=== PATIENT | female | born 1990 | race Caucasian/White ===

== ENCOUNTER 2018-09-28 14:56 | Observation (INO) | payer OTHER ==
--- NOTE | 2018-09-28 16:07 | XR ---
EXAMINATION TYPE: XR chest 2V DATE OF EXAM: 09/28/2018 COMPARISON: NONE HISTORY: Chest pain TECHNIQUE: Frontal and lateral views of the chest are obtained. FINDINGS: There is no focal air space opacity, pleural effusion, or pneumothorax seen. The cardiac silhouette size is within normal limits. The osseous structures are intact. There are cardiac leads . IMPRESSION: No acute cardiopulmonary process.
[2018-09-28 16:33] LABS: ALT 30 U/L (9-52); AST 20 U/L (14-36); Albumin 4.1 g/dL (3.5-5.0); Alkaline Phosphatase 59 U/L (38-126); Anion Gap 10 mmol/L; Blood Urea Nitrogen 10 mg/dL (7-17); Calcium 9.8 mg/dL (8.4-10.2); Carbon Dioxide 20 mmol/L (22-30); Chloride 109 mmol/L (98-107); Glucose 113 mg/dL (74-99); Lipase 66 U/L (23-300); Magnesium 1.7 mg/dL (1.6-2.3); Potassium 5.3 mmol/L (3.5-5.1); Sodium 139 mmol/L (137-145); Total Bilirubin 0.7 mg/dL (0.2-1.3); Total Protein 7.4 g/dL (6.3-8.2)
[2018-09-28 16:41] LABS: Basophils # (A) 0.1 k/uL (0-0.2); Basophils % (A) 1 %; Eosinophils # (A) 0.4 k/uL (0-0.7); Eosinophils % (A) 3 %; HGB 14.1 gm/dL (11.4-16.0); Lymphocytes # (A) 2.7 k/uL (1.0-4.8); Lymphocytes % (A) 16 %; MCH 27.3 pg (25.0-35.0); MCHC 34.4 g/dL (31.0-37.0); MCV 79.4 fL (80.0-100.0); Mean Platelet Volume 7.3; Monocytes # (A) 0.8 k/uL (0-1.0); Monocytes % (A) 5 %; Neutrophils # (A) 12.8 k/uL (1.3-7.7); Neutrophils % (A) 75 %; Platelet Count 445 k/uL (150-450); RBC 5.17 m/uL (3.80-5.40); RDW 13.4 % (11.5-15.5); WBC 16.9 k/uL (3.8-10.6)
--- NOTE | 2018-09-28 16:52 | ED ---
General Adult HPI - General Chief complaint: Chest Pain Stated complaint: Chest Discomfort Time Seen by Provider: 09/28/18 15:25 Source: patient, RN notes reviewed, old records reviewed Mode of arrival: ambulatory Limitations: no limitations - History of Present Illness Initial comments: 28-year-old female history of hypertension, diabetes presenting with 3 days of intermittent chest pain. Describes the pain as a squeezing sensation in the center of her chest. She also reports some epigastric pain and right upper quadrant pain. Patient was sent over by her primary care physician for evaluation, given her risk factors. She denies pain at the time my evaluation. Denies dyspnea. Denies significant vomiting. Denies abdominal pain. Denies diaphoresis. No known history of coronary artery disease. No history of DVT or PE. - Related Data Home Medications Medication Instructions Recorded Confirmed Aspirin EC [Ecotrin Low Dose] 81 mg PO DAILY 09/28/18 09/28/18 Cholecalciferol [Vitamin D3] 5,000 unit PO DAILY 09/28/18 09/28/18 Ferrous Sulfate [Feosol] 325 mg PO DAILY 09/28/18 09/28/18 [place] Control 1 tab PO DAILY 09/28/18 09/28/18 Lisinopril [Zestril] 10 mg PO DAILY 09/28/18 09/28/18 [place]-3 Fatty Acids/Fish Oil [Fish 1 cap PO DAILY 09/28/18 09/28/18 Oil 1,000 mg Softgel] metFORMIN HCL 1,000 mg PO BID 09/28/18 09/28/18 Allergies Allergy/AdvReac Type Severity Reaction Status Date / Time No Known Allergies Allergy Verified 09/28/18 15:54 Review of Systems ROS Statement: Those systems with pertinent positive or pertinent negative responses have been documented in the HPI. ROS Other: All systems not noted in ROS Statement are negative. Past Medical History Past Medical History: Diabetes Mellitus, Hypertension History of Any Multi-Drug Resistant Organisms: None Reported Past Surgical History: No Surgical Hx Reported Past Psychological History: No Psychological Hx Reported Smoking Status: Never smoker Past Alcohol Use History: Occasional Past Drug Use History: None Reported General Exam Limitations: no limitations General appearance: alert, in no apparent distress Head exam: Present: atraumatic, normocephalic Eye exam: Present: normal appearance, PERRL ENT exam: Present: normal exam Neck exam: Present: normal inspection. Absent: tenderness, meningismus Respiratory exam: Present: normal lung sounds bilaterally. Absent: respiratory distress, wheezes Cardiovascular Exam: Present: regular rate, normal rhythm GI/Abdominal exam: Present: soft, tenderness (Mild epigastric and right upper quadrant tenderness). Absent: distended, guarding Extremities exam: Present: normal inspection, normal capillary refill. Absent: pedal edema Neurological exam: Present: alert, oriented X3, CN II-XII intact. Absent: motor sensory deficit Psychiatric exam: Present: normal affect, normal mood Skin exam: Present: warm, dry, intact. Absent: cyanosis, diaphoretic Course Vital Signs 09/28/18 09/28/18 15:21 17:18 Temperature 98.3 F Pulse Rate 82 90 Respiratory 20 16 Rate Blood Pressure 146/99 151/80 O2 Sat by Pulse 99 100 Oximetry EKG Findings - EKG Comments: EKG Findings:: EKG: Normal sinus rhythm, rate 91, MN interval 152, QRS duration 92, QTC 4:30, no ST segment elevation or depression. T waves are upright. Medical Decision Making - Medical Decision Making 28-year-old female with past central chest pressure, and intermittent right upper quadrant pain. In the emergency department she receives workup for both right upper quadrant pain and chest pain. EKG is nonischemic, initial troponin negative. Chest x-ray negative for acute cardiopulmonary disease. Ultrasound does show concern for increased gallbladder wall thickness as well as numerous gallstones and cholelithiasis. Case is discussed with general surgery, Dr. Verdugo, we will admit for IV antibiotics, possible cholecystectomy. Patient placed on a low-fat diet. Culture,serial troponins will be obtained to complete chest pain workup. - Lab Data Result diagrams: 09/28/18 16:15 09/28/18 16:15 Lab Results 09/28/18 09/28/18 09/28/18 Range/Units 16:15 16:15 16:15 WBC 16.9 H (3.8-10.6) k/uL RBC 5.17 (3.80-5.40) m/uL Hgb 14.1 (11.4-16.0) gm/dL Hct 41.0 (34.0-46.0) % MCV 79.4 L (80.0-100.0) fL MCH 27.3 (25.0-35.0) pg MCHC 34.4 (31.0-37.0) g/dL RDW 13.4 (11.5-15.5) % Plt Count 445 (150-450) k/uL Neutrophils % 75 % Lymphocytes % 16 % Monocytes % 5 % Eosinophils % 3 % Basophils % 1 % Neutrophils # 12.8 H (1.3-7.7) k/uL Lymphocytes # 2.7 (1.0-4.8) k/uL Monocytes # 0.8 (0-1.0) k/uL Eosinophils # 0.4 (0-0.7) k/uL Basophils # 0.1 (0-0.2) k/uL PT (9.0-12.0) sec INR (<1.2) APTT (22.0-30.0) sec Sodium 139 (137-145) mmol/L Potassium 5.3 H (3.5-5.1) mmol/L Chloride 109 H (98-107) mmol/L Carbon Dioxide 20 L (22-30) mmol/L Anion Gap 10 mmol/L BUN 10 (7-17) mg/dL Creatinine 0.53 (0.52-1.04) mg/dL Est GFR (CKD-EPI)AfAm >90 (>60 ml/min/1.73 sqM) Est GFR (CKD-EPI)NonAf >90 (>60 ml/min/1.73 sqM) Glucose 113 H (74-99) mg/dL Calcium 9.8 (8.4-10.2) mg/dL Magnesium 1.7 (1.6-2.3) mg/dL Total Bilirubin 0.7 (0.2-1.3) mg/dL AST 20 (14-36) U/L ALT 30 (9-52) U/L Alkaline Phosphatase 59 (38-126) U/L Troponin I (0.000-0.034) ng/mL NT-Pro-B Natriuret Pep 235 pg/mL Total Protein 7.4 (6.3-8.2) g/dL Albumin 4.1 (3.5-5.0) g/dL Lipase 66 (23-300) U/L 09/28/18 09/28/18 Range/Units 16:15 16:34 WBC (3.8-10.6) k/uL RBC (3.80-5.40) m/uL Hgb (11.4-16.0) gm/dL Hct (34.0-46.0) % MCV (80.0-100.0) fL MCH (25.0-35.0) pg MCHC (31.0-37.0) g/dL RDW (11.5-15.5) % Plt Count (150-450) k/uL Neutrophils % % Lymphocytes % % Monocytes % % Eosinophils % % Basophils % % Neutrophils # (1.3-7.7) k/uL Lymphocytes # (1.0-4.8) k/uL Monocytes # (0-1.0) k/uL Eosinophils # (0-0.7) k/uL Basophils # (0-0.2) k/uL PT 10.3 (9.0-12.0) sec INR 1.0 (<1.2) APTT 24.7 (22.0-30.0) sec Sodium (137-145) mmol/L Potassium (3.5-5.1) mmol/L Chloride (98-107) mmol/L Carbon Dioxide (22-30) mmol/L Anion Gap mmol/L BUN (7-17) mg/dL Creatinine (0.52-1.04) mg/dL Est GFR (CKD-EPI)AfAm (>60 ml/min/1.73 sqM) Est GFR (CKD-EPI)NonAf (>60 ml/min/1.73 sqM) Glucose (74-99) mg/dL Calcium (8.4-10.2) mg/dL Magnesium (1.6-2.3) mg/dL Total Bilirubin (0.2-1.3) mg/dL AST (14-36) U/L ALT (9-52) U/L Alkaline Phosphatase (38-126) U/L Troponin I <0.012 (0.000-0.034) ng/mL NT-Pro-B Natriuret Pep pg/mL Total Protein (6.3-8.2) g/dL Albumin (3.5-5.0) g/dL Lipase (23-300) U/L Disposition Clinical Impression: Chest pain, Cholecystitis, acute Disposition: ADMITTED IP TO THIS HOSP Condition: Stable Is patient prescribed a controlled substance at d/c from ED?: No Referrals: Jaswinder Rivera MD [Primary Care Provider] - 1-2 days Decision to Admit Reason: Admit from EC Decision Date: 09/28/18 Decision Time: 18:29
[2018-09-28 16:59] LABS: Prothrombin Time 10.3 sec (9.0-12.0)
[2018-09-28 17:00] LABS: Partial Thromboplastin Time 24.7 sec (22.0-30.0)
--- NOTE | 2018-09-28 17:50 | US ---
EXAMINATION TYPE: US gallbladder DATE OF EXAM: 09/28/2018 COMPARISON: NONE CLINICAL HISTORY: Pain. EXAM MEASUREMENTS: Liver Length: 15.4 cm Gallbladder Wall: 0.5 cm CBD: not visualized cm Right Kidney: 17.0 x 5.2 x 5.2 cm Patient 5'7", 372lbs, technically very difficult study - with very limited visualization. Pancreas: Obscured by bowel gas Liver: Increased attenuation, unable to visualize vessels, unable to penetrate, limited visualizatio n Gallbladder: VINCENT sign, stones, questionable thickened GB wall. No sonographic Bacon sign. CBD: obscured by bowel gas/obesity Right Kidney: multiple cysts, largest measuring 3.3 x x 2.1 x 3.7cm, enlarged IMPRESSION: 1) Limited examination due to body habitus and overlying bowel gas, prominently limiting visualizati on. 2) Cholelithiasis fills the gallbladder lumen.
[2018-09-28] MEDS ORDERED: PIPERACILLIN-TAZOBACTAM 3.375 GM in SODIUM CHLORIDE 0.9% 100 ML IVPB STA (17:55)
[2018-09-28] MEDS ORDERED: NALOXONE 0.4 MG/ML 1 ML VIAL IV PRN (18:16)
[2018-09-28] MEDS ORDERED: HYDROmorphone 0.5 MG/0.5 ML SYRINGE IVP PRN (18:16)
[2018-09-28] MEDS ORDERED: ONDANSETRON 4 MG/2 ML VIAL IVP PRN (18:16)
[2018-09-28] MEDS ORDERED: ACETAMINOPHEN TAB 325 MG TAB PO PRN (18:16)
[2018-09-28] MEDS ORDERED: SODIUM CHLORIDE 0.9% 1,000 ML IV SCH (18:30)
[2018-09-28 21:25] LABS: Glucose,Whole Blood 101 mg/dL (75-99)
[2018-09-28] MEDS: INSULIN ASPART (NovoLOG) 100 UNIT/ML VIAL SQ SCH (21:44)
[2018-09-29] MEDS: PIPERACILLIN-TAZOBACTAM 3.375 GM in SODIUM CHLORIDE 0.9% 100 ML IVPB SCH ×2 (00:17→09:02)
[2018-09-29 06:17] VITALS: BMI 58.2
[2018-09-29 06:54] LABS: Glucose,Whole Blood 108 mg/dL (75-99)
[2018-09-29] MEDS: INSULIN ASPART (NovoLOG) 100 UNIT/ML VIAL SQ SCH ×2 (08:33→12:41)
[2018-09-29] MEDS ORDERED: FAMOTIDINE 20 MG TAB PO SCH (09:00)
[2018-09-29] MEDS ORDERED: LISINOPRIL 10 MG TAB PO SCH (09:00)
[2018-09-29 09:02] VITALS: BP 137/79; PULSE 76; RESP 16; TEMP 98.9
--- NOTE | 2018-09-29 10:10 | P.GSHP ---
History of Present Illness H&P Date: 09/29/18 Chief Complaint: Right upper quadrant pain This a 28-year-old female with complex right quadrant pain. Patient was worked up emergency room she is found have evidence of cholelithiasis. Patient was admitted overnight for observation. Patient states her pain is better this morning. Past Medical History Past Medical History: Diabetes Mellitus, Hypertension History of Any Multi-Drug Resistant Organisms: None Reported Past Surgical History: No Surgical Hx Reported Past Anesthesia/Blood Transfusion Reactions: No Reported Reaction Past Psychological History: No Psychological Hx Reported Smoking Status: Never smoker Past Alcohol Use History: Occasional Past Drug Use History: None Reported - Past Family History Mother Family Medical History: No Reported History Father Family Medical History: No Reported History Medications and Allergies Home Medications Medication Instructions Recorded Confirmed Type Aspirin EC [Ecotrin Low Dose] 81 mg PO DAILY 09/28/18 09/28/18 History Cholecalciferol [Vitamin D3] 5,000 unit PO DAILY 09/28/18 09/28/18 History Ferrous Sulfate [Feosol] 325 mg PO DAILY 09/28/18 09/28/18 History [place] Control 1 tab PO DAILY 09/28/18 09/28/18 History Lisinopril [Zestril] 10 mg PO DAILY 09/28/18 09/28/18 History [place]-3 Fatty Acids/Fish Oil [Fish 1 cap PO DAILY 09/28/18 09/28/18 History Oil 1,000 mg Softgel] metFORMIN HCL 1,000 mg PO BID 09/28/18 09/28/18 History Allergies Allergy/AdvReac Type Severity Reaction Status Date / Time No Known Allergies Allergy Verified 09/28/18 15:54 Surgical - Exam Vital Signs Temp Pulse Resp BP Pulse Ox 98.3 F 82 20 146/99 99 09/28/18 15:21 09/28/18 15:21 09/28/18 15:21 09/28/18 15:21 09/28/18 15:21 - General well developed, well nourished, no distress - Eyes PERRL - ENT normal pinna - Neck no masses - Respiratory normal expansion - Cardiovascular Rhythm: regular - Abdomen Mild epigastric pain Abdomen: soft Results - Labs 09/28/18 16:15 09/28/18 16:15 Abnormal Lab Results - Last 24 Hours (Table) 09/28/18 09/28/1819 Range/Units 16:15 16:15 21:24 WBC 16.9 H (3.8-10.6) k/uL MCV 79.4 L (80.0-100.0) fL Neutrophils # 12.8 H (1.3-7.7) k/uL Potassium 5.3 H (3.5-5.1) mmol/L Chloride 109 H (98-107) mmol/L Carbon Dioxide 20 L (22-30) mmol/L Glucose 113 H (74-99) mg/dL POC Glucose (mg/dL) 101 H (75-99) mg/dL 09/29/18 Range/Units 06:53 WBC (3.8-10.6) k/uL MCV (80.0-100.0) fL Neutrophils # (1.3-7.7) k/uL Potassium (3.5-5.1) mmol/L Chloride (98-107) mmol/L Carbon Dioxide (22-30) mmol/L Glucose (74-99) mg/dL POC Glucose (mg/dL) 108 H (75-99) mg/dL Diabetes panel 09/28/18 Range/Units 16:15 Sodium 139 (137-145) mmol/L Potassium 5.3 H (3.5-5.1) mmol/L Chloride 109 H (98-107) mmol/L Carbon Dioxide 20 L (22-30) mmol/L BUN 10 (7-17) mg/dL Creatinine 0.53 (0.52-1.04) mg/dL Glucose 113 H (74-99) mg/dL Calcium 9.8 (8.4-10.2) mg/dL AST 20 (14-36) U/L ALT 30 (9-52) U/L Alkaline Phosphatase 59 (38-126) U/L Total Protein 7.4 (6.3-8.2) g/dL Albumin 4.1 (3.5-5.0) g/dL Calcium panel 09/28/18 Range/Units 16:15 Calcium 9.8 (8.4-10.2) mg/dL Albumin 4.1 (3.5-5.0) g/dL Pituitary panel 09/28/18 Range/Units 16:15 Sodium 139 (137-145) mmol/L Potassium 5.3 H (3.5-5.1) mmol/L Chloride 109 H (98-107) mmol/L Carbon Dioxide 20 L (22-30) mmol/L BUN 10 (7-17) mg/dL Creatinine 0.53 (0.52-1.04) mg/dL Glucose 113 H (74-99) mg/dL Calcium 9.8 (8.4-10.2) mg/dL Adrenal panel 09/28/18 Range/Units 16:15 Sodium 139 (137-145) mmol/L Potassium 5.3 H (3.5-5.1) mmol/L Chloride 109 H (98-107) mmol/L Carbon Dioxide 20 L (22-30) mmol/L BUN 10 (7-17) mg/dL Creatinine 0.53 (0.52-1.04) mg/dL Glucose 113 H (74-99) mg/dL Calcium 9.8 (8.4-10.2) mg/dL Total Bilirubin 0.7 (0.2-1.3) mg/dL AST 20 (14-36) U/L ALT 30 (9-52) U/L Alkaline Phosphatase 59 (38-126) U/L Total Protein 7.4 (6.3-8.2) g/dL Albumin 4.1 (3.5-5.0) g/dL Assessment and Plan Assessment: Right upper quadrant pain Cholelithiasis Patient was scheduled for laparoscopic ostectomy on Monday. Her labs will be rechecked today. If her blood work has improved she may be discharged home for follow-up as an outpatient cholecystectomy.
[2018-09-29 10:51] LABS: Eosinophils % (A) 3 %
[2018-09-29 10:53] LABS: Basophils # (A) 0.1 k/uL (0-0.2); Basophils % (A) 1 %; Eosinophils # (A) 0.4 k/uL (0-0.7); HCT 38.2 % (34.0-46.0); HGB 12.9 gm/dL (11.4-16.0); Lymphocytes # (A) 3.3 k/uL (1.0-4.8); Lymphocytes % (A) 24 %; MCH 26.9 pg (25.0-35.0); MCHC 33.9 g/dL (31.0-37.0); MCV 79.3 fL (80.0-100.0); Mean Platelet Volume 9.6; Monocytes # (A) 0.7 k/uL (0-1.0); Monocytes % (A) 5 %; Neutrophils # (A) 9.1 k/uL (1.3-7.7); Neutrophils % (A) 67 %; Platelet Count 378 k/uL (150-450); RBC 4.81 m/uL (3.80-5.40); RDW 15.1 % (11.5-15.5); WBC 13.6 k/uL (3.8-10.6)
[2018-09-29 11:01] LABS: ALT 40 U/L (9-52); AST 20 U/L (14-36); Albumin 3.7 g/dL (3.5-5.0); Alkaline Phosphatase 45 U/L (38-126); Anion Gap 12 mmol/L; Blood Urea Nitrogen 12 mg/dL (7-17); Calcium 9.4 mg/dL (8.4-10.2); Carbon Dioxide 22 mmol/L (22-30); Chloride 107 mmol/L (98-107); Glucose 108 mg/dL (74-99); Potassium 4.4 mmol/L (3.5-5.1); Sodium 141 mmol/L (137-145); Total Bilirubin 0.7 mg/dL (0.2-1.3); Total Protein 6.7 g/dL (6.3-8.2)
[2018-09-29 12:11] LABS: Glucose,Whole Blood 104 mg/dL (75-99)
[2018-09-29 22:22] LABS: Hemoglobin A1C 6.8 % (4.0-6.0)
== END 2018-09-29 14:17 | disposition home or self-care (01) ==
LOC: EC 14:56 → 4SSUR 18:16
PROVIDERS: ADMIT Surgery; ATTEND Surgery
DX: K80.00 Calculus of gallbladder with acute cholecystitis without obstruction (principal); R07.89 Other chest pain; I10 Essential (primary) hypertension; E11.9 Type 2 diabetes mellitus without complications; Z79.82 Long term (current) use of aspirin; Z79.3 Long term (current) use of hormonal contraceptives; Z79.84 Long term (current) use of oral hypoglycemic drugs; Z79.899 Other long term (current) drug therapy
CPT/HCPCS: 96366 ×3; 96365; 99285; 36415; 93005; 83880; 80053 ×2; 83690; 83735; 84484 ×2; 85025 ×2; 85610; 85730; 83036; 71046; 76705; G0378 ×2; J2543 ×2

== ENCOUNTER → 2018-10-01 | Day surgery (SDC) | payer OTHER ==
[~2018-10-01] MED LIST: BUPIVACAINE-EPI 0.5%-1:200,000 10 ML VIAL SQ ONE; DEXAMETHASONE SOD PHOSPHATE 10 MG/ML 1 ML VIAL IV ONE; ESMOLOL 100 MG/10 ML VIAL ONE; GLYCOPYRROLATE 0.2 MG/ML 2 ML VIAL ONE; HEPARIN SODIUM,PORCINE 5,000 UNIT/ML 1 ML VIAL SQ ONE; HYDROcodone/APAP 7.5-325MG 1 EACH TAB PO ONE; KETOROLAC 30 MG/ML 1 ML VIAL ONE; LACTATED RINGERS 1,000 ML IV ONE; LIDOCAINE 1% INJ 10MG/ML (20 ML MDV) ONE; MIDAZOLAM 2 MG/2 ML VIAL ONE; NEOSTIGMINE 1 MG/ML 10 ML VIAL ONE; ONDANSETRON 4 MG/2 ML VIAL IVP ONE; PROPOFOL 10 MG/ML 20 ML VIAL IV ONE; ROCURONIUM BROMIDE 10 MG/ML 10 ML VIAL IV ONE; SUCCINYLCHOLINE CHLORIDE VIAL 200 MG/10 ML VIAL IV ONE; ceFAZolin 3 GM in SODIUM CHLORIDE 0.9% 100 ML IVPB ONE; ePHEDrine SULFATE/0.9% NACL/PF 50 MG/5 ML SYRINGE IV ONE; fentaNYL (PF) 50 MCG/ML 2 ML AMP ONE
[2018-10-01 10:51] LABS: Glucose,Whole Blood 116 mg/dL (75-99)
--- NOTE | 2018-10-01 12:44 | P.OP ---
Date of Procedure: 10/01/18 Preoperative Diagnosis: Cholecystitis Cholelithiasis Morbid obesity, BMI 57 Postoperative Diagnosis: Same Procedure(s) Performed: Laparoscopic cholecystectomy Anesthesia: LUIS Surgeon: Moshe Verdugo Estimated Blood Loss (ml): 5 Pathology: other (Gallbladder) Condition: stable Disposition: PACU Description of Procedure: The patient was placed on the operating table. The patient received a general endotracheal tube anesthesia. The patients abdomen was prepped and draped in the usual sterile fashion. Next, a marifer in the skin was made left upper quadrant. The Veress needles placed into the. Cavity. The abdomen was insufflated. A supraumbilical skin incision was made and then a 5 mm trocar was placed into the peritoneal cavity under direct visualization. 150 mm trocar was used for all trocar sites due to the patient's thick abdominal wall.. Following this the laparoscope was placed in the peritoneal cavity. The patient was placed in the head-up, right side up position and then a 5 mm trocar was placed in the right lateral and right subcostal position under direct visualization. A 10 mm trocar was placed in the epigastric position. The abdominal wall was quite thick in this limited the movement of the instruments. The gallbladder was grasped in the fundus and infundibulum. Traction on the gallbladder was placed in the lateral and the cephalad positions. The triangle of Calot was visualized.. The cystic duct was bluntly dissected until the union of the cystic duct and common bile duct was seen. Cystic duct was then ligated using 2-0 Ethibond suture in the timeout device. The cystic duct was then divided and sealed with the Harmonic scissors. The cystic artery divided and sealed with the Harmonic scissors. The gallbladder was then removed from the liver bed using Harmonic scissors. The gallbladder was placed into an Endo Catch bag. The gallbladder was then extracted through the epigastric port site. Operative field was checked for any bleeding spots and Harmonic scissors was used to coagulate the liver bed. The abdomen was irrigated. The trocars were removed. The skin was closed using interrupted 3-0 Vicryl suture. Dermabond dressing were applied. The patient tolerated the procedure well.
[2018-10-01 13:04] VITALS: TEMP 97
[2018-10-01 13:36] LABS: Glucose,Whole Blood 156 mg/dL (75-99)
[2018-10-01 14:22] VITALS: RESP 18
[2018-10-01 14:41] VITALS: BP 155/89; PULSE 88
== END | disposition home or self-care (01) ==
LOC: OR 10:12
PROVIDERS: ATTEND Surgery
DX: K80.10 Calculus of gallbladder with chronic cholecystitis without obstruction (principal); E66.01 Morbid (severe) obesity due to excess calories; Z68.43 Body mass index [BMI] 50.0-59.9, adult; E11.9 Type 2 diabetes mellitus without complications; I10 Essential (primary) hypertension; Z79.82 Long term (current) use of aspirin; Z79.899 Other long term (current) drug therapy; Z79.84 Long term (current) use of oral hypoglycemic drugs
CPT/HCPCS: 81025; 88304; 47562; J2250; J0330; J1644; J1100; J2710; J0690; J2405; J2001; J3010; J1885; J2704

== ENCOUNTER → 2019-07-15 | Outpatient (CLI) | payer OTHER ==
[2019-07-15 16:06] LABS: African American GFR (CKD) 141.8 (60.0-200.0); Non-African American GFR(CKD) 122.3 (60.0-200.0)
== END | disposition home or self-care (01) ==
LOC: LABWHC1 10:15
PROVIDERS: ATTEND Midwife
DX: R10.11 Right upper quadrant pain (principal)
CPT/HCPCS: 36415; 82150; 82565; 83690; 84520

== ENCOUNTER → 2019-07-20 | Outpatient (CLI) | payer OTHER ==
--- NOTE | 2019-07-21 13:14 | CT ---
EXAMINATION TYPE: CT abdomen w con DATE OF EXAM: 07/20/2019 COMPARISON: HISTORY: Right upper quadrant pain with belching and nausea x [address] DLP: 2662 mGycm Automated exposure control for dose reduction was used. TECHNIQUE: Helical acquisition of images was performed from the lung bases through the top of iliac crest to include entire abdomen. CONTRAST: Performed with Oral Contrast and with IV Contrast, patient injected with 100 mL of Isovue M300. FINDINGS: Small umbilical hernia contains fat LUNG BASES: No significant abnormality is appreciated. LIVER/GB: The liver shows low attenuation likely due to hepatic steatosis, liver is enlarged. Gallbla dder is not seen. PANCREAS: No significant abnormality is seen. SPLEEN: No significant abnormality is seen. ADRENALS: No significant abnormality is seen. KIDNEYS: There are extensive calcifications present within the right kidney, right-sided hydronephros is is present. Largest calcification in the renal pelvis is partial staghorn and measures approximate ly 3 cm x 3.2 cm x 2.4 cm. At the posterior calyx, there is some smaller calcification measuring 2 cm in greatest dimension. Inferiorly and anteriorly multiple small calcifications are suspected, there may be 5-10 calcifications within the largest measuring 14 mm. Right kidney remains enlarged. BOWEL: No significant abnormality is seen. LYMPH NODES: No significant abnormality is appreciated. OSSEOUS STRUCTURES: Extensive spondylosis present visualized spine. Facet arthropathy in the lower l umbar spine. FREE AIR: No Free Air visible ASCITES: None visible. RETROPERITONEAL ADENOPATHY: No Retroperitoneal Adenopathy visible. OTHER: IMPRESSION: HEPATOMEGALY AND HEPATIC STEATOSIS. POSTOP CHANGE. EXTENSIVE RIGHT-SIDED NEPHROLITHIASIS WITH HYDRONE PHROSIS
== END | disposition home or self-care (01) ==
LOC: RADCTMAIN 11:24
PROVIDERS: ATTEND Family Medicine
DX: N13.2 Hydronephrosis with renal and ureteral calculous obstruction (principal); K76.0 Fatty (change of) liver, not elsewhere classified; Z98.890 Other specified postprocedural states
CPT/HCPCS: 74160; Q9967 ×2

== ENCOUNTER → 2019-09-03 | Outpatient (CLI) | payer OTHER ==
[2019-09-03 09:57] LABS: Basophils # (A) 0.1 k/uL (0-0.2); Basophils % (A) 0 %; Eosinophils # (A) 0.4 k/uL (0-0.7); Eosinophils % (A) 3 %; HCT 41.6 % (34.0-46.0); HGB 13.6 gm/dL (11.4-16.0); Lymphocytes # (A) 3.8 k/uL (1.0-4.8); Lymphocytes % (A) 23 %; MCH 27.7 pg (25.0-35.0); MCHC 32.8 g/dL (31.0-37.0); MCV 84.4 fL (80.0-100.0); Mean Platelet Volume 7.4; Monocytes # (A) 0.6 k/uL (0-1.0); Monocytes % (A) 4 %; Neutrophils # (A) 11.5 k/uL (1.3-7.7); Neutrophils % (A) 69 %; Platelet Count 354 k/uL (150-450); RBC 4.93 m/uL (3.80-5.40); RDW 12.9 % (11.5-15.5); WBC 16.7 k/uL (3.8-10.6)
[2019-09-03 17:02] LABS: African American GFR (CKD) 141.8 (60.0-200.0); Albumin 4.1 g/dL (3.80-4.90); Albumin/Globulin Ratio 1.64 (1.60-3.17); Calcium 9.6 mg/dL (8.7-10.3); Globulin 2.5 g/dL (1.6-3.3); Non-African American GFR(CKD) 122.3 (60.0-200.0); Potassium 4.5 mmol/L (3.5-5.5); Total Bilirubin 0.5 mg/dL (0.2-1.2); Total Protein 6.6 g/dL (6.2-8.2)
[2019-09-03 17:31] LABS: Hemoglobin A1C 6.6 % (4.0-6.0)
== END | disposition home or self-care (01) ==
LOC: LABWHC1 09:11
PROVIDERS: ATTEND Family Medicine
DX: E11.9 Type 2 diabetes mellitus without complications (principal)
CPT/HCPCS: 36415; 80053; 83036; 85025

== ENCOUNTER → 2019-12-10 | Outpatient (CLI) | payer OTHER ==
--- NOTE | 2019-12-10 10:54 | XR ---
EXAMINATION TYPE: XR abdomen 1V DATE OF EXAM: 12/10/2019 HISTORY: Pain Comparison: None.Single KUB is submitted for interpretation. Findings: Right renal calculi: 1.6 cm calculus overlying the mid pole of the right kidney. Right ureteral calculi: None Visualized. Left renal calculi: 1.3 cm calculus in the mid to lower pole left kidney. Left ureteral calculi: None Visualized. Pelvic calcifications: None Visualized. Bowel gas pattern is unremarkable. No free air. No mass effects. IMPRESSION: 1. Bilateral renal calculi.
== END | disposition home or self-care (01) ==
LOC: RADXRMAIN 10:31
PROVIDERS: ATTEND Surgery
DX: N20.0 Calculus of kidney (principal)
CPT/HCPCS: 74018

== ENCOUNTER → 2020-03-04 | Outpatient (CLI) | payer OTHER ==
--- NOTE | 2020-03-04 16:23 | XR ---
EXAMINATION TYPE: XR KUB DATE OF EXAM: 03/04/2020 Comparison: None Clinical History: 30-year-old female right kidney stone, N20.0 Findings: No definite suspicious calcification is identified. Nonspecific, nonobstructive bowel gas pattern. Mi ld stool in the rectum. Lung bases are excluded. Impression: No definite suspicious calcification seen radiographically.
== END | disposition home or self-care (01) ==
LOC: RAD 15:47
PROVIDERS: ATTEND Surgery
DX: N20.0 Calculus of kidney (principal)
CPT/HCPCS: 74018

== ENCOUNTER → 2020-03-05 | Outpatient (CLI) | payer OTHER ==
[2020-03-05 11:39] LABS: Basophils # (A) 0.1 k/uL (0-0.2); Basophils % (A) 0 %; Eosinophils # (A) 0.5 k/uL (0-0.7); Eosinophils % (A) 4 %; HCT 44.8 % (34.0-46.0); HGB 14.4 gm/dL (11.4-16.0); Lymphocytes # (A) 3.2 k/uL (1.0-4.8); Lymphocytes % (A) 23 %; MCH 27.4 pg (25.0-35.0); MCHC 32.1 g/dL (31.0-37.0); MCV 85.5 fL (80.0-100.0); Mean Platelet Volume 7.2; Monocytes # (A) 0.7 k/uL (0-1.0); Monocytes % (A) 5 %; Neutrophils # (A) 9.3 k/uL (1.3-7.7); Neutrophils % (A) 66 %; Platelet Count 385 k/uL (150-450); RBC 5.24 m/uL (3.80-5.40); RDW 12.8 % (11.5-15.5)
[2020-03-05 15:36] LABS: African American GFR (CKD) 140.8 (60.0-200.0); Albumin 4.3 g/dL (3.80-4.90); Albumin/Globulin Ratio 1.72 (1.60-3.17); Anion Gap 9.6 mmol/L (4.00-12.00); Calcium 9.6 mg/dL (8.7-10.3); Carbon Dioxide 25.4 mmol/L (21.6-31.8); Chol/HDL Ratio 5.75; Globulin 2.5 g/dL (1.6-3.3); LDL Cholesterol,Calculated 143.6 mg/dL (0.0-131.0); Non-African American GFR(CKD) 121.5 (60.0-200.0); Potassium 4.8 mmol/L (3.5-5.5); Total Bilirubin 0.5 mg/dL (0.2-1.2); Total Protein 6.8 g/dL (6.2-8.2); VLDL Calculation 46.4 mg/dL (5.00-40.00)
[2020-03-05 17:03] LABS: Hemoglobin A1C 7.2 % (4.0-6.0)
== END | disposition home or self-care (01) ==
LOC: LABWHC1 10:13
PROVIDERS: ATTEND Family Medicine
DX: E11.9 Type 2 diabetes mellitus without complications (principal)
CPT/HCPCS: 36415; 80053; 80061; 83036; 85025

== ENCOUNTER → 2020-03-21 | Outpatient (CLI) | payer OTHER | END | disposition home or self-care (01) | LOC: PEDOP 12:37 | PROVIDERS: ATTEND Internal Medicine Hematology & Oncology | DX: Z53.9 Procedure and treatment not carried out, unspecified reason (principal) ==

== ENCOUNTER → 2020-04-03 | Outpatient (CLI) | payer OTHER ==
[2020-04-03 13:24] LABS: Basophils # (A) 0.1 k/uL (0-0.2); Basophils % (A) 1 %; Eosinophils # (A) 0.5 k/uL (0-0.7); Eosinophils % (A) 4 %; HCT 44.5 % (34.0-46.0); HGB 14.3 gm/dL (11.4-16.0); Lymphocytes % (A) 24 %; MCH 28.5 pg (25.0-35.0); MCHC 32.1 g/dL (31.0-37.0); MCV 88.5 fL (80.0-100.0); Mean Platelet Volume 7.3; Monocytes # (A) 0.5 k/uL (0-1.0); Monocytes % (A) 4 %; Neutrophils # (A) 8.2 k/uL (1.3-7.7); Neutrophils % (A) 66 %; Platelet Count 351 k/uL (150-450); RBC 5.03 m/uL (3.80-5.40); RDW 13.2 % (11.5-15.5); WBC 12.5 k/uL (3.8-10.6)
[2020-04-03 22:41] LABS: African American GFR (CKD) 133.8 (60.0-200.0); Albumin 4.2 g/dL (3.80-4.90); Albumin/Globulin Ratio 1.62 (1.60-3.17); Anion Gap 15.2 mmol/L (4.00-12.00); BUN/Creat Ratio 17.14 Ratio (12.00-20.00); Calcium 9.2 mg/dL (8.7-10.3); Carbon Dioxide 19.8 mmol/L (21.6-31.8); Globulin 2.6 g/dL (1.6-3.3); Non-African American GFR(CKD) 115.4 (60.0-200.0); Potassium 4.5 mmol/L (3.5-5.5); Total Bilirubin 0.3 mg/dL (0.2-1.2); Total Protein 6.8 g/dL (6.2-8.2)
[2020-04-03 22:48] LABS: T4, Free (Free Thyroxine) 1.4 ng/dL (0.80-1.80)
== END | disposition home or self-care (01) ==
LOC: LABWHC1 12:56
PROVIDERS: ATTEND Nurse Practitioner Family
DX: R53.83 Other fatigue (principal); E55.9 Vitamin D deficiency, unspecified
CPT/HCPCS: 36415; 80053; 82306; 84439; 84443; 85025

== ENCOUNTER → 2020-06-03 | Outpatient (CLI) | payer OTHER ==
--- NOTE | 2020-06-03 15:35 | CONS ---
CONSULTATION DATE OF SERVICE: 06/03/2020 A 30-year-old lady who has been evaluated in the [facility] for possible obstructive sleep apnea-hypopnea syndrome. HISTORY OF PRESENT ILLNESS/SLEEP-WAKE EVALUATION: Patient usual sleep schedule from 10:30 p.m. to 7 a.m. on weekdays and until 8:30 a.m. on weekends. She does have problems with falling asleep. She has a TV set in bedroom. She sleeps in different positions, including side and stomach. She snores and has witnessed episodes of stopped breathing during the sleep. She wakes up from sleep about 2 times with nocturia and episodes of gasping for air. In the morning patient wakes up tired, falling asleep during the day. Worry about her sleep, has episodes of irritability. [place] Sleepiness Scale increased to 12. PAST MEDICAL HISTORY: Positive for hypertension, diabetes, iron deficiency, kidney stones. PAST SURGICAL HISTORY: Cholecystectomy, surgery for kidney stone on the right side. SOCIAL HISTORY: Negative for smoking, alcohol consumption occasional. FAMILY HISTORY: Hypertension, heart problems, asthma, arthritis, diabetes, liver problem, restless legs, cancer. MEDICATIONS: Metformin 1000 mg twice a day, Lisinopril 10 mg once a day. Ferrous sulfate 325 mg once a day. Aspirin 81 mg once a day. Vitamin D3 five thousand units once a day. REVIEW OF SYSTEMS: Awakenings from sleep, sleepiness during the day. PHYSICAL EXAM: lady without distress, BP 129/95, HR about 100, RR 18, height 5, 7, weight 408, mass index 63.9, temperature 97.2, oxygen saturation at room air 98%. OROPHARYNX: Low position of soft palate. Mallampati 3. White neck 20 inches in circumference. ABDOMEN: Obese. NECK: Supple, no JVD. Thyroid is not palpable. LUNGS: Clear to percussion and to auscultation. Good air exchange. No wheezing or rhonchi. HEART: S1, S2 regular. No murmurs, gallops, or rubs. EXTREMITIES: No clubbing or cyanosis. ACCOUNTING MANAGER CONTROLLER: Awake, alert, and oriented X3. Cranial nerves 2 to 7 intact. There is no fasciculation or atrophy. noted. No focal deficits observed. IMPRESSION: 1. Snoring witnessed episodes of stopped breathing during the sleep, low position of soft palate wide neck, sleepiness, obstructive sleep apnea-hypopnea syndrome. 2. Hypertension. 3. Diabetes mellitus. 4. History of iron deficiency. 5. Status post cholecystectomy. 6. History of kidney stones, status post surgical treatment. PLAN: 1. Polysomnography for evaluation of patient's breathing during sleep. 2. PAP/BiPAP titration if sleep study confirms obstructive sleep apnea-hypopnea syndrome. 3. Preferable position during sleep on the side. 4. No driving if patient feels any sleepiness. 5. I will see patient for follow up visit to explain results of testing and following plan. Thank you very much for referring this patient for consultation Sincerely, Chan Gregorio MD, PhD, FAASM Diplomat of [place] [employer] [place] [employer] Strip Cutting Machine Operator of [facility] [place] MMODL / IJN: [id number] /
== END | disposition home or self-care (01) ==
LOC: SLEEP 13:07
PROVIDERS: ATTEND Internal Medicine
DX: G47.33 Obstructive sleep apnea (adult) (pediatric) (principal); I10 Essential (primary) hypertension; E11.9 Type 2 diabetes mellitus without complications; N20.0 Calculus of kidney; Z86.2 Personal history of diseases of the blood and blood-forming organs and certain disorders involving the immune mechanism; Z90.49 Acquired absence of other specified parts of digestive tract; Z87.442 Personal history of urinary calculi; Z98.890 Other specified postprocedural states; Z79.84 Long term (current) use of oral hypoglycemic drugs; Z79.82 Long term (current) use of aspirin; Z79.899 Other long term (current) drug therapy
CPT/HCPCS: 99211

== ENCOUNTER 2020-08-06 11:49 | Observation (INO) | payer OTHER ==
[2020-08-06] MEDS ORDERED: SODIUM CHLORIDE 0.9% 500 ML 500 ML IV STA (12:21)
[2020-08-06] MEDS ORDERED: PANTOPRAZOLE 40 MG/10 ML VIAL IVP STA (12:23)
[2020-08-06] MEDS ORDERED: MAG HYDROX/AL HYDROX/SIMETH 30 ML, HYOSCYAMINE ELIXIR 10 ML, LIDOCAINE VISCOUS 2% 10 ML PO STA ×3 (12:23)
--- NOTE | 2020-08-06 12:25 | ED ---
General Adult HPI - General Chief complaint: Chest Pain Stated complaint: chest pain Time Seen by Provider: 08/06/20 12:14 Source: patient, RN notes reviewed, old records reviewed Mode of arrival: ambulatory Limitations: no limitations - History of Present Illness Initial comments: 30-year-old female presenting for evaluation of central chest discomfort. Symptoms have been present since yesterday. She thought these could be related to indigestion and she did have some vomiting associated with it. She's had a previous cholecystectomy. She has no known history of coronary artery disease. She does have a positive family history of coronary artery disease. She also reports some palpitations. No dyspnea. No fever. No cough. Pain does not ra diate. - Related Data Home Medications Medication Instructions Recorded Confirmed Ferrous Sulfate [Feosol] 325 mg PO DAILY 09/28/18 08/06/20 [place]-3 Fatty Acids/Fish Oil [Fish 1 cap PO DAILY 09/28/18 08/06/20 Oil 1,000 mg Softgel] lisinopriL [Zestril] 10 mg PO DAILY 09/28/18 08/06/20 metFORMIN HCL 1,000 mg PO BID 09/28/18 08/06/20 Ammonium Lactate Lotion 1 applic TOPICAL DAILY 08/06/20 08/06/20 [Lac-Hydrin 12% Lotion] Amoxic-Pot Clav 875-125Mg 1 tab PO Q12HR 08/06/20 08/06/20 [Augmentin 875-125] Cholecalciferol (Vitamin D3) 125 mcg PO DAILY 08/06/20 08/06/20 [Vitamin D3 (5000 Iu)] Fluticasone Nasal [place] [Flonase 1 spr EA NOSTRIL DAILY 08/06/20 08/06/20 Nasal [place]] Ketoconazole [Nizoral A-D] 1 applic TOPICAL DAILY 08/06/20 08/06/20 [place] 1 tab PO DAILY 08/06/20 08/06/20 Loratadine [Claritin] 10 mg PO DAILY 08/06/20 08/06/20 Allergies Allergy/AdvReac Type Severity Reaction Status Date / Time No Known Allergies Allergy Verified 08/06/20 12:54 Review of Systems ROS Statement: Those systems with pertinent positive or pertinent negative responses have been documented in the HPI. ROS Other: All systems not noted in ROS Statement are negative. Past Medical History Past Medical History: Blood Disorder, Diabetes Mellitus, Hypertension Additional Past Medical History / Comment(s): IRON DEFICIENCY ANEMIA. History of Any Multi-Drug Resistant Organisms: None Reported Past Surgical History: No Surgical Hx Reported Additional Past Surgical History / Comment(s): KIDNEY STONE REMOVAL FROM RIGHT URETER. Past Anesthesia/Blood Transfusion Reactions: No Reported Reaction Past Psychological History: No Psychological Hx Reported Smoking Status: Never smoker Past Alcohol Use History: Rare Past Drug Use History: None Reported - Past Family History Mother Family Medical History: No Reported History Father Family Medical History: No Reported History General Exam Limitations: no limitations General appearance: in no apparent distress Head exam: Present: atraumatic, normocephalic Eye exam: Present: normal appearance, PERRL ENT exam: Present: normal exam Neck exam: Present: normal inspection. Absent: tenderness, meningismus Respiratory exam: Present: normal lung sounds bilaterally. Absent: respiratory distress, wheezes Cardiovascular Exam: Present: normal rhythm, tachycardia GI/Abdominal exam: Present: soft. Absent: distended, tenderness, guarding, rebound Extremities exam: Present: normal inspection, normal capillary refill. Absent: pedal edema, calf tenderness Neurological exam: Present: alert, oriented X3, CN II-XII intact. Absent: motor sensory deficit Psychiatric exam: Present: normal affect, normal mood Skin exam: Present: warm, dry, intact. Absent: cyanosis, diaphoretic Course Vital Signs 08/06/20 08/06/20 11:51 14:23 Temperature 99.0 F Pulse Rate 116 H 107 H Respiratory 18 20 Rate Blood Pressure 183/102 113/89 O2 Sat by Pulse 95 Oximetry EKG Findings - EKG Comments: EKG Findings:: EKG: Sinus tachycardia rate of 109, [place] interval 154, QRS duration 86, QTC 444, no ST segment elevation. Medical Decision Making - Medical Decision Making 30 -year-old female presenting for evaluation of chest discomfort. EKG showing sinus tach without ST segment elevation. Patient has chest x-ray which is negative for acute cardiac primary disease. She has leukocytosis may be reactive, no specific infectious cause identified. Normal electrolytes, mildly elevated blood glucose, negative d-dimer, negative initial troponin. Given this patient's risk factors she will be placed in observation for serial chronic enzymes, telemetry, cardiology consultation. Case discussed with Severo bean for Dr. Rivera. - Lab Data Result diagrams: 08/06/20 12:27 08/06/20 12:27 Lab Results 08/06/20 08/06/20 08/06/20 Range/Units 12:27 12:27 12:27 WBC 16.2 H (3.8-10.6) k/uL RBC 5.48 H (3.80-5.40) m/uL Hgb 15.1 (11.4-16.0) gm/dL Hct 46.1 H (34.0-46.0) % MCV 84.1 (80.0-100.0) fL MCH 27.5 (25.0-35.0) pg MCHC 32.7 (31.0-37.0) g/dL RDW 13.0 (11.5-15.5) % Plt Count 364 (150-450) k/uL MPV 7.4 Neutrophils % 70 % Lymphocytes % 22 % Monocytes % 4 % Eosinophils % 3 % Basophils % 0 % Neutrophils # 11.3 H (1.3-7.7) k/uL Lymphocytes # 3.5 (1.0-4.8) k/uL Monocytes # 0.7 (0-1.0) k/uL Eosinophils # 0.4 (0-0.7) k/uL Basophils # 0.1 (0-0.2) k/uL PT 10.2 (9.0-12.0) sec INR 0.9 (<1.2) APTT 22.1 (22.0-30.0) sec D-Dimer 0.28 (<0.60) mg/L FEU Sodium (137-145) mmol/L Potassium (3.5-5.1) mmol/L Chloride (98-107) mmol/L Carbon Dioxide (22-30) mmol/L Anion Gap mmol/L BUN (7-17) mg/dL Creatinine (0.52-1.04) mg/dL Est GFR (CKD-EPI)AfAm (>60 ml/min/1.73 sqM) Est GFR (CKD-EPI)NonAf (>60 ml/min/1.73 sqM) Glucose (74-99) mg/dL Calcium (8.4-10.2) mg/dL Magnesium (1.6-2.3) mg/dL Total Bilirubin (0.2-1.3) mg/dL AST (14-36) U/L ALT (4-34) U/L Alkaline Phosphatase (38-126) U/L Troponin I (0.000-0.034) ng/mL Total Protein (6.3-8.2) g/dL Albumin (3.5-5.0) g/dL Lipase (23-300) U/L Urine Color Light Yellow Urine Appearance Clear (Clear) Urine pH 6.0 (5.0-8.0) Ur Specific [place] 1.010 (1.001-1.035) Urine Protein 2+ H (Negative) Urine Glucose (UA) Negative (Negative) Urine Ketones 1+ H (Negative) Urine Blood Negative (Negative) Urine Nitrite Negative (Negative) Urine Bilirubin Negative (Negative) Urine Urobilinogen <2.0 (<2.0) mg/dL Ur Leukocyte Esterase Trace H (Negative) Urine RBC 1 (0-5) /hpf Urine WBC 7 H (0-5) /hpf Ur Squamous Epith Cells <1 (0-4) /hpf Hyaline Casts 1 (0-2) /lpf Urine Mucus Rare H (None) /hpf Urine HCG, Qual (Not Detectd) 08/06/20 08/06/20 08/06/20 Range/Units 12:27 12:27 12:27 WBC (3.8-10.6) k/uL RBC (3.80-5.40) m/uL Hgb (11.4-16.0) gm/dL Hct (34.0-46.0) % MCV (80.0-100.0) fL MCH (25.0-35.0) pg MCHC (31.0-37.0) g/dL RDW (11.5-15.5) % Plt Count (150-450) k/uL MPV Neutrophils % % Lymphocytes % % Monocytes % % Eosinophils % % Basophils % % Neutrophils # (1.3-7.7) k/uL Lymphocytes # (1.0-4.8) k/uL Monocytes # (0-1.0) k/uL Eosinophils # (0-0.7) k/uL Basophils # (0-0.2) k/uL PT (9.0-12.0) sec INR (<1.2) APTT (22.0-30.0) sec D-Dimer (<0.60) mg/L FEU Sodium 137 (137-145) mmol/L Potassium 4.5 (3.5-5.1) mmol/L Chloride 100 (98-107) mmol/L Carbon Dioxide 25 (22-30) mmol/L Anion Gap 12 mmol/L BUN 12 (7-17) mg/dL Creatinine 0.56 (0.52-1.04) mg/dL Est GFR (CKD-EPI)AfAm >90 (>60 ml/min/1.73 sqM) Est GFR (CKD-EPI)NonAf >90 (>60 ml/min/1.73 sqM) Glucose 165 H (74-99) mg/dL Calcium 9.8 (8.4-10.2) mg/dL Magnesium 1.7 (1.6-2.3) mg/dL Total Bilirubin 0.7 (0.2-1.3) mg/dL AST 28 (14-36) U/L ALT 28 (4-34) U/L Alkaline Phosphatase 59 (38-126) U/L Troponin I <0.012 (0.000-0.034) ng/mL Total Protein 7.8 (6.3-8.2) g/dL Albumin 4.4 (3.5-5.0) g/dL Lipase 107 (23-300) U/L Urine Color Urine Appearance (Clear) Urine pH (5.0-8.0) Ur Specific [place] (1.001-1.035) Urine Protein (Negative) Urine Glucose (UA) (Negative) Urine Ketones (Negative) Urine Blood (Negative) Urine Nitrite (Negative) Urine Bilirubin (Negative) Urine Urobilinogen (<2.0) mg/dL Ur Leukocyte Esterase (Negative) Urine RBC (0-5) /hpf Urine WBC (0-5) /hpf Ur Squamous Epith Cells (0-4) /hpf Hyaline Casts (0-2) /lpf Urine Mucus (None) /hpf Urine HCG, Qual Not Detected (Not Detectd) Disposition Clinical Impression: Chest pain Disposition: ADMITTED IP TO THIS HOSP Condition: Stable Is patient prescribed a controlled substance at d/c from ED?: No Referrals: Jaswinder Rivera MD [Primary Care Provider] - 1-2 days Decision to Admit Reason: Admit from EC Decision Date: 08/06/20 Decision Time: 14:45
[2020-08-06 12:40] LABS: Basophils # (A) 0.1 k/uL (0-0.2); Basophils % (A) 0 %; Eosinophils # (A) 0.4 k/uL (0-0.7); Eosinophils % (A) 3 %; HCT 46.1 % (34.0-46.0); HGB 15.1 gm/dL (11.4-16.0); Lymphocytes # (A) 3.5 k/uL (1.0-4.8); Lymphocytes % (A) 22 %; MCH 27.5 pg (25.0-35.0); MCHC 32.7 g/dL (31.0-37.0); MCV 84.1 fL (80.0-100.0); Mean Platelet Volume 7.4; Monocytes # (A) 0.7 k/uL (0-1.0); Monocytes % (A) 4 %; Neutrophils # (A) 11.3 k/uL (1.3-7.7); Neutrophils % (A) 70 %; Platelet Count 364 k/uL (150-450); RBC 5.48 m/uL (3.80-5.40); WBC 16.2 k/uL (3.8-10.6)
[2020-08-06 12:53] LABS: ALT 28 U/L (4-34); AST 28 U/L (14-36); African American GFR (CKD) >90 (>60 ml/min/1.73 sqM); Albumin 4.4 g/dL (3.5-5.0); Alkaline Phosphatase 59 U/L (38-126); Anion Gap 12 mmol/L; Appearance,Urine Clear (Clear); Bilirubin,Urine Negative (Negative); Blood Urea Nitrogen 12 mg/dL (7-17); Blood,Urine Negative (Negative); Calcium 9.8 mg/dL (8.4-10.2); Carbon Dioxide 25 mmol/L (22-30); Chloride 100 mmol/L (98-107); Color,Urine Light Yellow; Glucose 165 mg/dL (74-99); Glucose,Urine (UA) Negative (Negative); Hyaline Casts,Urine 1 /lpf (0-2); Ketones,Urine 1+ (Negative); Leukocyte Esterase,Urine Trace (Negative); Lipase 107 U/L (23-300); Magnesium 1.7 mg/dL (1.6-2.3); Mucus,Urine Rare /hpf; Nitrite,Urine Negative (Negative); Non-African American GFR(CKD) >90 (>60 ml/min/1.73 sqM); Potassium 4.5 mmol/L (3.5-5.1); Protein,Urine 2+ (Negative); RBC,Urine 1 /hpf (0-5); Sodium 137 mmol/L (137-145); Squamous Epithelial Cell,Urine <1 /hpf (0-4); Total Bilirubin 0.7 mg/dL (0.2-1.3); Total Protein 7.8 g/dL (6.3-8.2); Urobilinogen,Urine <2.0 mg/dL (<2.0); WBC,Urine 7 /hpf (0-5)
[2020-08-06 13:14] LABS: D-Dimer 0.28 mg/L FEU (<0.60); INR 0.9 (<1.2); Partial Thromboplastin Time 22.1 sec (22.0-30.0); Prothrombin Time 10.2 sec (9.0-12.0)
--- NOTE | 2020-08-06 14:04 | XR ---
EXAMINATION TYPE: XR chest 2V DATE OF EXAM: 08/06/2020 COMPARISON: 09/28/2018 INDICATION: Chest pain TECHNIQUE: Frontal and lateral views of the chest are obtained. FINDINGS: The heart size is normal. The pulmonary vasculature is normal. The lungs are clear. IMPRESSION: 1. No acute pulmonary process.
[2020-08-06] MEDS ORDERED: ASPIRIN 325 MG TAB PO STA (14:22)
[2020-08-06] MEDS ORDERED: ACETAMINOPHEN TAB 325 MG TAB PO PRN (14:40)
[2020-08-06] MEDS ORDERED: MORPHINE SULFATE 4 MG/ML SYRINGE IV PRN (14:40)
[2020-08-06] MEDS ORDERED: NALOXONE 0.4 MG/ML 1 ML VIAL IV PRN (14:40)
[2020-08-06] MEDS ORDERED: ONDANSETRON 4 MG/2 ML VIAL IVP PRN (14:40)
--- NOTE | 2020-08-06 19:58 | P.HPIM ---
History of Present Illness H&P Date: 08/06/20 Chief Complaint: Chest discomfort 30-year-old female presented to the emergency department with midsternal chest discomfort with associated symptoms of shortness of breath and generalized weakness for 2 day duration. Patient has significant medical history of diabetes mellitus type 2 [id number]-[id number], hyperlipidemia, hypertension, iron deficiency anemia, and severely morbidly obesity. Patient denies fever, chills, chest discomfort, palpitations, shortness of breath, abdominal pain, nausea, vomiting, or diarrhea. Patient's diagnostic testing and emergency Department unremarkable. Consult to cardiology for expert medical opinion for treatment and recommendations. Review of Systems Constitutional: Reports fatigue Ears, nose, mouth and throat: Reports sinus pain Cardiovascular: Reports chest pain, Reports orthopnea Musculoskeletal: Reports muscle weakness Integumentary: Reports pruritus, Reports rash Psychiatric: Reports anxiety Past Medical History Past Medical History: Blood Disorder, Diabetes Mellitus, Hypertension Additional Past Medical History / Comment(s): IRON DEFICIENCY ANEMIA. History of Any Multi-Drug Resistant Organisms: None Reported Past Surgical History: No Surgical Hx Reported Additional Past Surgical History / Comment(s): KIDNEY STONE REMOVAL FROM RIGHT URETER. Past Anesthesia/Blood Transfusion Reactions: No Reported Reaction Past Psychological History: No Psychological Hx Reported Smoking Status: Never smoker Past Alcohol Use History: Rare Past Drug Use History: None Reported - Past Family History Mother Family Medical History: No Reported History Father Family Medical History: No Reported History Medications and Allergies Home Medications and Allergies Comment(s): Medications and ALLERGIES reviewed Home Medications Medication Instructions Recorded Confirmed Type Ferrous Sulfate [Feosol] 325 mg PO DAILY 09/28/18 08/06/20 History [place]-3 Fatty Acids/Fish Oil [Fish 1 cap PO DAILY 09/28/18 08/06/20 History Oil 1,000 mg Softgel] lisinopriL [Zestril] 10 mg PO DAILY 09/28/18 08/06/20 History metFORMIN HCL 1,000 mg PO BID 09/28/18 08/06/20 History Ammonium Lactate Lotion 1 applic TOPICAL DAILY 08/06/20 08/06/20 History [Lac-Hydrin 12% Lotion] Amoxic-Pot Clav 875-125Mg 1 tab PO Q12HR 08/06/20 08/06/20 History [Augmentin 875-125] Cholecalciferol (Vitamin D3) 125 mcg PO DAILY 08/06/20 08/06/20 History [Vitamin D3 (5000 Iu)] Fluticasone Nasal [place] [Flonase 1 spr EA NOSTRIL DAILY 08/06/20 08/06/20 History Nasal [place]] Ketoconazole [Nizoral A-D] 1 applic TOPICAL DAILY 08/06/20 08/06/20 History [place] 1 tab PO DAILY 08/06/20 08/06/20 History Loratadine [Claritin] 10 mg PO DAILY 08/06/20 08/06/20 History Allergies Allergy/AdvReac Type Severity Reaction Status Date / Time No Known Allergies Allergy Verified 08/06/20 12:54 Physical Exam Vitals: Vital Signs Temp Pulse Resp BP Pulse Ox 08/06/20 18:22 95 20 146/80 98 08/06/20 17:08 98.2 F 99 20 134/86 99 08/06/20 14:23 107 H 20 113/89 08/06/20 11:51 99.0 F 116 H 18 183/102 95 Intake and Output 08/06/20 08/06/20 08/06/20 06:59 14:59 22:59 Other: Weight 188.241 kg - Constitutional General appearance: cooperative, morbidly obese - EENT Eyes: EOMI, PERRLA Ears: bilateral: normal - Neck Neck: normal ROM Carotids: bilateral: upstroke normal Thyroid: bilateral: normal size - Respiratory Respiratory: bilateral: CTA (Anterior and posterior lung rust) - Cardiovascular Normal sinus rhythm Heart rate: 97 Rhythm: regular Heart sounds: normal: S1, S2 foot Peripheral Edema: bilateral: Trace radial pulse Peripheral Pulses: bilateral: Normal dorsalis pedis Peripheral Pulses: bilateral: Normal - Gastrointestinal General gastrointestinal: normal bowel sounds - Integumentary Integumentary: normal - Neurologic Neurologic: CNII-XII intact - Musculoskeletal Musculoskeletal: generalized weakness - Psychiatric Psychiatric: A&O x's 3, appropriate affect, intact judgment & insight Results CBC & Chem 7: 08/06/20 12:27 08/06/20 12:27 Labs: Abnormal Lab Results - Last 24 Hours (Table) 08/06/20 08/06/20 08/06/20 Range/Units 12:27 12:27 12:27 WBC 16.2 H (3.8-10.6) k/uL RBC 5.48 H (3.80-5.40) m/uL Hct 46.1 H (34.0-46.0) % Neutrophils # 11.3 H (1.3-7.7) k/uL Glucose 165 H (74-99) mg/dL Urine Protein 2+ H (Negative) Urine Ketones 1+ H (Negative) Ur Leukocyte Esterase Trace H (Negative) Urine WBC 7 H (0-5) /hpf Urine Mucus Rare H (None) /hpf Chest x-ray: report reviewed Thrombosis Risk Factor Assmnt - Choose All That Apply Any of the Below Risk Factors Present?: Yes Each Factor Represents 1 point: Obesity (BMI >25), Swollen legs (current) Thrombosis Risk Factor Assessment Total Risk Factor Score: 2 Thrombosis Risk Factor Assessment Level: Low Risk Assessment and Plan Assessment: Atypical chest painserial troponins, chest x-ray, and echocardiogram; consultation with cardiology for recommendations and treatment plan Hypertension-continue home medications Diabetes mellitus type 2 [id number] continue home medications and sliding scale Iron deficiency anemia continue ferrous sulfate Continue home medications Continue medical management Echocardiogram pending Full code Time with Patient: Greater than 30
[2020-08-06 22:01] LABS: Glucose,Whole Blood 156 mg/dL (75-99)
[2020-08-06] MEDS: AMOXIC-POT CLAV 875-125MG 1 EACH TAB PO SCH (22:21)
[2020-08-06] MEDS: metFORMIN 500 MG TAB PO SCH (22:21)
[2020-08-07 07:12] LABS: Basophils # (A) 0.1 k/uL (0-0.2); Basophils % (A) 1 %; Eosinophils # (A) 0.4 k/uL (0-0.7); Eosinophils % (A) 3 %; HCT 46.4 % (34.0-46.0); HGB 15.1 gm/dL (11.4-16.0); Lymphocytes # (A) 3.2 k/uL (1.0-4.8); Lymphocytes % (A) 25 %; MCHC 32.6 g/dL (31.0-37.0); MCV 86.1 fL (80.0-100.0); Mean Platelet Volume 7.7; Monocytes # (A) 0.7 k/uL (0-1.0); Monocytes % (A) 6 %; Neutrophils # (A) 8.4 k/uL (1.3-7.7); Neutrophils % (A) 65 %; Platelet Count 272 k/uL (150-450); RBC 5.39 m/uL (3.80-5.40); RDW 13.1 % (11.5-15.5)
--- NOTE | 2020-08-07 07:21 | ECHOF ---
Referral Reason:chest pain MEASUREMENTS -------- HEIGHT: 170.2 cm WEIGHT: 189.1 kg BP: 134/86 RVIDd: 3.3 cm (< 3.3) IVSd: 1.4 cm (0.6 - 1.1) LVIDd: 4.3 cm (3.9 - 5.3) LVPWd: 1.4 cm (0.6 - 1.1) IVSs: 1.9 cm LVIDs: 2.6 cm LVPWs: 1.8 cm LA Diam: 3.1 cm (2.7 - 3.8) Ao Diam: 2.8 cm (2.0 - 3.7) AV Cusp: 2.3 cm (1.5 - 2.6) MV EXCURSION: 19.913 mm (> 18.000) MV EF SLOPE: 73 mm/s (70 - 150) EPSS: 0.6 cm MV E Bernard: 0.71 m/s MV DecT: 215 ms MV A Bernard: 0.65 m/s MV E/A Ratio: 1.08 FINDINGS -------- Sinus rhythm. Resting tachycardia (HR>100bpm). This was a technically difficult study with suboptimal views. The left ventricular size is normal. There is moderate concentric left ventricular hypertrophy. O verall left ventricular systolic function is normal with, an EF between 55 - 60 %. The right ventricle is mildly enlarged. The left atrium is normal in size. The right atrial size is normal. The aortic valve is trileaflet, and appears structurally normal. No aortic stenosis or regurgitation. The mitral valve is normal. There is trace mitral regurgitation. The tricuspid valve was not well visualized. The pulmonic valve was not well visualized. There is no pulmonic regurgitation present. The aortic root size is normal. IVC Not well visulized. There is no pericardial effusion. CONCLUSIONS -------- 1. There is moderate concentric left ventricular hypertrophy. 2. Overall left ventricular systolic function is normal with, an EF between 55 - 60 %. 3. The right ventricle is mildly enlarged. 4. The aortic valve is trileaflet, and appears structurally normal. No aortic stenosis or regurgitati on. 5. There is trace mitral regurgitation. 6. There is no pericardial effusion. BRAZING FURNACE OPERATOR: Jael Harding RDCS
[2020-08-07 07:34] LABS: Glucose,Whole Blood 154 mg/dL (75-99)
[2020-08-07 07:40] LABS: ALT 29 U/L (4-34); AST 36 U/L (14-36); African American GFR (CKD) >90 (>60 ml/min/1.73 sqM); Albumin 3.9 g/dL (3.5-5.0); Albumin/Globulin Ratio 1.2; Alkaline Phosphatase 43 U/L (38-126); Anion Gap 10 mmol/L; Blood Urea Nitrogen 12 mg/dL (7-17); Calcium 9.3 mg/dL (8.4-10.2); Carbon Dioxide 25 mmol/L (22-30); Chloride 102 mmol/L (98-107); Globulin 3.3 g/dL; Glucose 154 mg/dL (74-99); Magnesium 1.9 mg/dL (1.6-2.3); Non-African American GFR(CKD) >90 (>60 ml/min/1.73 sqM); Potassium 4.8 mmol/L (3.5-5.1); Sodium 137 mmol/L (137-145); Total Bilirubin 0.9 mg/dL (0.2-1.3); Total Protein 7.2 g/dL (6.3-8.2)
[2020-08-07 07:43] VITALS: BP 140/98; PULSE 94; RESP 20; TEMP 97.6
[2020-08-07] MEDS ORDERED: DOBUTamine DRIP for NUC MED 500 MG in DEXTROSE/WATER 1 250ML.BAG IV PRN (07:48)
--- NOTE | 2020-08-07 08:21 | CONS ---
CONSULTATION Ms. Miner is a 30-year-old female with known history of hypertension, diabetes, morbid obesity, who presented with palpitation and chest discomfort that started the day before yesterday. Her symptoms were not associated with any other symptoms. She denies any dizziness or syncope. She has no peripheral edema. No clear PND or orthopnea. She has no prior cardiac history. She has been in sinus mechanism since her admission and there is no evidence of malignant tachyarrhythmia. The patient has no prior cardiac disease. Her activity level is limited. MEDICATION: Her medications include metformin 1 gram twice a day, lisinopril 10 mg daily, loratadine, iron, Augmentin. REVIEW OF SYSTEMS: RESPIRATORY SYSTEM: She has dyspnea on exertion, but no recent wheezing or cough. GI SYSTEM: No recent GI bleeding. No peptic ulcer disease. SYSTEM: No dysuria or hematuria. NERVOUS SYSTEM: No history of stroke or seizure. PHYSICAL EXAMINATION: She is a 30-year-old female, alert, oriented, in no apparent distress, morbidly obese. Blood pressure running in the one teens to 140s with the heart rate in the 90s. HEAD: Normocephalic. EYES: Sclerae anicteric. NECK: Good carotid upstroke. No bruit. LUNGS: Clear to auscultation. HEART: Regular rate and rhythm. S1, S2. No S3. No S4. No murmur or rub. ABDOMEN: Soft, obese, nontender. EXTREMITIES: No edema. Intact distal pulses. LAB DATA: Lab data revealed troponin less than 0.012 for 3 samples. BUN and creatinine 12 and 0.56, potassium 4.8. Hemoglobin of 15.1. EKG reveals sinus tachycardia with a normal axis and intervals, and poor R-wave progression. Chest x-ray is shows no acute infiltrate. IMPRESSION: 1. Chest discomfort atypical for ischemic heart disease probably noncardiac. 2. Palpitation but no evidence of arrhythmia with episode of sinus tachycardia. 3. Morbid obesity. 4. Hypertension. 5. Diabetes mellitus. RECOMMENDATION: I reviewed the results of her echocardiogram, it showed a preserved systolic function. I will obtain a stress dobutamine echocardiogram. If there is no evidence of inducible ischemia, then no further cardiac workup will be needed. Thank you for this consult. We will follow with you. MMODL / IJN: [id number] /
[2020-08-07] MEDS ORDERED: LORATADINE 10 MG TAB PO SCH (09:00)
[2020-08-07] MEDS ORDERED: AMMONIUM LACTATE 12% LOTION 225 GM BTL TOPICAL SCH (09:00)
[2020-08-07] MEDS ORDERED: FERROUS SULFATE 325 MG TAB PO SCH (09:00)
[2020-08-07] MEDS ORDERED: FLUTICASONE 50MCG/SPRAY NASAL 16GM EA NOSTRIL SCH (09:00)
[2020-08-07] MEDS ORDERED: [UNRECOGNIZED DRUG - OTHER] PO SCH (09:00)
[2020-08-07] MEDS ORDERED: PANTOPRAZOLE 40 MG/10 ML VIAL IV SCH (09:00)
[2020-08-07] MEDS ORDERED: NON FORMULARY DRUG (Omega-3 Fatty Acids/Fish Oil [Fish Oil 1,000 Mg Softgel] 1 EACH Capsul PO SCH (09:00)
[2020-08-07] MEDS ORDERED: KETOCONAZOLE 2% SHAMPOO 1 APPLIC/ML TOPICAL SCH (09:00)
[2020-08-07] MEDS ORDERED: CHOLECALCIFEROL 25 MCG (1000 IU) TABLET PO SCH (09:00)
[2020-08-07] MEDS ORDERED: lisinopriL 10 MG TAB PO SCH (09:00)
[2020-08-07] MEDS: AMOXIC-POT CLAV 875-125MG 1 EACH TAB PO SCH (11:23)
[2020-08-07] MEDS: metFORMIN 500 MG TAB PO SCH (11:24)
[2020-08-07 11:26] LABS: Glucose,Whole Blood 150 mg/dL (75-99)
--- NOTE | 2020-08-07 12:58 | ECHOS ---
STRESS ECHOCARDIOGRAM LUMASON: N/A Vial INDICATIONS: Chest pain MEDICATIONS: BASELINE HEART RATE: 102 BASELINE BLOOD PRESSURE: 159/86 MAXIMUM HEART RATE: 162 MAXIMUM BLOOD PRESSURE: 144/96 85% MPHR: 161 100% MPHR: 189 METS: N/A MAXIMUM STAGE REACHED: 3 TOTAL EXERCISE TIME: 7:30 CLINICAL INFORMATION: Baseline rhythm is sinus mechanism, rate of 102, normal axis and intervals, poor R progression. Baseline blood pressure 159/86 mmHg. Patient received infusion of dobutamine per protocol, peak rate 162 beats per minute which is equal to 85% maximum predicted heart rate. Peak blood pressure 144/96 mmHg. Electrocardiograph monitoring revealed no evidence of diagnostic ischemic ST deviation. Baseline echocardiogram revealed normal wall motion. At peak infusion, there was normal wall motion augmentation with no hypokinesis or dyskinesis. CONCLUSION: 1. Normal electrocardiographic response to dobutamine infusion. 2. Normal stress echocardiogram with no evidence of stress-induced ischemia. MMODL / IJN: [id number] /
--- NOTE | 2020-08-07 18:28 | P.DS ---
Providers Date of admission: 08/06/20 14:40 Expected date of discharge: 08/07/20 Attending physician: Jaswinder Rivera Consults: 08/06/20 14:41 Consult Physician Routine Consulting Provider: Eagle Larsen Consult Reason/Comments: CP Rule out Do you want consulting provider notified?: Yes Primary care physician: Jaswinder Rivera Hospital Course: 30-year-old female presented to the emergency department with midsternal chest discomfort with associated symptoms of shortness of breath and generalized weakness for 2 day duration. Patient has significant medical history of diabetes mellitus type 2 [id number]-[id number], hyperlipidemia, hypertension, iron deficiency anemia, and severely morbidly obesity. Patient had extensive diagnostic workup in emergency department revealing unremarkable labs echocardiogram and dobutamine stress echo normal patient during hospital stay denied chest pain/shortness of breath/dizziness or nausea. Patient tolerated hospital stay well. Patient to follow-up with our services in 1-2 days .patient to follow-up with cardiology was 1-2 weeks Assessment: Atypical chest pain Hypertension Diabetes mellitus type 2 [id number]-aqmypacij Iron deficiency anemia Morbid obesity Health Concerns: Morbid obesity Pertinent Studies: Echocardiogram Beating main stress echono changes normal dobutamine stress echo Procedures: No procedures performed Patient Condition at Discharge: Stable Plan - Discharge Summary Discharge Rx Participant: No New Discharge Prescriptions: Continue Ferrous Sulfate [Iron (65 MG Elemental)] 325 mg PO DAILY metFORMIN HCL 1,000 mg PO BID [place]-3 Fatty Acids/Fish Oil [Fish Oil 1,000 mg Softgel] 1 cap PO DAILY lisinopriL [Zestril] 10 mg PO DAILY Cholecalciferol (Vitamin D3) [Vitamin D3 (5000 Iu)] 125 mcg PO DAILY Loratadine [Claritin] 10 mg PO DAILY Ketoconazole [Nizoral A-D] 1 applic TOPICAL DAILY Fluticasone Nasal [place] [Flonase Nasal [place]] 1 spr EA NOSTRIL DAILY Amoxic-Pot Clav 875-125Mg [Augmentin 875-125] 1 tab PO Q12HR Ammonium Lactate Lotion [Lac-Hydrin 12% Lotion] 1 applic TOPICAL DAILY [place] 1 tab PO DAILY Discharge Medication List Ferrous Sulfate [Iron (65 MG Elemental)] 325 mg PO DAILY 09/28/18 [History] [place]-3 Fatty Acids/Fish Oil [Fish Oil 1,000 mg Softgel] 1 cap PO DAILY 09/28/18 [History] lisinopriL [Zestril] 10 mg PO DAILY 09/28/18 [History] metFORMIN HCL 1,000 mg PO BID 09/28/18 [History] Ammonium Lactate Lotion [Lac-Hydrin 12% Lotion] 1 applic TOPICAL DAILY 08/06/20 [History] Amoxic-Pot Clav 875-125Mg [Augmentin 875-125] 1 tab PO Q12HR 08/06/20 [History] Cholecalciferol (Vitamin D3) [Vitamin D3 (5000 Iu)] 125 mcg PO DAILY 08/06/20 [History] Fluticasone Nasal [place] [Flonase Nasal [place]] 1 spr EA NOSTRIL DAILY 08/06/20 [History] Ketoconazole [Nizoral A-D] 1 applic TOPICAL DAILY 08/06/20 [History] [place] 1 tab PO DAILY 08/06/20 [History] Loratadine [Claritin] 10 mg PO DAILY 08/06/20 [History] Follow up Appointment(s)/Referral(s): Jaswinder Rivera MD [Primary Care Provider] - 08/10/20 1:30 pm (with Nell) Andre Ontiveros MD [STAFF PHYSICIAN] - 2 Weeks (Cardiology to call with appointment time) Patient Instructions/Handouts: Chest Pain (DC), Heart Healthy Diet (DC) Discharge Disposition: HOME SELF-CARE
== END 2020-08-07 13:58 | disposition home or self-care (01) ==
LOC: EC 11:49 → 6NMEDSUR 14:40
PROVIDERS: ADMIT Family Medicine; ATTEND Family Medicine
DX: R07.89 Other chest pain (principal); R00.2 Palpitations; I10 Essential (primary) hypertension; E11.9 Type 2 diabetes mellitus without complications; D50.9 Iron deficiency anemia, unspecified; D72.829 Elevated white blood cell count, unspecified; R06.02 Shortness of breath; R53.1 Weakness; E78.5 Hyperlipidemia, unspecified; R00.0 Tachycardia, unspecified; E66.01 Morbid (severe) obesity due to excess calories; Z68.44 Body mass index [BMI] 60.0-69.9, adult; Z79.84 Long term (current) use of oral hypoglycemic drugs; Z79.899 Other long term (current) drug therapy; Z87.442 Personal history of urinary calculi; Z90.49 Acquired absence of other specified parts of digestive tract; Z82.49 Family history of ischemic heart disease and other diseases of the circulatory system
CPT/HCPCS: 96376; 93005 ×2; 96361; 96374; 99285; 36415; 93306; 93351; 85379; 80053 ×2; 83690; 83735 ×2; 84484; 85025 ×2; 85610; 85730; 81001; 81025; 87635; 71046; G0378 ×2; J1250; C9113 ×2; Q9950

== ENCOUNTER 2020-08-08 17:17 | Emergency (ER) | payer OTHER ==
[2020-08-08] MEDS ORDERED: SODIUM CHLORIDE 0.9% 1,000 ML IV STA (17:52)
--- NOTE | 2020-08-08 18:00 | ED ---
General Adult HPI - General Source: patient Mode of arrival: ambulatory Limitations: no limitations <Nomi Garcia - Last Filed: 08/08/20 20:24> <Bhavya Rojas - Last Filed: 08/10/20 21:49> - General Chief complaint: Abdominal Pain Stated complaint: Back pain Time Seen by Provider: 08/08/20 17:32 - History of Present Illness Initial comments: 30-year-old female presents to the emergency room for a chief complaint of right-sided back pain radiating to the abdomen. This started a few hours prior to arrival. Patient does admit to 2 episodes of vomiting. Patient also reports she has had diarrhea for the past few days. She denies fevers or chills. Patient does have a history of cholecystectomy. She also has a history of kidney stones. She reports that she did have stones removed from the right side however they were not able to get all of them.Patient has no other complaints at this time including shortness of breath, chest pain, headache, or visual changes. (Nomi Garcia) - Related Data Home Medications Medication Instructions Recorded Confirmed Ferrous Sulfate [Iron (65 MG 325 mg PO DAILY 09/28/18 08/08/20 Elemental)] [place]-3 Fatty Acids/Fish Oil [Fish 1 cap PO DAILY 09/28/18 08/08/20 Oil 1,000 mg Softgel] lisinopriL [Zestril] 10 mg PO DAILY 09/28/18 08/08/20 metFORMIN HCL 1,000 mg PO BID 09/28/18 08/08/20 Ammonium Lactate Lotion 1 applic TOPICAL DAILY 08/06/20 08/08/20 [Lac-Hydrin 12% Lotion] Amoxic-Pot Clav 875-125Mg 1 tab PO Q12HR 08/06/20 08/08/20 [Augmentin 875-125] Cholecalciferol (Vitamin D3) 125 mcg PO DAILY 08/06/20 08/08/20 [Vitamin D3 (5000 Iu)] Fluticasone Nasal [place] [Flonase 1 spr EA NOSTRIL DAILY 08/06/20 08/08/20 Nasal [place]] Ketoconazole [Nizoral A-D] 1 applic TOPICAL DAILY 08/06/20 08/08/20 [place] 1 tab PO DAILY 08/06/20 08/08/20 Loratadine [Claritin] 10 mg PO DAILY 08/06/20 08/08/20 Previous Rx's Medication Instructions Recorded Cephalexin [Keflex] 500 mg PO Q6HR 10 Days #40 cap 08/08/20 Ibuprofen [Motrin] 600 mg PO Q8HR PRN #20 tab 08/08/20 Ondansetron [Zofran ODT] 4 mg PO Q8HR PRN #15 tab 08/08/20 Tamsulosin [Flomax] 0.4 mg PO DAILY #14 cap 08/08/20 Allergies Allergy/AdvReac Type Severity Reaction Status Date / Time No Known Allergies Allergy Verified 08/08/20 19:10 Review of Systems ROS Other: All systems not noted in ROS Statement are negative. <Nomi Garcia P - Last Filed: 08/08/20 20:24> ROS Other: All systems not noted in ROS Statement are negative. <Bhavya Rojas - Last Filed: 08/10/20 21:49> ROS Statement: Those systems with pertinent positive or pertinent negative responses have been documented in the HPI. Past Medical History Past Medical History: Blood Disorder, Diabetes Mellitus, Hypertension Additional Past Medical History / Comment(s): IRON DEFICIENCY ANEMIA. History of Any Multi-Drug Resistant Organisms: None Reported Past Surgical History: No Surgical Hx Reported Additional Past Surgical History / Comment(s): KIDNEY STONE REMOVAL FROM RIGHT URETER. Past Anesthesia/Blood Transfusion Reactions: No Reported Reaction Past Psychological History: No Psychological Hx Reported Smoking Status: Never smoker Past Alcohol Use History: Rare Past Drug Use History: None Reported - Past Family History Mother Family Medical History: No Reported History Father Family Medical History: No Reported History <Nomi Garcia P - Last Filed: 08/08/20 20:24> General Exam Limitations: no limitations General appearance: alert Head exam: Present: atraumatic, normocephalic, normal inspection Eye exam: Present: normal appearance, PERRL, EOMI. Absent: scleral icterus, conjunctival injection ENT exam: Present: normal exam, mucous membranes moist Neck exam: Present: normal inspection, full ROM. Absent: tenderness Respiratory exam: Present: normal lung sounds bilaterally. Absent: respiratory distress, wheezes Cardiovascular Exam: Present: regular rate, normal rhythm, normal heart sounds GI/Abdominal exam: Present: soft, normal bowel sounds. Absent: distended, tenderness (No significant right lower quadrant abdominal pain), guarding Back exam: Absent: CVA tenderness (R), CVA tenderness (L) <Nomi Garcia - Last Filed: 08/08/20 20:24> Course Vital Signs 08/08/20 08/08/20 08/08/20 17:19 18:22 19:10 Temperature 99.2 F Pulse Rate 123 H 111 H 101 H Respiratory 20 18 20 Rate Blood Pressure 174/101 135/103 156/110 O2 Sat by Pulse 99 99 96 Oximetry 08/08/20 21:07 Temperature 99.4 F Pulse Rate 102 H Respiratory 20 Rate Blood Pressure 134/98 O2 Sat by Pulse 96 Oximetry Medical Decision Making - Lab Data Result diagrams: 08/08/20 18:02 08/08/20 18:02 <Nomi Garcia - Last Filed: 08/08/20 20:24> - Lab Data Result diagrams: 08/08/20 18:02 08/08/20 18:02 <Bhavya Rojas - Last Filed: 08/10/20 21:49> - Medical Decision Making Patient initially tachycardic however on review of patient's previous vitals this is not abnormal for her. Physical exam reveals a nontender abdomen. No significant CVA tenderness. Pelvic exam unremarkable. No cervical motion tenderness. CBC does reveal leukocytosis of 17.3. Patient always does have leukocytosis. This could be reactive to the vomiting she experienced earlier. CMP does reveal hyperglycemia which is chronic. Lactic acidosis of 2.5 likely secondary to dehydration from vomiting. Urinalysis does show large blood, no evidence of infection. CT does reveal a 5 mm obstructing right proximal ureter calculus with moderate hydronephrosis. This is likely the cause of patient's pain. Given the leukocytosis we will start patient on Keflex. Patient will be referred to urology. However I did discuss strict return parameters given white count. if she does develop worsening symptoms she will return to the emergency room. I discussed this case with attending Dr. Rojas who agrees with this assessment and treatment plan. (Nomi Garcia) I was available for consultation in the emergency department. The history and physical exam were done by the midlevel provider. I was consulted for this patients care. I reviewed the case with the midlevel provider and based on their presentation of the patient, I agree with the assessment, medical decision making and plan of care as documented. Chart was dictated using [employer] dictation software. Attempts were made to correct any dictation errors however some typographical errors may persist. Patient was seen during a national state of emergency due to the Covid-19 pandemic. (Bhavya Rojas) - Lab Data Lab Results 08/08/20 08/08/20 08/08/20 Range/Units 18:00 18:02 18:02 WBC 17.3 H (3.8-10.6) k/uL RBC 5.22 (3.80-5.40) m/uL Hgb 15.1 (11.4-16.0) gm/dL Hct 44.1 (34.0-46.0) % MCV 84.6 (80.0-100.0) fL MCH 28.9 (25.0-35.0) pg MCHC 34.2 (31.0-37.0) g/dL RDW 12.9 (11.5-15.5) % Plt Count 325 (150-450) k/uL MPV 7.5 Neutrophils % 74 % Lymphocytes % 18 % Monocytes % 4 % Eosinophils % 2 % Basophils % 0 % Neutrophils # 12.7 H (1.3-7.7) k/uL Lymphocytes # 3.2 (1.0-4.8) k/uL Monocytes # 0.7 (0-1.0) k/uL Eosinophils # 0.4 (0-0.7) k/uL Basophils # 0.1 (0-0.2) k/uL Sodium (137-145) mmol/L Potassium (3.5-5.1) mmol/L Chloride (98-107) mmol/L Carbon Dioxide (22-30) mmol/L Anion Gap mmol/L BUN (7-17) mg/dL Creatinine (0.52-1.04) mg/dL Est GFR (CKD-EPI)AfAm (>60 ml/min/1.73 sqM) Est GFR (CKD-EPI)NonAf (>60 ml/min/1.73 sqM) Glucose (74-99) mg/dL Lactic Ac Sepsis Rflx Plasma Lactic Acid Neville (0.7-2.0) mmol/L Calcium (8.4-10.2) mg/dL Total Bilirubin (0.2-1.3) mg/dL AST (14-36) U/L ALT (4-34) U/L Alkaline Phosphatase (38-126) U/L Total Protein (6.3-8.2) g/dL Albumin (3.5-5.0) g/dL Amylase (30-110) U/L Lipase (23-300) U/L Urine Color Light Yellow Urine Appearance Clear (Clear) Urine pH 6.0 (5.0-8.0) Ur Specific Velpen 1.005 (1.001-1.035) Urine Protein 1+ H (Negative) Urine Glucose (UA) Negative (Negative) Urine Ketones Negative (Negative) Urine Blood Large H (Negative) Urine Nitrite Negative (Negative) Urine Bilirubin Negative (Negative) Urine Urobilinogen <2.0 (<2.0) mg/dL Ur Leukocyte Esterase Negative (Negative) Urine RBC 10 H (0-5) /hpf Urine WBC 1 (0-5) /hpf Ur Squamous Epith Cells <1 (0-4) /hpf Urine Bacteria Rare H (None) /hpf Urine HCG, Qual Not Detected (Not Detectd) Coronavirus (PCR) (Not Detected) Trichomonas Ag (Rapid) (Negative) 08/08/20 08/08/20 08/08/20 Range/Units 18:02 18:02 18:43 WBC (3.8-10.6) k/uL RBC (3.80-5.40) m/uL Hgb (11.4-16.0) gm/dL Hct (34.0-46.0) % MCV (80.0-100.0) fL MCH (25.0-35.0) pg MCHC (31.0-37.0) g/dL RDW (11.5-15.5) % Plt Count (150-450) k/uL MPV Neutrophils % % Lymphocytes % % Monocytes % % Eosinophils % % Basophils % % Neutrophils # (1.3-7.7) k/uL Lymphocytes # (1.0-4.8) k/uL Monocytes # (0-1.0) k/uL Eosinophils # (0-0.7) k/uL Basophils # (0-0.2) k/uL Sodium 136 L (137-145) mmol/L Potassium 4.1 (3.5-5.1) mmol/L Chloride 102 (98-107) mmol/L Carbon Dioxide 23 (22-30) mmol/L Anion Gap 11 mmol/L BUN 13 (7-17) mg/dL Creatinine 0.71 (0.52-1.04) mg/dL Est GFR (CKD-EPI)AfAm >90 (>60 ml/min/1.73 sqM) Est GFR (CKD-EPI)NonAf >90 (>60 ml/min/1.73 sqM) Glucose 181 H (74-99) mg/dL Lactic Ac Sepsis Rflx Y Plasma Lactic Acid Neville 2.5 H* (0.7-2.0) mmol/L Calcium 10.0 (8.4-10.2) mg/dL Total Bilirubin 0.6 (0.2-1.3) mg/dL AST 39 H (14-36) U/L ALT 34 (4-34) U/L Alkaline Phosphatase 54 (38-126) U/L Total Protein 7.5 (6.3-8.2) g/dL Albumin 4.2 (3.5-5.0) g/dL Amylase 48 (30-110) U/L Lipase 94 (23-300) U/L Urine Color Urine Appearance (Clear) Urine pH (5.0-8.0) Ur Specific Velpen (1.001-1.035) Urine Protein (Negative) Urine Glucose (UA) (Negative) Urine Ketones (Negative) Urine Blood (Negative) Urine Nitrite (Negative) Urine Bilirubin (Negative) Urine Urobilinogen (<2.0) mg/dL Ur Leukocyte Esterase (Negative) Urine RBC (0-5) /hpf Urine WBC (0-5) /hpf Ur Squamous Epith Cells (0-4) /hpf Urine Bacteria (None) /hpf Urine HCG, Qual (Not Detectd) Coronavirus (PCR) (Not Detected) Trichomonas Ag (Rapid) (Negative) 08/08/20 08/08/20 Range/Units 20:30 20:30 WBC (3.8-10.6) k/uL RBC (3.80-5.40) m/uL Hgb (11.4-16.0) gm/dL Hct (34.0-46.0) % MCV (80.0-100.0) fL MCH (25.0-35.0) pg MCHC (31.0-37.0) g/dL RDW (11.5-15.5) % Plt Count (150-450) k/uL MPV Neutrophils % % Lymphocytes % % Monocytes % % Eosinophils % % Basophils % % Neutrophils # (1.3-7.7) k/uL Lymphocytes # (1.0-4.8) k/uL Monocytes # (0-1.0) k/uL Eosinophils # (0-0.7) k/uL Basophils # (0-0.2) k/uL Sodium (137-145) mmol/L Potassium (3.5-5.1) mmol/L Chloride (98-107) mmol/L Carbon Dioxide (22-30) mmol/L Anion Gap mmol/L BUN (7-17) mg/dL Creatinine (0.52-1.04) mg/dL Est GFR (CKD-EPI)AfAm (>60 ml/min/1.73 sqM) Est GFR (CKD-EPI)NonAf (>60 ml/min/1.73 sqM) Glucose (74-99) mg/dL Lactic Ac Sepsis Rflx Plasma Lactic Acid Neville (0.7-2.0) mmol/L Calcium (8.4-10.2) mg/dL Total Bilirubin (0.2-1.3) mg/dL AST (14-36) U/L ALT (4-34) U/L Alkaline Phosphatase (38-126) U/L Total Protein (6.3-8.2) g/dL Albumin (3.5-5.0) g/dL Amylase (30-110) U/L Lipase (23-300) U/L Urine Color Urine Appearance (Clear) Urine pH (5.0-8.0) Ur Specific Velpen (1.001-1.035) Urine Protein (Negative) Urine Glucose (UA) (Negative) Urine Ketones (Negative) Urine Blood (Negative) Urine Nitrite (Negative) Urine Bilirubin (Negative) Urine Urobilinogen (<2.0) mg/dL Ur Leukocyte Esterase (Negative) Urine RBC (0-5) /hpf Urine WBC (0-5) /hpf Ur Squamous Epith Cells (0-4) /hpf Urine Bacteria (None) /hpf Urine HCG, Qual (Not Detectd) Coronavirus (PCR) Not Detected (Not Detected) Trichomonas Ag (Rapid) Negative (Negative) Disposition Is patient prescribed a controlled substance at d/c from ED?: No Time of Disposition: 20:29 <Nomi Garcia - Last Filed: 08/08/20 20:24> <Bhavya Rojas - Last Filed: 08/10/20 21:49> Clinical Impression: Ureterolithiasis, Leukocytosis, Abdominal pain Disposition: HOME SELF-CARE Condition: Good Instructions (If sedation given, give patient instructions): Kidney Stones (ED) Additional Instructions: Please take Motrin for pain. If pain is severe take Tylenol 3. Take other medications as directed. You cannot drive or operate machinery while taking Tylenol 3. Follow up with urology. If you develop worsening symptoms such as worsening pain or fevers return to the emergency room. Prescriptions: Tamsulosin [Flomax] 0.4 mg PO DAILY #14 cap Cephalexin [Keflex] 500 mg PO Q6HR 10 Days #40 cap Ibuprofen [Motrin] 600 mg PO Q8HR PRN #20 tab PRN Reason: Pain Ondansetron [Zofran ODT] 4 mg PO Q8HR PRN #15 tab PRN Reason: Nausea Referrals: Jaswinder Rivera MD [Primary Care Provider] - 1-2 days Chao Lind MD [STAFF PHYSICIAN] - 1-2 days
[2020-08-08 18:06] LABS: Basophils # (A) 0.1 k/uL (0-0.2); Basophils % (A) 0 %; Eosinophils # (A) 0.4 k/uL (0-0.7); Eosinophils % (A) 2 %; HCT 44.1 % (34.0-46.0); HGB 15.1 gm/dL (11.4-16.0); Lymphocytes # (A) 3.2 k/uL (1.0-4.8); Lymphocytes % (A) 18 %; MCH 28.9 pg (25.0-35.0); MCHC 34.2 g/dL (31.0-37.0); MCV 84.6 fL (80.0-100.0); Mean Platelet Volume 7.5; Monocytes # (A) 0.7 k/uL (0-1.0); Monocytes % (A) 4 %; Neutrophils # (A) 12.7 k/uL (1.3-7.7); Neutrophils % (A) 74 %; Platelet Count 325 k/uL (150-450); RBC 5.22 m/uL (3.80-5.40); RDW 12.9 % (11.5-15.5); WBC 17.3 k/uL (3.8-10.6)
[2020-08-08 18:17] LABS: ALT 34 U/L (4-34); AST 39 U/L (14-36); African American GFR (CKD) >90 (>60 ml/min/1.73 sqM); Albumin 4.2 g/dL (3.5-5.0); Alkaline Phosphatase 54 U/L (38-126); Amylase 48 U/L (30-110); Anion Gap 11 mmol/L; Blood Urea Nitrogen 13 mg/dL (7-17); Carbon Dioxide 23 mmol/L (22-30); Chloride 102 mmol/L (98-107); Glucose 181 mg/dL (74-99); Lipase 94 U/L (23-300); Non-African American GFR(CKD) >90 (>60 ml/min/1.73 sqM); Potassium 4.1 mmol/L (3.5-5.1); Sodium 136 mmol/L (137-145); Total Bilirubin 0.6 mg/dL (0.2-1.3); Total Protein 7.5 g/dL (6.3-8.2)
[2020-08-08 18:37] LABS: Appearance,Urine Clear (Clear); Bacteria,Urine Rare /hpf; Bilirubin,Urine Negative (Negative); Blood,Urine Large (Negative); Color,Urine Light Yellow; Glucose,Urine (UA) Negative (Negative); Ketones,Urine Negative (Negative); Leukocyte Esterase,Urine Negative (Negative); Nitrite,Urine Negative (Negative); Protein,Urine 1+ (Negative); RBC,Urine 10 /hpf (0-5); Specific Gravity,Urine 1.005 (1.001-1.035); Squamous Epithelial Cell,Urine <1 /hpf (0-4); Urobilinogen,Urine <2.0 mg/dL (<2.0); WBC,Urine 1 /hpf (0-5)
--- NOTE | 2020-08-08 18:50 | CT ---
EXAMINATION TYPE: CT abdomen pelvis w con DATE OF EXAM: 08/08/2020 COMPARISON: 07/20/2019. HISTORY: Lower back pain and vomiting. CT DLP: [id number] mGycm Automated exposure control for dose reduction was used. TECHNIQUE: Helical acquisition of images was performed from the lung bases through the pelvis. CONTRAST: Performed without Oral Contrast and with IV Contrast, patient injected with 100ml mL of Isovue 300. FINDINGS: LUNG BASES: No significant abnormality is appreciated. LIVER/GB: No acute abnormality is appreciated. Diffuse hepatic steatosis and cholecystectomy seen. PANCREAS: No significant abnormality is seen. SPLEEN: No significant abnormality is seen. ADRENALS: No significant abnormality is seen. KIDNEYS: 5 mm obstructing calculus in the right proximal ureter with moderate hydronephrosis. Additio nal large nonobstructing right renal calculus measuring up to 11 mm. No left hydronephrosis or nephro lithiasis. FREE AIR: No free air is visualized. RETROPERITONEAL ADENOPATHY: None visualized REPRODUCTIVE ORGANS: No significant abnormality is seen URINARY BLADDER: No significant abnormality is seen. PELVIC ADENOPATHY: None visualized. OSSEOUS STRUCTURES: No significant abnormality is seen. BOWEL: No significant abnormality is seen. OTHER: None. IMPRESSION: 5 MM OBSTRUCTING RIGHT PROXIMAL URETER CALCULUS WITH MODERATE HYDRONEPHROSIS. Overall decreased burden of right nephrolithiasis, compared to the prior study. Remnant large nonobst ructing calculus seen.
[2020-08-08] MEDS ORDERED: KETOROLAC 15 MG/ML 1 ML VIAL IVP STA (19:07)
[2020-08-08] MEDS ORDERED: CEPHALEXIN 500MG STARTER PACK 4 CAP BTL PO STA (20:30)
[2020-08-08] MEDS ORDERED: ACET/COD 300 MG/30 MG STARTER PACK 6 TAB BTL PO STA (20:31)
[2020-08-08 21:01] VITALS: RESP 20
[2020-08-08 21:08] VITALS: BP 134/98; PULSE 102; TEMP 99.4
[2020-08-11 13:30] LABS: C. trachomatis,PCR Negative (Neg,Equiv); Chlamydia trachomatis Source Vagina; N. gonorrhoeae,PCR Negative (Neg,Equiv); Neisseria Source Vagina
== END 2020-08-08 21:08 | disposition home or self-care (01) ==
LOC: EC 17:17
DX: N13.2 Hydronephrosis with renal and ureteral calculous obstruction (principal); E11.65 Type 2 diabetes mellitus with hyperglycemia; D72.829 Elevated white blood cell count, unspecified; I10 Essential (primary) hypertension; Z20.822 Contact with and (suspected) exposure to COVID-19; Z79.84 Long term (current) use of oral hypoglycemic drugs; Z79.899 Other long term (current) drug therapy; Z90.49 Acquired absence of other specified parts of digestive tract
CPT/HCPCS: 99284; 96374; 96361; 36415; 80053; 82150; 83605; 83690; 85025; 81001; 81025; 87808; 87491; 87591; 87070; 87086; 74177; U0003; U0005; J1885; Q9967

== ENCOUNTER → 2020-09-23 | Outpatient (CLI) | payer OTHER ==
--- NOTE | 2020-09-23 11:40 | SFUN ---
SLEEP CENTER FOLLOW UP NOTE DATE OF SERVICE: 09/23/2020 This 30-year-old lady has been followed in Sleep Center for treatment of obstructive sleep apnea-hypopnea syndrome. Recently, patient had polysomnogram which showed the patient has moderate obstructive sleep apnea-hypopnea syndrome, then she had CPAP titration and her respiration was normalized. Today is her first visit after she was started on treatment with CPAP. The patient feels better with the CPAP, sleeps better and feels better during the day. [place] Sleepiness Scale today is 4, which is absolutely normal. I checked patient's CPAP unit. CPAP pressure is 10 cm of water. Usage is 100% of the time more than 4 hours with average usage 8.3 hours per night. Leak is 8 L/minute. Apnea-hypopnea index is 0, which is absolutely perfect. MEDICATIONS: Metformin 1000 mg twice a day, lisinopril 10 mg once a day, ferrous sulfate 325 mg once a day, aspirin 81 mg once a day, vitamin D3 supplement. PHYSICAL EXAMINATION: GENERAL: Patient in no distress. VITAL SIGNS: BP 146/88, HR 90, RR 14, oxygen saturation at room air 99%, weight 411.2 pounds, temperature 98.5. HEENT: PERRLA, EOMI, evaluation of oropharynx low position of soft palate, Mallampati 3. NECK: Wide neck 20 inches in circumference. LUNGS: Clear to percussion and to auscultation. Good air exchange. No wheezing or rhonchi. HEART: S1, S2 regular. No murmurs, gallops, or rubs. ABDOMEN: Obese. EXTREMITIES: No clubbing or cyanosis. [employer]: Awake, alert, and oriented X3. Cranial nerves 2 to 7 intact. There is no fasciculation or atrophy. noted. No focal deficits observed. IMPRESSION: 1. Obstructive sleep apnea-hypopnea syndrome. Patient demonstrated 100% compliance with treatment, benefitting from treatment. 2. Hypertension. 3. Diabetes mellitus. 4. History of iron deficiency. 5. Status post cholecystectomy. 6. History of kidney stones, status post surgical treatment. PLAN: 1. Patient will continue to use PAP equipment every night for the whole night. 2. Sleep hygiene with regular time in bed for at least 7-1/2 to 8 hours. 3. Precautions related to driving. No driving if feeling sleepiness. 4. I will maintain all necessary prescription for PAP supplies including mask, tube, filters. 5. Watching weight. 6. Follow-up visit in 6 months or earlier if patient has any problems. Thank you very much for allowing me to participate in management of your patient. Sincerely, Chan Gregorio MD, PhD, FAASM Diplomat of [place] [employer] [place] [employer] Vice President [employer] of [facility] [place] MMODL / JONATHANN: [phone] /
== END | disposition home or self-care (01) ==
LOC: SLEEP 10:44
PROVIDERS: ATTEND Internal Medicine
DX: G47.33 Obstructive sleep apnea (adult) (pediatric) (principal); I10 Essential (primary) hypertension; E11.9 Type 2 diabetes mellitus without complications; Z99.89 Dependence on other enabling machines and devices; Z79.84 Long term (current) use of oral hypoglycemic drugs; Z79.899 Other long term (current) drug therapy; Z90.49 Acquired absence of other specified parts of digestive tract; Z87.442 Personal history of urinary calculi; Z86.2 Personal history of diseases of the blood and blood-forming organs and certain disorders involving the immune mechanism; Z98.890 Other specified postprocedural states

== ENCOUNTER 2020-12-02 09:04 | Emergency (ER) | payer OTHER ==
[2020-12-02 09:08] VITALS: RESP 18
[2020-12-02] MEDS ORDERED: MORPHINE SULFATE 4 MG/ML SYRINGE IVP STA (09:31)
[2020-12-02] MEDS ORDERED: ONDANSETRON 4 MG/2 ML VIAL IVP STA (09:31)
[2020-12-02] MEDS ORDERED: SODIUM CHLORIDE 0.9% 1,000 ML IV STA (09:31)
--- NOTE | 2020-12-02 09:51 | ED ---
General Adult HPI - General Chief complaint: Abdominal Pain Stated complaint: Abd pain, NVD Time Seen by Provider: 12/02/20 09:13 Source: patient, RN notes reviewed Mode of arrival: ambulatory Limitations: no limitations - History of Present Illness Initial comments: 30-year-old female with a past medical history of diabetes mellitus, hypertension, cholecystectomy in 2019, kidney stone removal presents to the emergency room for right upper quadrant pain. Patient reports that she has had upper abdominal pain on the right side for the past 3 days. States she has also had nausea with this and did vomit once today. Patient also reports episodes of diarrhea throughout the past few days. Patient denies fevers but does admit to feeling warm at times.Patient has no other complaints at this time including shortness of breath, chest pain, headache, or visual changes. - Related Data Home Medications Medication Instructions Recorded Confirmed Ferrous Sulfate [Iron (65 MG 325 mg PO DAILY 09/28/18 12/02/20 Elemental)] [place]-3 Fatty Acids/Fish Oil [Fish 1 cap PO DAILY 09/28/18 12/02/20 Oil 1,000 mg Softgel] lisinopriL [Zestril] 10 mg PO DAILY 09/28/18 12/02/20 metFORMIN HCL 1,000 mg PO BID 09/28/18 12/02/20 Ammonium Lactate Lotion 1 applic TOPICAL HS 08/06/20 12/02/20 [Lac-Hydrin 12% Lotion] Cholecalciferol (Vitamin D3) 125 mcg PO DAILY 08/06/20 12/02/20 [Vitamin D3 (5000 Iu)] Fluticasone Nasal [place] [Flonase 1 spr EA NOSTRIL BID 08/06/20 12/02/20 Nasal Startex] Elma 1 tab PO HS 08/06/20 12/02/20 Loratadine [Claritin] 10 mg PO DAILY 08/06/20 12/02/20 Aspirin EC [Ecotrin Low Dose] 81 mg PO DAILY 12/02/20 12/02/20 Cider Vinegar [Apple Cider Vinegar] 300 mg PO DAILY 12/02/20 12/02/20 Empagliflozin [Jardiance] 10 mg PO DAILY 12/02/20 12/02/20 Previous Rx's Medication Instructions Recorded Ondansetron [Zofran ODT] 4 mg PO Q8HR PRN #15 tab 08/08/20 Ondansetron [Zofran ODT] 4 mg PO Q8HR PRN #15 tab 12/02/20 Allergies Allergy/AdvReac Type Severity Reaction Status Date / Time No Known Allergies Allergy Verified 12/02/20 10:20 Review of Systems ROS Statement: Those systems with pertinent positive or pertinent negative responses have been documented in the HPI. ROS Other: All systems not noted in ROS Statement are negative. Past Medical History Past Medical History: Blood Disorder, Diabetes Mellitus, Hypertension Additional Past Medical History / Comment(s): IRON DEFICIENCY ANEMIA. History of Any Multi-Drug Resistant Organisms: None Reported Past Surgical History: Cholecystectomy Additional Past Surgical History / Comment(s): KIDNEY STONE REMOVAL FROM RIGHT URETER. Past Anesthesia/Blood Transfusion Reactions: No Reported Reaction Past Psychological History: No Psychological Hx Reported Smoking Status: Never smoker Past Alcohol Use History: Rare Past Drug Use History: None Reported - Past Family History Mother Family Medical History: No Reported History Father Family Medical History: No Reported History General Exam Limitations: no limitations General appearance: alert, in no apparent distress Head exam: Present: atraumatic, normocephalic, normal inspection Eye exam: Present: normal appearance, PERRL, EOMI. Absent: scleral icterus, conjunctival injection, periorbital swelling ENT exam: Present: normal exam, mucous membranes moist Neck exam: Present: normal inspection, full ROM. Absent: tenderness, meningismus, lymphadenopathy Respiratory exam: Present: normal lung sounds bilaterally. Absent: respiratory distress, wheezes, rales, rhonchi, stridor Cardiovascular Exam: Present: regular rate, normal rhythm, normal heart sounds. Absent: systolic murmur, diastolic murmur, rubs, gallop, clicks GI/Abdominal exam: Present: soft, tenderness (Right upper and lower abdominal tenderness.), normal bowel sounds. Absent: distended, guarding, rebound, rigid Course Vital Signs 12/02/20 12/02/20 09:05 11:35 Temperature 98 F 99.0 F Pulse Rate 120 H 106 H Respiratory 18 18 Rate Blood Pressure 135/89 124/91 O2 Sat by Pulse 95 96 Oximetry Medical Decision Making - Medical Decision Making Vitals are stable. Patient does have some mild right lower quadrant tenderness. CBC does show a slight leukocytosis, likely related to vomiting. CMP unremarkable. CT abdomen and pelvis shows no bowel obstruction. No significant finding to account for patient's clinical symptoms. Patient was given pain medication and did have significant improvement. Patient may have a gastroenteritis given nausea vomiting and diarrhea. Recommend she drink plenty of fluids. We will give her Zofran for home. She will return here for any worsening symptoms. - Lab Data Result diagrams: 12/02/20 09:57 12/02/20 09:57 Lab Results 12/02/20 12/02/20 12/02/20 Range/Units 09:57 09:57 09:57 WBC 14.0 H (3.8-10.6) k/uL RBC 5.20 (3.80-5.40) m/uL Hgb 14.9 (11.4-16.0) gm/dL Hct 44.0 (34.0-46.0) % MCV 84.7 (80.0-100.0) fL MCH 28.6 (25.0-35.0) pg MCHC 33.7 (31.0-37.0) g/dL RDW 13.0 (11.5-15.5) % Plt Count 394 (150-450) k/uL MPV 7.4 Neutrophils % 75 % Lymphocytes % 17 % Monocytes % 5 % Eosinophils % 2 % Basophils % 0 % Neutrophils # 10.5 H (1.3-7.7) k/uL Lymphocytes # 2.4 (1.0-4.8) k/uL Monocytes # 0.6 (0-1.0) k/uL Eosinophils # 0.2 (0-0.7) k/uL Basophils # 0.1 (0-0.2) k/uL Sodium 137 (137-145) mmol/L Potassium 4.6 (3.5-5.1) mmol/L Chloride 102 (98-107) mmol/L Carbon Dioxide 22 (22-30) mmol/L Anion Gap 13 mmol/L BUN 8 (7-17) mg/dL Creatinine 0.59 (0.52-1.04) mg/dL Est GFR (CKD-EPI)AfAm >90 (>60 ml/min/1.73 sqM) Est GFR (CKD-EPI)NonAf >90 (>60 ml/min/1.73 sqM) Glucose 175 H (74-99) mg/dL Calcium 9.9 (8.4-10.2) mg/dL Total Bilirubin 0.7 (0.2-1.3) mg/dL AST 28 (14-36) U/L ALT 23 (4-34) U/L Alkaline Phosphatase 61 (38-126) U/L Total Protein 7.3 (6.3-8.2) g/dL Albumin 4.3 (3.5-5.0) g/dL Amylase 51 (30-110) U/L Lipase 78 (23-300) U/L Urine Color Light Yellow Urine Appearance Clear (Clear) Urine pH 5.5 (5.0-8.0) Ur Specific [place] 1.009 (1.001-1.035) Urine Protein 1+ H (Negative) Urine Glucose (UA) 4+ H (Negative) Urine Ketones 1+ H (Negative) Urine Blood Trace H (Negative) Urine Nitrite Negative (Negative) Urine Bilirubin Negative (Negative) Urine Urobilinogen <2.0 (<2.0) mg/dL Ur Leukocyte Esterase Negative (Negative) Urine RBC 1 (0-5) /hpf Urine WBC 5 (0-5) /hpf Ur Squamous Epith Cells 1 (0-4) /hpf Urine HCG, Qual (Not Detectd) 12/02/20 Range/Units 09:57 WBC (3.8-10.6) k/uL RBC (3.80-5.40) m/uL Hgb (11.4-16.0) gm/dL Hct (34.0-46.0) % MCV (80.0-100.0) fL MCH (25.0-35.0) pg MCHC (31.0-37.0) g/dL RDW (11.5-15.5) % Plt Count (150-450) k/uL MPV Neutrophils % % Lymphocytes % % Monocytes % % Eosinophils % % Basophils % % Neutrophils # (1.3-7.7) k/uL Lymphocytes # (1.0-4.8) k/uL Monocytes # (0-1.0) k/uL Eosinophils # (0-0.7) k/uL Basophils # (0-0.2) k/uL Sodium (137-145) mmol/L Potassium (3.5-5.1) mmol/L Chloride (98-107) mmol/L Carbon Dioxide (22-30) mmol/L Anion Gap mmol/L BUN (7-17) mg/dL Creatinine (0.52-1.04) mg/dL Est GFR (CKD-EPI)AfAm (>60 ml/min/1.73 sqM) Est GFR (CKD-EPI)NonAf (>60 ml/min/1.73 sqM) Glucose (74-99) mg/dL Calcium (8.4-10.2) mg/dL Total Bilirubin (0.2-1.3) mg/dL AST (14-36) U/L ALT (4-34) U/L Alkaline Phosphatase (38-126) U/L Total Protein (6.3-8.2) g/dL Albumin (3.5-5.0) g/dL Amylase (30-110) U/L Lipase (23-300) U/L Urine Color Urine Appearance (Clear) Urine pH (5.0-8.0) Ur Specific [place] (1.001-1.035) Urine Protein (Negative) Urine Glucose (UA) (Negative) Urine Ketones (Negative) Urine Blood (Negative) Urine Nitrite (Negative) Urine Bilirubin (Negative) Urine Urobilinogen (<2.0) mg/dL Ur Leukocyte Esterase (Negative) Urine RBC (0-5) /hpf Urine WBC (0-5) /hpf Ur Squamous Epith Cells (0-4) /hpf Urine HCG, Qual Not Detected (Not Detectd) Disposition Clinical Impression: Abdominal pain, Diarrhea Disposition: HOME SELF-CARE Condition: Good Instructions (If sedation given, give patient instructions): Abdominal Pain (ED) Additional Instructions: Please take medications as directed. Follow-up with your doctor. Return to the emergency room for any worsening symptoms. Prescriptions: Ondansetron [Zofran ODT] 4 mg PO Q8HR PRN #15 tab PRN Reason: Nausea Is patient prescribed a controlled substance at d/c from ED?: No Referrals: Jaswinder Rivera MD [Primary Care Provider] - 1-2 days Time of Disposition: 12:55
[2020-12-02 11:15] LABS: Basophils # (A) 0.1 k/uL (0-0.2); Basophils % (A) 0 %; Eosinophils # (A) 0.2 k/uL (0-0.7); Eosinophils % (A) 2 %; HGB 14.9 gm/dL (11.4-16.0); Lymphocytes # (A) 2.4 k/uL (1.0-4.8); Lymphocytes % (A) 17 %; MCH 28.6 pg (25.0-35.0); MCHC 33.7 g/dL (31.0-37.0); MCV 84.7 fL (80.0-100.0); Mean Platelet Volume 7.4; Monocytes # (A) 0.6 k/uL (0-1.0); Monocytes % (A) 5 %; Neutrophils # (A) 10.5 k/uL (1.3-7.7); Neutrophils % (A) 75 %; Platelet Count 394 k/uL (150-450)
[2020-12-02 11:23] LABS: Appearance,Urine Clear (Clear); Bilirubin,Urine Negative (Negative); Blood,Urine Trace (Negative); Color,Urine Light Yellow; Glucose,Urine (UA) 4+ (Negative); Ketones,Urine 1+ (Negative); Leukocyte Esterase,Urine Negative (Negative); Nitrite,Urine Negative (Negative); PH, Urine 5.5 (5.0-8.0); Protein,Urine 1+ (Negative); RBC,Urine 1 /hpf (0-5); Specific Gravity,Urine 1.009 (1.001-1.035); Squamous Epithelial Cell,Urine 1 /hpf (0-4); Urobilinogen,Urine <2.0 mg/dL (<2.0); WBC,Urine 5 /hpf (0-5)
[2020-12-02 11:30] LABS: ALT 23 U/L (4-34); AST 28 U/L (14-36); African American GFR (CKD) >90 (>60 ml/min/1.73 sqM); Albumin 4.3 g/dL (3.5-5.0); Alkaline Phosphatase 61 U/L (38-126); Amylase 51 U/L (30-110); Anion Gap 13 mmol/L; Blood Urea Nitrogen 8 mg/dL (7-17); Calcium 9.9 mg/dL (8.4-10.2); Carbon Dioxide 22 mmol/L (22-30); Chloride 102 mmol/L (98-107); Glucose 175 mg/dL (74-99); Lipase 78 U/L (23-300); Non-African American GFR(CKD) >90 (>60 ml/min/1.73 sqM); Potassium 4.6 mmol/L (3.5-5.1); Sodium 137 mmol/L (137-145); Total Bilirubin 0.7 mg/dL (0.2-1.3); Total Protein 7.3 g/dL (6.3-8.2)
--- NOTE | 2020-12-02 12:22 | CT ---
EXAMINATION TYPE: CT abdomen pelvis w con DATE OF EXAM: 12/02/2020 HISTORY: Right upper quadrant pain with nausea vomiting and diarrhea CT DLP: 4979mGycm Automated Exposure Control for Dose Reduction was Utilized. CONTRAST: CT scan of the abdomen and pelvis is performed without oral but with IV Contrast, patient injected wi th 100 mL of Isovue 300. COMPARISON: CT abdomen and pelvis August 08, 2020 FINDINGS: LUNG BASES: No significant abnormality is appreciated. LIVER/GB: Liver remains diffusely low dense consistent with diffuse fatty infiltration. Hepatomegaly redemonstrated. Cholecystectomy clips redemonstrated. PANCREAS: No significant abnormality is seen. SPLEEN: No significant abnormality is seen. ADRENALS: No significant abnormality is seen. KIDNEYS: Persistent nonobstructing 11 mm lower pole right renal calculus coronal image 65 and adjacen t 3 mm calculus sagittal image 53 anterior to this. There is additional 10 mm calculus just superior to this axial image 53 all redemonstrated. Current study shows symmetric cortical medullary uptake an d excretion without hydronephrosis seen bilaterally. BOWEL: Slightly suboptimal evaluation of bowel without enteric contrast. No suspicious small or large bowel dilatation is seen. Appendix within normal limits from base of cecum right lower quadrant. UTERUS/ADNEXA: Anteverted uterus projects to left of midline. Left ovary has 2.8 cm low dense lesion favoring dominant follicle or simple small ovarian cyst axial image 75. LYMPH NODES: No greater than 1cm abdominal or pelvic lymph nodes are appreciated. OSSEOUS STRUCTURES: Posterior spur disc complex effaces the anterior thecal sac L4-L5 level and L1-L2 level. Multilevel spurring in the spine. Moderate narrowing in both hip joints. OTHER: No significant additional abnormality is seen. IMPRESSION: No bowel obstruction. No significant acute finding is seen to account for patient's clini marcus symptoms on today's study.
[2020-12-02 13:58] VITALS: BP 126/87; PULSE 88; TEMP 98.1
== END 2020-12-02 13:20 | disposition home or self-care (01) ==
LOC: EC 09:04
DX: R10.11 Right upper quadrant pain (principal); R10.31 Right lower quadrant pain; R19.7 Diarrhea, unspecified; R11.2 Nausea with vomiting, unspecified; E11.9 Type 2 diabetes mellitus without complications; I10 Essential (primary) hypertension; Z79.82 Long term (current) use of aspirin; Z79.84 Long term (current) use of oral hypoglycemic drugs; Z90.49 Acquired absence of other specified parts of digestive tract
CPT/HCPCS: 36415; 74177; 80053; 81001; 81025; 82150; 83690; 85025; 96361; 96374; 96375; 99284

== ENCOUNTER 2020-12-06 05:58 | Emergency (ER) | payer OTHER ==
[2020-12-06 06:03] VITALS: TEMP 99.3
[2020-12-06] MEDS ORDERED: SODIUM CHLORIDE 0.9% 500 ML 500 ML IV STA (06:09)
[2020-12-06] MEDS ORDERED: SODIUM CHLORIDE 0.9% 1,000 ML IV STA (06:09)
[2020-12-06] MEDS ORDERED: diphenhydrAMINE 50 MG/ML 1 ML VIAL IVP STA (06:09)
[2020-12-06] MEDS ORDERED: METOCLOPRAMIDE 5 MG/ML 2 ML VIAL IVP STA (06:09)
[2020-12-06] MEDS ORDERED: MAG HYDROX/AL HYDROX/SIMETH 30 ML, HYOSCYAMINE ELIXIR 10 ML, LIDOCAINE VISCOUS 2% 10 ML PO STA ×3 (06:29)
[2020-12-06] MEDS ORDERED: FAMOTIDINE 20 MG/2 ML VIAL IV STA (06:30)
--- NOTE | 2020-12-06 06:35 | ED ---
Abdominal Pain HPI - General Chief Complaint: Abdominal Pain Stated Complaint: Abd Pain Time Seen by Provider: 12/06/20 06:07 Source: patient, RN notes reviewed Mode of arrival: ambulatory Limitations: no limitations - History of Present Illness Initial Comments: This a 30-year-old female presents emergency Department chief complaint of abdominal pain, nausea vomiting diarrhea. Patient was seen a few days ago for similar complaints. Patient states that is improving but she got better. She complains of epigastric discomfort no chest pain or shortness breath. Denies fevers or chills she's had prior cholecystectomy patient denies any dysuria deneen turia no sick contacts. Patient states she did take some Zofran at home has been helping. She does admit to some heartburn but has not taken anything for this. - Related Data Home Medications Medication Instructions Recorded Confirmed Ferrous Sulfate [Iron (65 MG 325 mg PO DAILY 09/28/18 12/02/20 Elemental)] [place]-3 Fatty Acids/Fish Oil [Fish 1 cap PO DAILY 09/28/18 12/02/20 Oil 1,000 mg Softgel] lisinopriL [Zestril] 10 mg PO DAILY 09/28/18 12/02/20 metFORMIN HCL 1,000 mg PO BID 09/28/18 12/02/20 Ammonium Lactate Lotion 1 applic TOPICAL HS 08/06/20 12/02/20 [Lac-Hydrin 12% Lotion] Cholecalciferol (Vitamin D3) 125 mcg PO DAILY 08/06/20 12/02/20 [Vitamin D3 (5000 Iu)] Fluticasone Nasal [place] [Flonase 1 spr EA NOSTRIL BID 08/06/20 12/02/20 Nasal [place]] [place] 1 tab PO HS 08/06/20 12/02/20 Loratadine [Claritin] 10 mg PO DAILY 08/06/20 12/02/20 Aspirin EC [Ecotrin Low Dose] 81 mg PO DAILY 12/02/20 12/02/20 Cider Vinegar [Apple Cider Vinegar] 300 mg PO DAILY 12/02/20 12/02/20 Empagliflozin [Jardiance] 10 mg PO DAILY 12/02/20 12/02/20 Previous Rx's Medication Instructions Recorded Ondansetron [Zofran ODT] 4 mg PO Q8HR PRN #15 tab 08/08/20 Ondansetron [Zofran ODT] 4 mg PO Q8HR PRN #15 tab 12/02/20 Famotidine [Pepcid] 20 mg PO BID #28 tablet 12/06/20 Metoclopramide [Reglan] 10 mg PO TID PRN #15 tab 12/06/20 Allergies Allergy/AdvReac Type Severity Reaction Status Date / Time No Known Allergies Allergy Verified 12/06/20 06:03 Review of Systems ROS Statement: Those systems with pertinent positive or pertinent negative responses have been documented in the HPI. ROS Other: All systems not noted in ROS Statement are negative. Past Medical History Past Medical History: Blood Disorder, Diabetes Mellitus, Hypertension Additional Past Medical History / Comment(s): IRON DEFICIENCY ANEMIA. History of Any Multi-Drug Resistant Organisms: None Reported Past Surgical History: Cholecystectomy Additional Past Surgical History / Comment(s): KIDNEY STONE REMOVAL FROM RIGHT URETER. Past Anesthesia/Blood Transfusion Reactions: No Reported Reaction Past Psychological History: No Psychological Hx Reported Smoking Status: Never smoker Past Alcohol Use History: Rare Past Drug Use History: None Reported - Past Family History Mother Family Medical History: No Reported History Father Family Medical History: No Reported History General Exam Limitations: no limitations General appearance: alert, in no apparent distress Head exam: Present: atraumatic, normocephalic, normal inspection Eye exam: Present: normal appearance, PERRL, EOMI. Absent: scleral icterus, conjunctival injection, periorbital swelling ENT exam: Present: normal exam, normal oropharynx, mucous membranes moist Neck exam: Present: normal inspection, full ROM. Absent: tenderness, meningismus, lymphadenopathy Respiratory exam: Present: normal lung sounds bilaterally. Absent: respiratory distress, wheezes, rales, rhonchi, stridor Cardiovascular Exam: Present: normal rhythm, tachycardia, normal heart sounds. Absent: systolic murmur, diastolic murmur, rubs, gallop, clicks GI/Abdominal exam: Present: soft, tenderness (Epigastric), normal bowel sounds. Absent: distended, guarding, rebound, rigid Back exam: Absent: CVA tenderness (R), CVA tenderness (L) Neurological exam: Present: alert Skin exam: Present: warm, dry, intact, normal color. Absent: rash Course Vital Signs 12/06/20 06:01 Temperature 99.3 F Pulse Rate 110 H Respiratory 24 Rate Blood Pressure 161/105 O2 Sat by Pulse 97 Oximetry Medical Decision Making - Medical Decision Making 30-year-old female presented for nausea vomiting diarrhea patient CT was reviewed from the other day which is unremarkable. Patient will hydrate, given antiemetics states she feels improved. I do feel she has some underlying gastritis. She'll be discharged in stable condition. - Lab Data Result diagrams: 12/06/20 06:37 12/06/20 06:37 Lab Results 12/06/20 12/06/20 12/06/20 Range/Units 06:29 06:29 06:37 WBC 13.6 H (3.8-10.6) k/uL RBC 5.28 (3.80-5.40) m/uL Hgb 14.8 (11.4-16.0) gm/dL Hct 44.2 (34.0-46.0) % MCV 83.8 (80.0-100.0) fL MCH 28.0 (25.0-35.0) pg MCHC 33.4 (31.0-37.0) g/dL RDW 12.8 (11.5-15.5) % Plt Count 372 (150-450) k/uL MPV 7.1 Neutrophils % 73 % Lymphocytes % 19 % Monocytes % 4 % Eosinophils % 3 % Basophils % 0 % Neutrophils # 9.8 H (1.3-7.7) k/uL Lymphocytes # 2.6 (1.0-4.8) k/uL Monocytes # 0.6 (0-1.0) k/uL Eosinophils # 0.3 (0-0.7) k/uL Basophils # 0.1 (0-0.2) k/uL Sodium (137-145) mmol/L Potassium (3.5-5.1) mmol/L Chloride (98-107) mmol/L Carbon Dioxide (22-30) mmol/L Anion Gap mmol/L BUN (7-17) mg/dL Creatinine (0.52-1.04) mg/dL Est GFR (CKD-EPI)AfAm (>60 ml/min/1.73 sqM) Est GFR (CKD-EPI)NonAf (>60 ml/min/1.73 sqM) Glucose (74-99) mg/dL Plasma Lactic Acid [place] (0.7-2.0) mmol/L Calcium (8.4-10.2) mg/dL Total Bilirubin (0.2-1.3) mg/dL AST (14-36) U/L ALT (4-34) U/L Alkaline Phosphatase (38-126) U/L Total Protein (6.3-8.2) g/dL Albumin (3.5-5.0) g/dL Amylase (30-110) U/L Lipase (23-300) U/L Urine Color Light Yellow Urine Appearance Clear (Clear) Urine pH 5.5 (5.0-8.0) Ur Specific [place] 1.006 (1.001-1.035) Urine Protein 1+ H (Negative) Urine Glucose (UA) 3+ H (Negative) Urine Ketones 1+ H (Negative) Urine Blood Large H (Negative) Urine Nitrite Negative (Negative) Urine Bilirubin Negative (Negative) Urine Urobilinogen <2.0 (<2.0) mg/dL Ur Leukocyte Esterase Trace H (Negative) Urine RBC 11 H (0-5) /hpf Urine WBC 8 H (0-5) /hpf Ur Squamous Epith Cells <1 (0-4) /hpf Urine Bacteria Rare H (None) /hpf Urine Mucus Rare H (None) /hpf Urine HCG, Qual Not Detected (Not Detectd) 12/06/20 12/06/20 Range/Units 06:37 06:37 WBC (3.8-10.6) k/uL RBC (3.80-5.40) m/uL Hgb (11.4-16.0) gm/dL Hct (34.0-46.0) % MCV (80.0-100.0) fL MCH (25.0-35.0) pg MCHC (31.0-37.0) g/dL RDW (11.5-15.5) % Plt Count (150-450) k/uL MPV Neutrophils % % Lymphocytes % % Monocytes % % Eosinophils % % Basophils % % Neutrophils # (1.3-7.7) k/uL Lymphocytes # (1.0-4.8) k/uL Monocytes # (0-1.0) k/uL Eosinophils # (0-0.7) k/uL Basophils # (0-0.2) k/uL Sodium 141 (137-145) mmol/L Potassium 4.3 (3.5-5.1) mmol/L Chloride 105 (98-107) mmol/L Carbon Dioxide 24 (22-30) mmol/L Anion Gap 12 mmol/L BUN 6 L (7-17) mg/dL Creatinine 0.59 (0.52-1.04) mg/dL Est GFR (CKD-EPI)AfAm >90 (>60 ml/min/1.73 sqM) Est GFR (CKD-EPI)NonAf >90 (>60 ml/min/1.73 sqM) Glucose 159 H (74-99) mg/dL Plasma Lactic Acid [place] 2.1 H* (0.7-2.0) mmol/L Calcium 10.2 (8.4-10.2) mg/dL Total Bilirubin 0.7 (0.2-1.3) mg/dL AST 39 H (14-36) U/L ALT 43 H (4-34) U/L Alkaline Phosphatase 57 (38-126) U/L Total Protein 7.2 (6.3-8.2) g/dL Albumin 4.2 (3.5-5.0) g/dL Amylase 45 (30-110) U/L Lipase 101 (23-300) U/L Urine Color Urine Appearance (Clear) Urine pH (5.0-8.0) Ur Specific [place] (1.001-1.035) Urine Protein (Negative) Urine Glucose (UA) (Negative) Urine Ketones (Negative) Urine Blood (Negative) Urine Nitrite (Negative) Urine Bilirubin (Negative) Urine Urobilinogen (<2.0) mg/dL Ur Leukocyte Esterase (Negative) Urine RBC (0-5) /hpf Urine WBC (0-5) /hpf Ur Squamous Epith Cells (0-4) /hpf Urine Bacteria (None) /hpf Urine Mucus (None) /hpf Urine HCG, Qual (Not Detectd) Disposition Clinical Impression: Gastritis, Gastroenteritis Disposition: HOME SELF-CARE Condition: Stable Instructions (If sedation given, give patient instructions): Gastritis (ED) Additional Instructions: Please return to the Emergency Department if symptoms worsen or any other concerns. Prescriptions: Famotidine [Pepcid] 20 mg PO BID #28 tablet Metoclopramide [Reglan] 10 mg PO TID PRN #15 tab PRN Reason: Nausea Is patient prescribed a controlled substance at d/c from ED?: No Referrals: Jaswinder Rivera MD [Primary Care Provider] - 1-2 days Time of Disposition: 08:10
[2020-12-06 06:57] LABS: Basophils # (A) 0.1 k/uL (0-0.2); Basophils % (A) 0 %; Eosinophils # (A) 0.3 k/uL (0-0.7); Eosinophils % (A) 3 %; HCT 44.2 % (34.0-46.0); HGB 14.8 gm/dL (11.4-16.0); Lymphocytes # (A) 2.6 k/uL (1.0-4.8); Lymphocytes % (A) 19 %; MCHC 33.4 g/dL (31.0-37.0); MCV 83.8 fL (80.0-100.0); Mean Platelet Volume 7.1; Monocytes # (A) 0.6 k/uL (0-1.0); Monocytes % (A) 4 %; Neutrophils # (A) 9.8 k/uL (1.3-7.7); Neutrophils % (A) 73 %; Platelet Count 372 k/uL (150-450); RBC 5.28 m/uL (3.80-5.40); RDW 12.8 % (11.5-15.5); WBC 13.6 k/uL (3.8-10.6)
[2020-12-06 06:58] LABS: Appearance,Urine Clear (Clear); Bacteria,Urine Rare /hpf; Bilirubin,Urine Negative (Negative); Blood,Urine Large (Negative); Color,Urine Light Yellow; Glucose,Urine (UA) 3+ (Negative); Ketones,Urine 1+ (Negative); Leukocyte Esterase,Urine Trace (Negative); Mucus,Urine Rare /hpf; Nitrite,Urine Negative (Negative); PH, Urine 5.5 (5.0-8.0); Protein,Urine 1+ (Negative); RBC,Urine 11 /hpf (0-5); Specific Gravity,Urine 1.006 (1.001-1.035); Squamous Epithelial Cell,Urine <1 /hpf (0-4); Urobilinogen,Urine <2.0 mg/dL (<2.0); WBC,Urine 8 /hpf (0-5)
[2020-12-06 07:09] LABS: ALT 43 U/L (4-34); AST 39 U/L (14-36); African American GFR (CKD) >90 (>60 ml/min/1.73 sqM); Albumin 4.2 g/dL (3.5-5.0); Alkaline Phosphatase 57 U/L (38-126); Amylase 45 U/L (30-110); Anion Gap 12 mmol/L; Blood Urea Nitrogen 6 mg/dL (7-17); Calcium 10.2 mg/dL (8.4-10.2); Carbon Dioxide 24 mmol/L (22-30); Chloride 105 mmol/L (98-107); Glucose 159 mg/dL (74-99); Lipase 101 U/L (23-300); Non-African American GFR(CKD) >90 (>60 ml/min/1.73 sqM); Potassium 4.3 mmol/L (3.5-5.1); Sodium 141 mmol/L (137-145); Total Bilirubin 0.7 mg/dL (0.2-1.3); Total Protein 7.2 g/dL (6.3-8.2)
[2020-12-06 08:23] VITALS: BP 145/96; PULSE 96; RESP 18
== END 2020-12-06 08:23 | disposition home or self-care (01) ==
LOC: EC 05:58
DX: K29.70 Gastritis, unspecified, without bleeding (principal); K52.9 Noninfective gastroenteritis and colitis, unspecified; E11.9 Type 2 diabetes mellitus without complications; I10 Essential (primary) hypertension; Z79.899 Other long term (current) drug therapy; Z79.84 Long term (current) use of oral hypoglycemic drugs; Z90.49 Acquired absence of other specified parts of digestive tract
CPT/HCPCS: 99284; 96374; 96375; 36415; 80053; 82150; 83605; 83690; 85025; 81001; 81025; J1200; J2765

== ENCOUNTER 2021-01-07 07:20 | Day surgery (SDC) | payer OTHER ==
[2021-01-05 15:49] VITALS: BMI 60.6
[~2021-01-07 07:20] MED LIST changes: -BUPIVACAINE-EPI 0.5%-1:200,000 10 ML VIAL SQ ONE; -DEXAMETHASONE SOD PHOSPHATE 10 MG/ML 1 ML VIAL IV ONE; -ESMOLOL 100 MG/10 ML VIAL ONE; -GLYCOPYRROLATE 0.2 MG/ML 2 ML VIAL ONE; -HEPARIN SODIUM,PORCINE 5,000 UNIT/ML 1 ML VIAL SQ ONE; -HYDROcodone/APAP 7.5-325MG 1 EACH TAB PO ONE; -KETOROLAC 30 MG/ML 1 ML VIAL ONE; -LACTATED RINGERS 1,000 ML IV ONE; +LACTATED RINGERS 1,000 ML IV SCH; -LIDOCAINE 1% INJ 10MG/ML (20 ML MDV) ONE; -MIDAZOLAM 2 MG/2 ML VIAL ONE; -NEOSTIGMINE 1 MG/ML 10 ML VIAL ONE; -ONDANSETRON 4 MG/2 ML VIAL IVP ONE; -PROPOFOL 10 MG/ML 20 ML VIAL IV ONE; -ROCURONIUM BROMIDE 10 MG/ML 10 ML VIAL IV ONE; -SUCCINYLCHOLINE CHLORIDE VIAL 200 MG/10 ML VIAL IV ONE; -ceFAZolin 3 GM in SODIUM CHLORIDE 0.9% 100 ML IVPB ONE; -ePHEDrine SULFATE/0.9% NACL/PF 50 MG/5 ML SYRINGE IV ONE; -fentaNYL (PF) 50 MCG/ML 2 ML AMP ONE
[2021-01-07 08:01] LABS: Glucose,Whole Blood 107 mg/dL (75-99)
[2021-01-07 08:16] VITALS: TEMP 97.7
[2021-01-07] MEDS ORDERED: GLYCOPYRROLATE 0.2 MG/ML 2 ML VIAL ONE (08:17)
[2021-01-07] MEDS ORDERED: PROPOFOL 10 MG/ML 20 ML VIAL IV ONE (08:17)
[2021-01-07] MEDS ORDERED: KETAMINE 10 MG/ML 20 ML VIAL ONE (08:17)
[2021-01-07] MEDS ORDERED: LIDOCAINE 1% INJ 10MG/ML (20 ML MDV) ONE (08:17)
[2021-01-07] MEDS ORDERED: MIDAZOLAM 2 MG/2 ML VIAL ONE (08:17)
[2021-01-07] MEDS ORDERED: fentaNYL (PF) 50 MCG/ML 2 ML AMP ONE (08:17)
--- NOTE | 2021-01-07 08:58 | P.PCN ---
Date of Procedure: 01/07/21 Description of Procedure: Brief history: Patient is a pleasant 30-year-old female presenting for outpatient EGD and colonoscopy for evaluation of epigastric abdominal pain and rectal bleeding. Patient reports intermittent episodes of epigastric abdominal pain. She also reports frequent loose stool with associated bright red blood per rectum. Procedure performed: Esophagogastroduodenoscopy with biopsy Colonoscopy with biopsy Estimated blood loss: Minimal. Preoperative diagnosis: Epigastric abdominal pain, per rectum, change in bowel habits Anesthesia: MAC Procedure: After informed consent was obtained from the patient was brought into the endoscopy unit and IV sedation was administered by anesthesia under continuous monitoring. Initially upper endoscopy was done. The Olympus GF 190 video endoscope was inserted into the mouth and esophagus intubated without any dif ficulty and was gradually advanced into the stomach and duodenum and carefully examined. The bulb and second part of the duodenum appeared normal, with biopsies taken to rule out celiac sprue. The scope was then withdrawn into the stomach adequately insufflated with air and upon careful examination the antrum and body, cardia and fundus appeared normal, except for some mild scattered erythema in the antrum and body suggestive of mild gastritis with biopsies taken. The scope was then withdrawn into the esophagus. The GE junction was located at 42 cm to the incisors, with biopsies of the lower esophagus taken. It appeared regular with no erythema erosions or ulcerations. Rest of the esophagus appeared normal. Patient tolerated the procedure well. At this time the patient continued to remain sedation. Initial digital rectal examination was normal. Olympus CF 190 video colonoscope was then inserted into the rectum and gradually advanced to the cecum without any difficulty. Careful examination was performed as the scope was gradually being withdrawn. The prep was excellent. The cecum, ascending colon, transverse colon, descending colon, sigmoid colon and rectum appeared normal with biopsies taken of the right left colon. The terminal ileum appeared normal with biopsies taken. Retroflexion was performed in the rectum and no lesions were noted, With low-grade internal hemorrhoids noted and skin tags. Patient tolerated the procedure well. Impression: 1. Mild gastritis. Biopsies of the duodenum, antrum and body and lower esophagus. 2. Normal-appearing colon from rectum to cecum and normal appearing terminal ileum with random biopsies taken of the right colon, left colon and a normal- appearing terminal ileum. Internal hemorrhoids. Recommendations: Findings of this examination were discussed with the patient as well as Her family. Okay to resume diet. Okay to resume medications. Await pathology from biopsies. Recommend local hemorrhoidal care with warm baths, topical steroid therapy, Tucks pads if further rectal bleeding or referral to surgical service for possible hemorrhoidectomy.
[2021-01-07 09:32] VITALS: BP 159/98; PULSE 109; RESP 16
== END 2021-01-07 09:34 | disposition home or self-care (01) ==
LOC: ORWHC2ENDO 07:20
PROVIDERS: ATTEND Internal Medicine
DX: K29.50 Unspecified chronic gastritis without bleeding (principal); K64.8 Other hemorrhoids; G47.30 Sleep apnea, unspecified; K21.9 Gastro-esophageal reflux disease without esophagitis; I10 Essential (primary) hypertension; Z79.84 Long term (current) use of oral hypoglycemic drugs
CPT/HCPCS: 45380; 43239; 81025; 88305; J2250; J2001; J3010; J2704

== ENCOUNTER → 2021-02-04 | Outpatient (CLI) | payer OTHER ==
[2021-02-04 15:41] LABS: HCT 44.4 % (37.2-46.3); HGB 14.2 g/dL (12.0-15.0); MCH 27.7 pg (27.0-32.0); MCV 86.5 fL (80.0-97.0); Mean Platelet Volume 10.9 fL (9.5-12.2); Platelet Count 357 X 10*3/uL (140-440); RBC 5.13 X 10*6/uL (4.10-5.20); RDW 13.2 % (11.5-14.5); WBC 10.95 X 10*3/uL (4.50-10.00)
[2021-02-05 01:48] LABS: ALT 41 U/L (8-44); AST 33 U/L (13-35); Albumin/Globulin Ratio 1.62 (1.60-3.17); Alkaline Phosphatase 47 U/L (41-126); Bilirubin, Conjugated <0.20 mg/dL (0.20-0.40); Globulin 2.6 g/dL (1.6-3.3); Total Bilirubin 0.4 mg/dL (0.2-1.2); Total Protein 6.8 g/dL (6.2-8.2)
[2021-02-05 06:06] LABS: Hepatitis A Antibody IgM Non-Reactive (Non-Reactive); Hepatitis B Core IgM Non-Reactive (Non-Reactive); Hepatitis B Surface Antigen Non-Reactive (Non-Reactive); Hepatitis C IgG Antibody Non-Reactive (Non-Reactive)
== END | disposition home or self-care (01) ==
LOC: LABWHC1 08:45
PROVIDERS: ATTEND Physician Assistant
DX: R74.01 Elevation of levels of liver transaminase levels (principal)
CPT/HCPCS: 36415; 80074; 80076; 85027

== ENCOUNTER → 2021-02-25 | Outpatient (CLI) | payer OTHER ==
--- NOTE | 2021-02-25 14:07 | SFUN ---
SLEEP CENTER FOLLOW UP NOTE DATE OF SERVICE: This 31-year-old lady has been followed in Sleep Center for treatment of obstructive sleep apnea-hypopnea syndrome. The patient continues to use her CPAP equipment every night. She has significantly lost weight of 26 pounds compared to her previous visit, but no significant problem related to the pressure in the machine. [place] Sleepiness Scale today is 7, which is in normal range. Patient is receiving her supplies in time. I checked her CPAP unit. Pressure is 10 cm of water. Usage is 29/30 nights and 26/30 nights for more than 4 hours, with average usage 7.9 hours per night. Leak is 17 L/minute, which is borderline. Apnea-hypopnea index is zero, according to reading from the machine. MEDICATIONS: 1. Metformin 1000 mg twice a day. 2. Ammonium lactate. 3. Flonase 50 mcg twice a day. 4. Ferrous sulfate 325 mg once a day. 5. Jardiance. 6. Pantoprazole. 7. Lisinopril. PHYSICAL EXAMINATION: GENERAL: Pleasant patient in no distress. VITAL SIGNS: BP 169/99, HR around 100, RR 16, height 5 feet 8 inches, weight 385.6, body mass index 58.3, temperature 98.1, oxygen saturation at room air 95%. HEENT: PERRLA, EOMI, evaluation of oropharynx showed tongue protrudes midline. Low position of soft palate; Mallampati III. NECK: Supple, no JVD. Thyroid is not palpable. LUNGS: Clear to percussion and to auscultation. Good air exchange. No wheezing or rhonchi. HEART: S1, S2 regular. No murmurs, gallops, or rubs. ABDOMEN: Obese. EXTREMITIES: No clubbing or cyanosis. WAREHOUSE ASSOCIATE: Awake, alert, and oriented X3. Cranial nerves 2 to 7 intact. There is no fasciculation or atrophy. noted. No focal deficits observed. IMPRESSION: 1. Obstructive sleep apnea-hypopnea syndrome. Patient demonstrated good compliance with treatment, benefitting from treatment. Normal respiration on CPAP. 2. Morbid obesity. Body mass index 58.3. The patient lost 26 pounds since previous visit. 3. Diabetes mellitus. 4. History of iron deficiency. 5. Status post cholecystectomy. 6. History of kidney stones, status post surgical treatment. PLAN: 1. Change air filter. It looked slightly garcia when I checked the CPAP unit. 2. No problems with the pressure. No necessity to change any pressure at the present time. 3. Patient will continue to use PAP equipment every night for the whole night. 4. Sleep hygiene with regular time in bed for at least 7-1/2 to 8 hours. 5. Precautions related to driving. No driving if feeling sleepiness. 6. I will maintain all necessary prescription for PAP supplies including mask, tube, filters. 7. Aggressive losing weight program. 8. Follow-up visit in 6 months or earlier if patient has any problems. I spent 30 minutes with patient and documentation. Thank you very much for allowing me to participate in the management of your patient. Sincerely, Chan Gregorio MD, PhD, FAASM Diplomat of [employer] Sleep Medicine Board of [employer] [employer] Lead Generation Specialist of [facility] [place] MMTUSHAR / YARA: [id number] /
== END | disposition home or self-care (01) ==
LOC: SLEEP 11:52
PROVIDERS: ATTEND Internal Medicine
DX: G47.33 Obstructive sleep apnea (adult) (pediatric) (principal); E66.01 Morbid (severe) obesity due to excess calories; E11.9 Type 2 diabetes mellitus without complications; K91.5 Postcholecystectomy syndrome; Z87.442 Personal history of urinary calculi; Z68.43 Body mass index [BMI] 50.0-59.9, adult

== ENCOUNTER → 2021-03-02 | Outpatient (CLI) | payer OTHER ==
--- NOTE | 2021-03-02 15:35 | XR ---
EXAMINATION TYPE: XR abdomen 1V DATE OF EXAM: 03/02/2021 COMPARISON: 03/04/2020 HISTORY: Right-sided lower quadrant pain TECHNIQUE: AP abdomen FINDINGS: Normal colonic bowel gas is present. Minimal fecal debris is present. No mass effect is addie dent. Sacroiliac joints are patent. Symphysis pubis is unremarkable. Organomegaly is not evident. No suspic ious calcifications are evident. IMPRESSION: 1. No suspicious abnormality abdomen x-ray
--- NOTE | 2021-03-02 15:41 | XR ---
EXAMINATION TYPE: XR pelvis AP view DATE OF EXAM: 03/02/2021 COMPARISON: None HISTORY: Right-sided lower quadrant pain TECHNIQUE: AP pelvis FINDINGS: No acute fracture or dislocation. Femoral heads articulate with the acetabulum. Symphysis p ubis and sacroiliac joints are normal. Bowel gas pattern is normal. IMPRESSION: 1. Normal AP pelvis
== END | disposition home or self-care (01) ==
LOC: RADXRMAIN 14:43
PROVIDERS: ATTEND Nurse Practitioner
DX: R10.9 Unspecified abdominal pain (principal)
CPT/HCPCS: 72170; 74018

== ENCOUNTER → 2021-03-31 | Outpatient (CLI) | payer OTHER ==
--- NOTE | 2021-03-31 15:54 | US ---
EXAMINATION TYPE: US kidneys/renal and bladder DATE OF EXAM: 03/31/2021 COMPARISON: CT 12/12/2020. CLINICAL HISTORY: N20.0 NEPHROLITHIASIS. EXAM MEASUREMENTS: Right Kidney: 16.1x6.6x7.6 cm Left Kidney: 15.3x6.0x6.2 cm Mild pelvic fullness within the right kidney. Right Kidney: Multiple echogenic foci mid-1.5cm inf-1.1 inf 0.5cm inf 1.2cm these were present on C T 12/02/2020. Left Kidney: wnl Bladder: wnl Bilateral Jets seen: No IMPRESSION: 1. Multiple echogenic foci within the inferior right kidney compatible with large nonobstructing ston es.
== END | disposition home or self-care (01) ==
LOC: RADUSWWP 14:52
PROVIDERS: ATTEND Internal Medicine
DX: N20.0 Calculus of kidney (principal)
CPT/HCPCS: 76770

== ENCOUNTER → 2021-06-11 | Outpatient (CLI) | payer OTHER ==
--- NOTE | 2021-06-11 14:46 | XR ---
EXAMINATION TYPE: XR KUB DATE OF EXAM: 06/11/2021 COMPARISON: 03/04/2020 HISTORY: Pain TECHNIQUE: One view abdominal series FINDINGS: The osseous structures are intact. The bowel gas pattern is nonspecific. Left SI joint sclerosis que stioned. IMPRESSION: 1. Nonspecific abdomen. Question left sacroiliitis.
== END | disposition home or self-care (01) ==
LOC: RADXRMAIN 14:18
PROVIDERS: ATTEND Nurse Practitioner Family
DX: R10.9 Unspecified abdominal pain (principal)
CPT/HCPCS: 74018

== ENCOUNTER → 2021-08-23 | Outpatient (CLI) | payer OTHER ==
--- NOTE | 2021-08-23 16:55 | XR ---
EXAMINATION TYPE: XR ankle complete LT DATE OF EXAM: 08/23/2021 COMPARISON: None HISTORY: Pain TECHNIQUE: 3 view left ankle FINDINGS: Mild soft tissue swelling is present diffusely. The ankle mortise appears intact. No acute fracture or dislocation is evident. Achilles tendon calcaneal heel spur is noted. IMPRESSION: 1. No acute osseous abnormality. 2. Follow up exams can be performed 7-10 days from acute trauma for continued pain.
== END | disposition home or self-care (01) ==
LOC: RADXRMAIN 14:48
PROVIDERS: ATTEND Nurse Practitioner Family
DX: M25.572 Pain in left ankle and joints of left foot (principal)

== ENCOUNTER → 2021-08-26 | Outpatient (CLI) | payer OTHER ==
--- NOTE | 2021-08-26 12:08 | SFUN ---
SLEEP CENTER FOLLOW UP NOTE DATE OF SERVICE: 08/26/2021 This 31-year-old lady has been followed in Sleep Center for treatment of obstructive sleep apnea-hypopnea syndrome. The patient continues to use her CPAP equipment every night for the whole night and is getting her supplies on time. [place] Sleepiness Scale today is 6, which is normal. I checked her CPAP unit. Pressure is 10 cm of water. Usage is 30/30 nights for more than 4 hours, average 8.4 hours per night. Leak is 14 L/minute. Apnea-hypopnea index only 0.1, which is extremely low; perfect range. MEDICATIONS: 1. Metformin 1000 mg twice a day. 2. Lisinopril 20 mg once a day. 3. Jardiance 10 mg once a day. 4. once a day. 5. Ferrous gluconate 325 mg once a day. 6. Chlorthalidone 25 mg once a day. 7. Loratadine 10 mg once a day. 8. Dicyclomine 10 mg as needed. 9. Pantoprazole 10 mg once a day. 10.Atorvastatin 40 mg once a day. 11.Flonase. PHYSICAL EXAMINATION: GENERAL: Pleasant patient in no distress. VITAL SIGNS: BP 136/88, HR 94, RR 18, weight 379 pounds. Patient lost 6 pounds since her previous visit. Height 5 feet 8 inches, temperature 97.2, oxygen saturation at room air 97%. HEENT: PERRLA, EOMI, evaluation of oropharynx showed tongue protrudes midline. Low position of soft palate; Mallampati III. NECK: Supple, no JVD. Thyroid is not palpable. LUNGS: Clear to percussion and to auscultation. Good air exchange. No wheezing or rhonchi. HEART: S1, S2 regular. No murmurs, gallops, or rubs. ABDOMEN: Obese. EXTREMITIES: No clubbing or cyanosis. SALES SUPPORT CONSULTANT: Awake, alert, and oriented X3. Cranial nerves 2 to 7 intact. There is no fasciculation or atrophy. noted. No focal deficits observed. IMPRESSION: 1. Obstructive sleep apnea-hypopnea syndrome. Patient demonstrated 100% compliance with treatment. Totally normal respiration on CPAP. 2. Obesity. Present weight is 379.4 pounds. 3. Diabetes mellitus. 4. History of iron deficiency. 5. Status post cholecystectomy. 6. History of kidney stones, status post surgical treatment. PLAN: 1. Patient will continue to use PAP equipment every night for the whole night. 2. Sleep hygiene with regular time in bed for at least 7-1/2 to 8 hours. 3. Precautions related to driving. No driving if feeling sleepiness. 4. I will maintain all necessary prescription for PAP supplies including mask, tube, filters. 5. Watching weight. 6. Follow-up visit in one year or earlier if patient has any problems. Thank you very much for allowing me to participate in the management of your patient. Sincerely, Chan Gregorio MD, PhD, FAASM Diplomat of [employer] Sleep Medicine Board of [employer] Maintenance Equipment Operator of [facility] [place] MMLENKAL / JONATHANN: [id number] /
== END | disposition home or self-care (01) ==
LOC: SLEEP 10:17
PROVIDERS: ATTEND Internal Medicine
DX: G47.33 Obstructive sleep apnea (adult) (pediatric) (principal); E66.9 Obesity, unspecified; E11.9 Type 2 diabetes mellitus without complications; Z90.49 Acquired absence of other specified parts of digestive tract; Z86.2 Personal history of diseases of the blood and blood-forming organs and certain disorders involving the immune mechanism; Z87.442 Personal history of urinary calculi

== ENCOUNTER → 2021-11-29 | Outpatient (CLI) | payer OTHER ==
[2021-11-29 14:50] LABS: Albumin 4.1 g/dL (3.8-4.9); Albumin/Globulin Ratio 1.58 (1.60-3.17); Anion Gap 13.5 mmol/L (10.00-18.00); BUN/Creat Ratio 24.66 Ratio (12.00-20.00); Blood Urea Nitrogen 14.4 mg/dL (9.0-27.0); Calcium 9.9 mg/dL (8.7-10.3); Carbon Dioxide 24.3 mmol/L (20.0-27.5); Globulin 2.6 g/dL (1.6-3.3); Non-African American GFR(CKD) 121.7 (60.0-200.0); Total Bilirubin 0.6 mg/dL (0.30-1.20); Total Protein 6.7 g/dL (6.2-8.2)
== END | disposition home or self-care (01) ==
LOC: LABWHC1 09:36
PROVIDERS: ATTEND Internal Medicine Gastroenterology
DX: R74.01 Elevation of levels of liver transaminase levels (principal)
CPT/HCPCS: 36415; 80053

== ENCOUNTER → 2021-12-10 | Outpatient (CLI) | payer OTHER ==
--- NOTE | 2021-12-10 15:53 | US ---
EXAMINATION TYPE: US kidneys/renal and bladder DATE OF EXAM: 12/10/2021 COMPARISON: CT, US CLINICAL HISTORY: N20.0. Stones. Hx stone removed from right kidney October 2019. EXAM MEASUREMENTS: Right Kidney: 16.6 x 7.1 x 5.1 cm Left Kidney: 15.0 x 6.4 x 5.8 cm Limited due to body habitus. Right Kidney: Appears enlarged. Hyperechoic focus seen lower pole: 0.8 x 1.1 x 0.6 cm. Appearance of possible dilated lower collecting system near hyperechoic area. Left Kidney: Appears enlarged. No hydronephrosis or masses seen Bladder: Appears anechoic. Bilateral Jets seen: Not seen during exam. IMPRESSION: Lower pole right renal calculus with the prominence of the lower pole collecting system right kidney.
== END | disposition home or self-care (01) ==
LOC: RADUSWWP 15:01
PROVIDERS: ATTEND Surgery
DX: N20.0 Calculus of kidney (principal)
CPT/HCPCS: 76770

== ENCOUNTER → 2022-03-08 | Outpatient (CLI) | payer OTHER ==
[2022-03-08 14:54] LABS: Basophils # (A) 0.07 X 10*3/uL (0.00-0.10); Basophils % (A) 0.5 %; Eosinophils # (A) 0.28 X 10*3/uL (0.04-0.35); Eosinophils % (A) 2.1 %; HCT 44.9 % (37.2-46.3); HGB 14.4 g/dL (12.0-15.0); Immature Grans, Automated 0.4 %; Lymphocytes # (A) 3.03 X 10*3/uL (0.90-5.00); Lymphocytes % (A) 22.2 %; MCHC 32.1 g/dL (32.0-37.0); MCV 84.2 fL (80.0-97.0); Mean Platelet Volume 10.5 fL (9.5-12.2); Monocytes # (A) 0.81 X 10*3/uL (0.20-1.00); Monocytes % (A) 5.9 %; NRBC Per 100 WBC 0 /100 WBCS (0.0-0.0); Neutrophils # (A) 9.38 X 10*3/uL (1.80-7.70); Neutrophils % (A) 68.9 %; Platelet Count 394 X 10*3/uL (140-440); RBC 5.33 X 10*6/uL (4.10-5.20); RDW 13.3 % (11.5-14.5); WBC 13.63 X 10*3/uL (4.50-10.00)
[2022-03-08 17:00] LABS: Chol/HDL Ratio 4.15 Ratio; LDL Cholesterol,Calculated 63.7 mg/dL (0.0-131.0)
[2022-03-08 17:05] LABS: ALT 21 U/L (8-44); AST 16 U/L (13-35); African American GFR (CKD) 138.8 (60.0-200.0); Albumin 4.1 g/dL (3.8-4.9); Albumin/Globulin Ratio 1.52 (1.60-3.17); Alkaline Phosphatase 62 U/L (41-126); Blood Urea Nitrogen 14.1 mg/dL (9.0-27.0); Calcium 9.9 mg/dL (8.7-10.3); Carbon Dioxide 26.1 mmol/L (20.0-27.5); Chloride 97 mmol/L (96-109); Globulin 2.7 g/dL (1.6-3.3); Glucose 171 mg/dL (70-110); Non-African American GFR(CKD) 119.8 (60.0-200.0); Potassium 4.1 mmol/L (3.5-5.5); Sodium 138 mmol/L (135-145); Total Protein 6.8 g/dL (6.2-8.2)
== END | disposition home or self-care (01) ==
LOC: LABWHC1 08:39
PROVIDERS: ATTEND Family Medicine
DX: E11.9 Type 2 diabetes mellitus without complications (principal)
CPT/HCPCS: 36415; 80053; 80061; 83036; 84439; 84443; 85025

== ENCOUNTER → 2022-05-04 | Outpatient (CLI) | payer OTHER ==
[2022-05-04 15:46] LABS: African American GFR (CKD) 131.9 (60.0-200.0); Anion Gap 12.9 mmol/L (10.00-18.00); BUN/Creat Ratio 19.14 Ratio (12.00-20.00); Blood Urea Nitrogen 13.4 mg/dL (9.0-27.0); Calcium 9.7 mg/dL (8.7-10.3); Carbon Dioxide 26.1 mmol/L (20.0-27.5); Non-African American GFR(CKD) 113.8 (60.0-200.0); Potassium 4.2 mmol/L (3.5-5.5)
== END | disposition home or self-care (01) ==
LOC: LABWHC1 08:43
PROVIDERS: ATTEND Internal Medicine
DX: N20.0 Calculus of kidney (principal)
CPT/HCPCS: 36415; 80048

== ENCOUNTER → 2022-06-02 | Outpatient (CLI) | payer OTHER ==
[2022-06-02 18:09] LABS: Albumin 4.1 g/dL (3.8-4.9); Albumin/Globulin Ratio 1.46 (1.60-3.17); Anion Gap 10.8 mmol/L (10.00-18.00); BUN/Creat Ratio 17.3 Ratio (12.00-20.00); Blood Urea Nitrogen 11.3 mg/dL (9.0-27.0); Calcium 9.5 mg/dL (8.7-10.3); Carbon Dioxide 27.8 mmol/L (20.0-27.5); Globulin 2.8 g/dL (1.6-3.3); Non-African American GFR(CKD) 116.5 (60.0-200.0); Total Bilirubin 0.5 mg/dL (0.30-1.20); Total Protein 6.9 g/dL (6.2-8.2)
== END | disposition home or self-care (01) ==
LOC: LABWHC1 13:55
PROVIDERS: ATTEND Internal Medicine Gastroenterology
DX: R74.01 Elevation of levels of liver transaminase levels (principal)
CPT/HCPCS: 36415; 80053

== ENCOUNTER → 2022-06-08 | Outpatient (CLI) | payer OTHER ==
[2022-06-08 14:30] LABS: Basophils # (A) 0.06 X 10*3/uL (0.00-0.10); Basophils % (A) 0.4 %; Eosinophils # (A) 0.26 X 10*3/uL (0.04-0.35); Eosinophils % (A) 1.7 %; HCT 44.3 % (37.2-46.3); HGB 14.7 g/dL (12.0-15.0); Immature Grans, Automated 0.5 %; Lymphocytes # (A) 3.82 X 10*3/uL (0.90-5.00); Lymphocytes % (A) 24.8 %; MCH 27.6 pg (27.0-32.0); MCHC 33.2 g/dL (32.0-37.0); MCV 83.3 fL (80.0-97.0); Mean Platelet Volume 10.2 fL (9.5-12.2); Monocytes # (A) 0.95 X 10*3/uL (0.20-1.00); Monocytes % (A) 6.2 %; NRBC Per 100 WBC 0 /100 WBCS (0.0-0.0); Neutrophils # (A) 10.27 X 10*3/uL (1.80-7.70); Neutrophils % (A) 66.4 %; Platelet Count 381 X 10*3/uL (140-440); RBC 5.32 X 10*6/uL (4.10-5.20); RDW 14.2 % (11.5-14.5); WBC 15.43 X 10*3/uL (4.50-10.00)
[2022-06-08 14:42] LABS: ALT 14 U/L (8-44); AST 15 U/L (13-35); African American GFR (CKD) 140.1 (60.0-200.0); Albumin 3.9 g/dL (3.8-4.9); Albumin/Globulin Ratio 1.29 (1.60-3.17); Alkaline Phosphatase 53 U/L (41-126); BUN/Creat Ratio 28.82 Ratio (12.00-20.00); Blood Urea Nitrogen 16.8 mg/dL (9.0-27.0); Calcium 9.6 mg/dL (8.7-10.3); Carbon Dioxide 22.5 mmol/L (20.0-27.5); Chloride 99 mmol/L (96-109); Chol/HDL Ratio 3.43 Ratio; Glucose 160 mg/dL (70-110); LDL Cholesterol,Calculated 43.4 mg/dL (0.0-131.0); Non-African American GFR(CKD) 120.9 (60.0-200.0); Potassium 3.8 mmol/L (3.5-5.5); Sodium 137 mmol/L (135-145)
== END | disposition home or self-care (01) ==
LOC: LABWHC1 08:55
PROVIDERS: ATTEND Family Medicine
DX: E11.9 Type 2 diabetes mellitus without complications (principal)
CPT/HCPCS: 36415; 80053; 80061; 83036; 84439; 84443; 85025

== ENCOUNTER 2022-07-06 07:56 | Emergency (ER) | payer OTHER ==
[2022-07-06 08:00] VITALS: TEMP 98.3
[2022-07-06] MEDS ORDERED: SODIUM CHLORIDE 0.9% 1,000 ML IV STA (08:08)
--- NOTE | 2022-07-06 08:32 | ED ---
General Adult HPI - General Chief complaint: Chest Pain Stated complaint: chest pain, nausea Time Seen by Provider: 07/06/22 08:04 Source: patient, family (mom), RN notes reviewed, old records reviewed Mode of arrival: ambulatory Limitations: no limitations - History of Present Illness Initial comments: This is a pleasant 32-year-old female that presents with her mother complaining of chest pain shortly after waking up this morning around 7am. Patient states pain has been present for approximately one hour. Dull in nature and radiates into her left shoulder and back of her neck. Denies any nausea vomiting, difficulty breathing, diaphoresis or fevers. States has not had anything to eat or drink since 5 PM yesterday. Patient has a history of morbid obesity, diabetes, hypertension, obstructive sleep apnea and iron deficiency anemia. Surgical history of cholecystectomy. Non-smoker. -: hour(s) (1) Location: chest Radiation: neck, extremity (left shoulder) Severity scale (1-10): 4 Quality: dull Consistency: constant Improves with: none Worsens with: none Associated Symptoms: denies other symptoms Treatments Prior to Arrival: none - Related Data Home Medications Medication Instructions Recorded Confirmed Ferrous Sulfate [Iron (65 MG 325 mg PO DAILY 09/28/18 01/05/21 Elemental)] [place]-3 Fatty Acids/Fish Oil [Fish 1,000 mg PO DAILY 09/28/18 01/05/21 Oil 1,000 mg Softgel] lisinopriL [Zestril] 10 mg PO DAILY 09/28/18 01/05/21 metFORMIN HCL [Glucophage] 1,000 mg PO BID 09/28/18 01/05/21 Ammonium Lactate Lotion 1 applic TOPICAL HS 08/06/20 01/05/21 [Lac-Hydrin 12% Lotion] Cholecalciferol (Vitamin D3) 125 mcg PO DAILY 08/06/20 01/05/21 [Vitamin D3 (5000 Iu)] Fluticasone Nasal [place] [Flonase 1 spr EA NOSTRIL BID 08/06/20 01/05/21 Nasal [place]] Elma 1 tab PO HS 08/06/20 01/05/21 Loratadine [Claritin] 10 mg PO DAILY 08/06/20 01/05/21 Empagliflozin [Jardiance] 10 mg PO DAILY 12/02/20 01/05/21 Amoxic-Pot Clav 875-125Mg 1 tab PO Q12HR 01/05/21 01/05/21 [Augmentin 875-125] Pantoprazole [Protonix] 40 mg PO DAILY 01/05/21 01/05/21 Prednisone(Dose Unknown) 1 tab PO DIRECTED 01/05/21 01/05/21 Previous Rx's Medication Instructions Recorded Metoclopramide [Reglan] 10 mg PO TID PRN #15 tab 12/06/20 Allergies Allergy/AdvReac Type Severity Reaction Status Date / Time No Known Allergies Allergy Verified 07/06/22 08:00 Review of Systems ROS Statement: Those systems with pertinent positive or pertinent negative responses have been documented in the HPI. ROS Other: All systems not noted in ROS Statement are negative. Past Medical History Past Medical History: Blood Disorder, Diabetes Mellitus, Hypertension Additional Past Medical History / Comment(s): IRON DEFICIENCY ANEMIA. History of Any Multi-Drug Resistant Organisms: None Reported Past Surgical History: Cholecystectomy Additional Past Surgical History / Comment(s): KIDNEY STONE REMOVAL FROM RIGHT URETER. Past Anesthesia/Blood Transfusion Reactions: No Reported Reaction Past Psychological History: No Psychological Hx Reported Smoking Status: Never smoker Past Alcohol Use History: Rare Past Drug Use History: None Reported - Past Family History Mother Family Medical History: No Reported History Father Family Medical History: No Reported History General Exam Limitations: no limitations General appearance: alert, in no apparent distress Head exam: Present: atraumatic Eye exam: Absent: scleral icterus, conjunctival injection ENT exam: Present: other (Sticky mucous membranes) Neck exam: Present: full ROM. Absent: tenderness, meningismus Respiratory exam: Present: normal lung sounds bilaterally. Absent: respiratory distress, wheezes, rales, rhonchi, stridor, chest wall tenderness, accessory muscle use Cardiovascular Exam: Present: tachycardia GI/Abdominal exam: Present: soft. Absent: distended, tenderness, rigid Extremities exam: Present: normal capillary refill. Absent: pedal edema Back exam: Present: normal inspection. Absent: tenderness, CVA tenderness (R), CVA tenderness (L), vertebral tenderness, rash noted Neurological exam: Present: alert, oriented X3 Psychiatric exam: Present: normal affect, normal mood Skin exam: Present: warm, dry, normal color. Absent: cyanosis, diaphoretic, petechiae, pallor, mottled Course Vital Signs 07/06/22 07/06/22 07/06/22 07:57 08:24 09:33 Temperature 98.3 F Pulse Rate 122 H 112 H 92 Respiratory 18 20 18 Rate Blood Pressure 132/83 127/84 O2 Sat by Pulse 98 98 97 Oximetry EKG Findings - EKG Results: EKG: sinus rhythm (Sinus tachycardia ; Ventricular rate 107, SC interval 0.157, QRS 0.97, QTC 0.404; left axis deviation; compared to old 08/06/20) Medical Decision Making - Medical Decision Making Nonsmoker history of diabetes, hypertension, and deficiency anemia, morbid obesity, obstructive sleep apnea Stress echo performed by Dr. Ontiveros 08/07/2020, normal Heart score low Chest x-ray interpreted by me shows no evidence of focal consolidation, trachea midline, heart normal size. Radiologist interpretation mild asymmetric right lung inflation compared to the left correlate with air trapping in the setting of asthma no evidence of infiltrate. Troponin negative. EKG shows normal acute changes. Electrolytes are un remarkable. Vital signs are stable She'll be discharged home directed to follow up with her primary care doctor. Patient and mother agreeable to this plan of care. Case discussed with Dr. Patel Was pt. sent in by a medical professional or institution? @ -No Did you speak to anyone other than the patient for history? @ -Mother Did you review nursing and triage notes? @ -Yes I agree Were old charts reviewed? @ -Yes, old EKG and stress echo Differential Diagnosis? @ -Differential Chest Pain: Stable Angina, Unstable Angina, STEMI, NSTEMI Aortic Dissection, Pneumothorax, Musculoskeletal, Esophageal Spasm GERD, Cholecystitis, Pancreatitis, Zoster, this is not meant to be an all-inclusive list. EKG interpreted by me (3pts min.)? @ -Yes as above X-rays interpreted by me (1pt min.)? @ -Yes as above What testing was considered but not performed? (CT, X-rays, U/S, labs)? Why? @none What meds were considered but not given? Why? @ -None Did you discuss the management of the patient with other professionals? @ -No Did you reconcile home meds? @ -No Was smoking cessation discussed for >3mins.? @ -Not applicable Was critical care preformed (if so, how long)? @ -No Were there social determinants of health that impacted care today? How? (Homelessness, low income, unemployed, alcoholism, drug addiction, transportation, low edu. Level, literacy, decrease access to med. care, fpc, rehab)? @ -None Was there de-escalation of care discussed even if they declined? (Discuss DNR or withdrawal of care, Hospice)? @ -No What co-morbidities impacted this encounter? (DM, HTN, Smoking, COPD, CAD, Cancer, CVA, Hep., AIDS, mental health diagnosis, sleep apnea, morbid obesity)? @ -Diabetes, hypertension, morbid obesity, obstructive sleep apnea Was patient admitted / discharged? @ -Discharged Undiagnosed new problem with uncertain prognosis? @ -[none] Drug Therapy requiring intensive monitoring for toxicity (Heparin, Nitro, Insulin, Cardizem)? @ -No Were any procedures done? @ -None Diagnosis/symptom? @ -Atypical chest pain Acute, or Chronic, or Acute on Chronic? @ -Acute Uncomplicated (without systemic symptoms) or Complicated (systemic symptoms)? @ -[default] Side effects of treatment? @ -[none] Exacerbation, Progression, or Severe Exacerbation] @ -[no] Poses a threat to life or bodily function? @ -[no] - Lab Data Result diagrams: 07/06/22 08:22 07/06/22 08:22 Lab Results 07/06/22 07/06/22 07/06/22 Range/Units 08:22 08:22 08:22 WBC 11.4 H (3.8-10.6) k/uL RBC 5.30 (3.80-5.40) m/uL Hgb 14.8 (11.4-16.0) gm/dL Hct 43.6 (34.0-46.0) % MCV 82.4 (80.0-100.0) fL MCH 28.0 (25.0-35.0) pg MCHC 33.9 (31.0-37.0) g/dL RDW 13.8 (11.5-15.5) % Plt Count 347 (150-450) k/uL MPV 7.6 Neutrophils % 71 % Lymphocytes % 22 % Monocytes % 3 % Eosinophils % 1 % Basophils % 0 % Neutrophils # 8.1 H (1.3-7.7) k/uL Lymphocytes # 2.5 (1.0-4.8) k/uL Monocytes # 0.4 (0-1.0) k/uL Eosinophils # 0.2 (0-0.7) k/uL Basophils # 0.1 (0-0.2) k/uL PT 10.2 (9.0-12.0) sec INR 1.0 (<1.2) APTT 22.4 (22.0-30.0) sec Sodium 137 (137-145) mmol/L Potassium 3.7 (3.5-5.1) mmol/L Chloride 99 (98-107) mmol/L Carbon Dioxide 26 (22-30) mmol/L Anion Gap 12 mmol/L BUN 13 (7-17) mg/dL Creatinine 0.62 (0.52-1.04) mg/dL Est GFR (CKD-EPI)AfAm >90 (>60 ml/min/1.73 sqM) Est GFR (CKD-EPI)NonAf >90 (>60 ml/min/1.73 sqM) Glucose 171 H (74-99) mg/dL Calcium 9.2 (8.4-10.2) mg/dL Magnesium 1.8 (1.6-2.3) mg/dL Total Bilirubin 1.3 (0.2-1.3) mg/dL AST 24 (14-36) U/L ALT 29 (4-34) U/L Alkaline Phosphatase 59 (38-126) U/L Troponin I (0.000-0.034) ng/mL Total Protein 7.1 (6.3-8.2) g/dL Albumin 4.2 (3.5-5.0) g/dL 07/06/22 Range/Units 08:22 WBC (3.8-10.6) k/uL RBC (3.80-5.40) m/uL Hgb (11.4-16.0) gm/dL Hct (34.0-46.0) % MCV (80.0-100.0) fL MCH (25.0-35.0) pg MCHC (31.0-37.0) g/dL RDW (11.5-15.5) % Plt Count (150-450) k/uL MPV Neutrophils % % Lymphocytes % % Monocytes % % Eosinophils % % Basophils % % Neutrophils # (1.3-7.7) k/uL Lymphocytes # (1.0-4.8) k/uL Monocytes # (0-1.0) k/uL Eosinophils # (0-0.7) k/uL Basophils # (0-0.2) k/uL PT (9.0-12.0) sec INR (<1.2) APTT (22.0-30.0) sec Sodium (137-145) mmol/L Potassium (3.5-5.1) mmol/L Chloride (98-107) mmol/L Carbon Dioxide (22-30) mmol/L Anion Gap mmol/L BUN (7-17) mg/dL Creatinine (0.52-1.04) mg/dL Est GFR (CKD-EPI)AfAm (>60 ml/min/1.73 sqM) Est GFR (CKD-EPI)NonAf (>60 ml/min/1.73 sqM) Glucose (74-99) mg/dL Calcium (8.4-10.2) mg/dL Magnesium (1.6-2.3) mg/dL Total Bilirubin (0.2-1.3) mg/dL AST (14-36) U/L ALT (4-34) U/L Alkaline Phosphatase (38-126) U/L Troponin I <0.012 (0.000-0.034) ng/mL Total Protein (6.3-8.2) g/dL Albumin (3.5-5.0) g/dL Disposition Clinical Impression: Atypical chest pain Disposition: HOME SELF-CARE Condition: Good Instructions (If sedation given, give patient instructions): Chest Pain (ED) Additional Instructions: Increase your fluid intake. Follow-up with the primary care doctor this week. Return to the emergency room with any new or concerning symptoms. Is patient prescribed a controlled substance at d/c from ED?: No Referrals: Jaswinder Rivera MD [Primary Care Provider] - 1-2 days Time of Disposition: 09:26
[2022-07-06] MEDS ORDERED: ASPIRIN 81 MG PO STA (08:37)
[2022-07-06 08:40] LABS: Basophils # (A) 0.1 k/uL (0-0.2); Basophils % (A) 0 %; Eosinophils # (A) 0.2 k/uL (0-0.7); Eosinophils % (A) 1 %; HCT 43.6 % (34.0-46.0); HGB 14.8 gm/dL (11.4-16.0); Lymphocytes # (A) 2.5 k/uL (1.0-4.8); Lymphocytes % (A) 22 %; MCHC 33.9 g/dL (31.0-37.0); MCV 82.4 fL (80.0-100.0); Mean Platelet Volume 7.6; Monocytes # (A) 0.4 k/uL (0-1.0); Monocytes % (A) 3 %; Neutrophils # (A) 8.1 k/uL (1.3-7.7); Neutrophils % (A) 71 %; Platelet Count 347 k/uL (150-450); RDW 13.8 % (11.5-15.5); WBC 11.4 k/uL (3.8-10.6)
[2022-07-06 08:59] LABS: ALT 29 U/L (4-34); AST 24 U/L (14-36); African American GFR (CKD) >90 (>60 ml/min/1.73 sqM); Albumin 4.2 g/dL (3.5-5.0); Alkaline Phosphatase 59 U/L (38-126); Anion Gap 12 mmol/L; Blood Urea Nitrogen 13 mg/dL (7-17); Calcium 9.2 mg/dL (8.4-10.2); Carbon Dioxide 26 mmol/L (22-30); Chloride 99 mmol/L (98-107); Glucose 171 mg/dL (74-99); Magnesium 1.8 mg/dL (1.6-2.3); Non-African American GFR(CKD) >90 (>60 ml/min/1.73 sqM); Potassium 3.7 mmol/L (3.5-5.1); Sodium 137 mmol/L (137-145); Total Bilirubin 1.3 mg/dL (0.2-1.3); Total Protein 7.1 g/dL (6.3-8.2)
[2022-07-06 09:01] LABS: Partial Thromboplastin Time 22.4 sec (22.0-30.0); Prothrombin Time 10.2 sec (9.0-12.0)
--- NOTE | 2022-07-06 09:07 | XR ---
EXAMINATION TYPE: XR chest 2V DATE OF EXAM: 07/06/2022 8:56 AM COMPARISON: Chest radiographs from 08/06/2020 TECHNIQUE: XR chest 2V Frontal and lateral views of the chest. CLINICAL INDICATION:Female, 32 years old with history of Chest Pain; FINDINGS: Lungs/Pleura: Somewhat asymmetrically increase inflation of the right lung compared to left, felt to be similar to prior 08/06/2020. There is no evidence of pleural effusion, focal consolidation, or pneu mothorax. Pulmonary vascularity: Unremarkable. Heart/mediastinum: Cardiomediastinal silhouette is unremarkable. Musculoskeletal: No acute osseous pathology. IMPRESSION: Mild asymmetric right lung inflation compared to left correlate for air trapping in the setting of as thma.
[2022-07-06 09:34] VITALS: BP 127/84; PULSE 92; RESP 18
== END 2022-07-06 09:36 | disposition home or self-care (01) ==
LOC: EC 07:56
DX: R07.89 Other chest pain (principal); E11.9 Type 2 diabetes mellitus without complications; I10 Essential (primary) hypertension; Z79.84 Long term (current) use of oral hypoglycemic drugs; Z79.899 Other long term (current) drug therapy
CPT/HCPCS: 36415; 71046; 80053; 83735; 84484; 85025; 85610; 85730; 93005; 96360; 99285

== ENCOUNTER → 2022-11-30 | Outpatient (CLI) | payer OTHER ==
[2022-11-30 16:22] LABS: ALT 18 U/L (8-44); AST 15 U/L (13-35); Albumin 3.9 d/dL (3.8-4.9); Alkaline Phosphatase 52 U/L (41-126); Bilirubin, Conjugated <0.20 mg/dL (0.20-0.40); Bilirubin,Unconjugated >0.40 mg/dL (0.20-1.00); Blood Urea Nitrogen 15.3 mg/dL (9.0-27.0); Calcium 9.8 mg/dL (8.7-10.3); Carbon Dioxide 23.7 mmol/L (21.6-31.8); Chloride 103 mmol/L (96-109); Chol/HDL Ratio 3.39 Ratio; Globulin 2.6 d/dL (1.6-3.3); Glucose 166 mg/dL (70-110); LDL Cholesterol,Calculated 50.1 mg/dL (0.0-131.0); Potassium 4.4 mmol/L (3.5-5.5); Sodium 138 mmol/L (135-145); Total Bilirubin 0.6 mg/dL (0.3-1.2); Total Protein 6.5 d/dL (6.2-8.2)
[2022-11-30 19:21] LABS: HCT 43.4 % (37.2-46.3); HGB 13.5 d/dL (12.0-15.0); MCH 27.2 pg (27.0-32.0); MCHC 31.1 d/dL (32.0-37.0); MCV 87.3 FL (80.0-97.0); Mean Platelet Volume 10.6 FL (9.5-12.2); NRBC Per 100 WBC 0 X 10*3/uL (0.00-0.01); Platelet Count 328 X 10*3/uL (140-440); RBC 4.97 X 10*6/uL (4.10-5.20); RDW 14.3 % (11.5-14.5); WBC 13.38 X 10*3/uL (4.50-10.00)
== END | disposition home or self-care (01) ==
LOC: LABWHC1 09:31
PROVIDERS: ATTEND Family Medicine
DX: E11.69 Type 2 diabetes mellitus with other specified complication (principal); K76.0 Fatty (change of) liver, not elsewhere classified
CPT/HCPCS: 36415; 80053; 80061; 82043; 82248; 82570; 83036; 85027

== ENCOUNTER → 2022-12-05 | Outpatient (CLI) | payer OTHER ==
--- NOTE | 2022-12-05 16:38 | US ---
EXAMINATION TYPE: US kidneys/renal and bladder DATE OF EXAM: 12/05/2022 COMPARISON: Multiple renal ultrasounds most recently 12/10/2021 CLINICAL INDICATION: Female, 32 years old with history of N20.0 CALCULUS OF KIDNEY; known stones, no symptoms, morbidly obese EXAM MEASUREMENTS: Right Kidney: 15.5 x 6.1 x 5.7 cm Left Kidney: 14.4 x 6.1 x 5.9 cm Right Kidney: 1.5 x 2.0cm cluster of stones Left Kidney: No hydronephrosis or masses seen Bladder: wnl There is no evidence for hydronephrosis at this point in time. Cortical measure junction is maintain ed bilaterally. There are clusters stones identified within the mid right kidney measuring 1.5 x 2.0 cm with shadowing demonstrated. No masses are identified. The urinary bladder is anechoic. IMPRESSION: 1. No hydronephrosis. 2. Cluster of stones identified within the mid right kidney measuring 1.5 x 2.0 cm.
== END | disposition home or self-care (01) ==
LOC: RADUSWWP 16:09
PROVIDERS: ATTEND Surgery
DX: N20.0 Calculus of kidney (principal)
CPT/HCPCS: 76770

== ENCOUNTER → 2023-01-25 | Outpatient (CLI) | payer OTHER ==
[2023-01-25 16:39] LABS: Basophils # (A) 0.06 X 10*3/uL (0.00-0.10); Basophils % (A) 0.5 %; Eosinophils # (A) 0.25 X 10*3/uL (0.04-0.35); Eosinophils % (A) 2.2 %; HCT 45.5 % (37.2-46.3); HGB 14.4 d/dL (12.0-15.0); Lymphocytes # (A) 3.09 X 10*3/uL (0.90-5.00); Lymphocytes % (A) 26.7 %; MCH 28.1 pg (27.0-32.0); MCHC 31.6 d/dL (32.0-37.0); MCV 88.7 FL (80.0-97.0); Mean Platelet Volume 10.6 FL (9.5-12.2); Monocytes # (A) 0.79 X 10*3/uL (0.20-1.00); Monocytes % (A) 6.8 %; NRBC Per 100 WBC 0 X 10*3/uL (0.00-0.01); Neutrophils # (A) 7.35 X 10*3/uL (1.80-7.70); Neutrophils % (A) 63.5 %; Platelet Count 347 X 10*3/uL (140-440); RBC 5.13 X 10*6/uL (4.10-5.20); RDW 13.2 % (11.5-14.5); WBC 11.57 X 10*3/uL (4.50-10.00)
[2023-01-25 17:11] LABS: % Iron Saturation 20.73 (12.00-45.00); ALT 16 U/L (8-44); AST 17 U/L (13-35); Albumin 4.2 d/dL (3.8-4.9); Albumin/Globulin Ratio 1.56 Ratio (1.60-3.17); Alkaline Phosphatase 54 U/L (41-126); BUN/Creat Ratio 24.33 Ratio (12.00-20.00); Blood Urea Nitrogen 14.6 mg/dL (9.0-27.0); Calcium 9.9 mg/dL (8.7-10.3); Carbon Dioxide 22.8 mmol/L (21.6-31.8); Chloride 102 mmol/L (96-109); Globulin 2.7 d/dL (1.6-3.3); Glucose 167 mg/dL (70-110); Iron 68 UG/DL (50-170); Phosphorus 3.8 mg/dL (2.4-5.1); Potassium 4.4 mmol/L (3.5-5.5); Sodium 138 mmol/L (135-145); Total Bilirubin 0.5 mg/dL (0.3-1.2); Total Iron Binding Capacity 328 UG/DL (228-460); Total Protein 6.9 d/dL (6.2-8.2); Uric Acid 4.5 mg/dL (2.9-7.7)
[2023-01-25 17:33] LABS: Appearance,Urine Clear (Clear); Bacteria,Urine Trace; Bilirubin,Urine Negative (Negative); Blood,Urine Negative (Negative); Color,Urine Yellow (Yellow); Ketones,Urine Negative (Negative); Nitrite,Urine Negative (Negative); Specific Gravity,Urine >1.035 (1.001-1.030); Urobilinogen,Urine 0.2
[2023-01-25 17:57] LABS: Urine Creatinine 80.5 mg/dL (28.0-217.0)
== END | disposition home or self-care (01) ==
LOC: LABWHC1 09:44
PROVIDERS: ATTEND Nurse Practitioner Family
DX: N18.1 Chronic kidney disease, stage 1 (principal)
CPT/HCPCS: 36415; 80053; 81001; 82043; 82306; 82570; 82728; 83540; 83550; 83735; 83970; 84100; 84550; 85025

== ENCOUNTER → 2023-02-07 | Outpatient (CLI) | payer OTHER ==
--- NOTE | 2023-02-07 10:20 | CT ---
EXAMINATION TYPE: CT abdomen pelvis wo con CT DLP: 3121.5 mGycm, Automated exposure control for dose reduction was used. DATE OF EXAM: 02/07/2023 9:48 AM COMPARISON: CT abdomen pelvis most recent from 12/02/2020 CLINICAL INDICATION:Female, 32 years old with history of N20.0 CALCULUS OF KIDNEY; rt renal stones TECHNIQUE: Axial CT of the abdomen and pelvis. Sagittal and coronal reformats were created on a MPV workstation. Contrast used: mL of , (none if empty) Oral contrast used: without Oral Contrast (none if empty) FINDINGS: LOWER CHEST: Unremarkable ABDOMEN LIVER: Diffusely hypoattenuating parenchyma. GALLBLADDER AND BILE DUCTS: Gallbladder appears surgically absent. PANCREAS: Unremarkable. SPLEEN: Unremarkable. ADRENAL GLANDS: Unremarkable. KIDNEYS AND URETERS: Multiple right renal calculi are present measuring up to 11 x 6 mm. No left bob l calculi. No evidence for obstructive uropathy. PELVIS BLADDER: Unremarkable REPRODUCTIVE: Unremarkable. ABDOMEN & PELVIS STOMACH AND BOWEL: No evidence of bowel obstruction. The appendix is normal. PERITONEUM/RETROPERITONEUM: No evidence of pneumoperitoneum or free fluid. VASCULATURE: No evidence of aortic aneurysm. MUSCULOSKELETAL: No acute osseous abnormalities. Moderate disc degeneration changes are present throu ghout the thoracolumbar spine. Worse at L4-L5 with at least moderate canal stenosis secondary to oste ophyte formation and facet joint arthropathy. Additional L1-L2 osteophyte formation with at least mod erate spinal canal stenosis. LYMPH NODES: No gross evidence for lymphadenopathy. SOFT TISSUE/ABDOMINAL WALL: Unremarkable IMPRESSION: 1. Multiple nonobstructing right renal calculi. No evidence for obstructive uropathy. 2. Hepatic steatosis. 3. Moderate multilevel disc degeneration changes worse at L4-5 with at least moderate spinal canal s tenosis.
== END | disposition home or self-care (01) ==
LOC: RADCTMAIN 08:52
PROVIDERS: ATTEND Surgery
DX: N20.0 Calculus of kidney (principal); K76.0 Fatty (change of) liver, not elsewhere classified; M51.36 Other intervertebral disc degeneration, lumbar region; M48.061 Spinal stenosis, lumbar region without neurogenic claudication
CPT/HCPCS: 74176

== ENCOUNTER → 2023-02-13 | Outpatient (CLI) | payer OTHER ==
--- NOTE | 2023-02-13 13:15 | XR ---
EXAMINATION TYPE: XR chest 2V DATE OF EXAM: 02/13/2023 COMPARISON: 1123 INDICATION: Tachycardia TECHNIQUE: Frontal and lateral views of the chest are obtained. FINDINGS: The heart size is normal. The pulmonary vasculature is normal. The lungs are clear. IMPRESSION: 1. No acute pulmonary process.
== END | disposition home or self-care (01) ==
LOC: RADXRMAIN 12:50
PROVIDERS: ATTEND Family Medicine
DX: R00.0 Tachycardia, unspecified (principal)
CPT/HCPCS: 71046

== ENCOUNTER → 2023-02-22 | Outpatient (CLI) | payer OTHER ==
--- NOTE | 2023-02-22 14:19 | CA ---
Transthoracic Echo Report Name: Simeon Mienr Age: 33 Gender: F : 1990 Exam Date: 02/22/2023 12:34 Exam Location: [facility] Ht (in): 67 Wt (lb): 367 Ordering Physician: Jaswinder Rivear MD Attending/Referring Phys: [id number] Windchill Administrator [facility] Procedure CPT: Indications: I10 ESSENTIAL HTN Cardiac Hx: Technical Quality: Technically difficult study Contrast 1: Total Dose (mL): Contrast 2: Total Dose (mL): MEASUREMENTS (Male / Female) Normal Values 2D ECHO LV Diastolic Diameter PLAX 4.0 cm 4.2 - 5.9 / 3.9 - 5.3 cm LV Systolic Diameter PLAX 3.0 cm IVS Diastolic Thickness 0.9 cm 0.6 - 1.0 / 0.6 - 0.9 cm LVPW Diastolic Thickness 1.0 cm 0.6 - 1.0 / 0.6 - 0.9 cm LV Relative Wall Thickness 0.5 Ascending Aorta Diameter 2.8 cm M-MODE Aortic Root Diameter MM 3.0 cm LA Systolic Diameter MM 3.3 cm LA Ao Ratio MM 1.1 AV Cusp Separation MM 2.2 cm DOPPLER AV Peak Velocity 133.7 cm/s AV Peak Gradient 7.1 mmHg AV Mean Velocity 96.6 cm/s AV Mean Gradient 4.1 mmHg AV Velocity Time Integral 22.3 cm LVOT Peak Velocity 111.2 cm/s LVOT Peak Gradient 4.9 mmHg LVOT Velocity Time Integral 18.1 cm Mitral E Point Velocity 61.8 cm/s Mitral A Point Velocity 53.3 cm/s Mitral E to A Ratio 1.2 MV Deceleration Time 279.1 ms LV E' Lateral Velocity 10.4 cm/s Mitral E to LV E' Lateral Ratio 6.0 LV E' Septal Velocity 12.5 cm/s Mitral E to LV E' Septal Ratio 5.0 Right Atrial Pressure 8.0 mmHg FINDINGS Left Ventricle Normal Left ventricular size, wall thickness, systolic function with no obvious regional wall motion abnormalities. Left ventricular ejection fraction is estimated at 50-55%. Right Ventricle Right ventricle not well visualized. Right Atrium Normal right atrial size. Left Atrium Normal left atrial size. Mitral Valve Structurally normal mitral valve. No mitral regurgitation. Aortic Valve Aortic valve not well visualized. No aortic regurgitation. Tricuspid Valve Tricuspid valve not well visualized. No tricuspid regurgitation. Pulmonic Valve Pulmonic valve not well visualized. No pulmonic regurgitation. Pericardium No pericardial effusion. Echo free space anterior to the right ventricle likely represents a fat pad. Aorta Normal size aortic root and proximal ascending aorta. CONCLUSIONS Technically difficult study. The endocardium is poorly visualized. It's hard to comment on the ejection fraction Previewed by: Dr. Eagle Larsen MD (Electronically Signed) Final Date: 22 February 2023 14:18
== END | disposition home or self-care (01) ==
LOC: RADECHMAIN 12:27
PROVIDERS: ATTEND Family Medicine
DX: I10 Essential (primary) hypertension (principal)
CPT/HCPCS: 93306

== ENCOUNTER → 2023-02-23 | Outpatient (CLI) | payer OTHER ==
--- NOTE | 2023-03-30 00:11 | EM ---
EVENT MONITOR INDICATION: Tachycardia. FINDINGS: This 30-day event monitor showed sinus rhythm with episodes of sinus tachycardia. The maximum heart rate was around 163 beats per minute. No significant atrial or ventricular tachyarrhythmias have been noted. CONCLUSION: This event monitor shows sinus rhythm with sinus tachycardia. MMODL / IJN: [id number] /
== END | disposition home or self-care (01) ==
LOC: RADECHMAIN 12:02
PROVIDERS: ATTEND Family Medicine
DX: R00.0 Tachycardia, unspecified (principal)
CPT/HCPCS: 93270

== ENCOUNTER → 2023-03-02 | Outpatient (CLI) | payer OTHER ==
[2023-03-02 16:21] LABS: Basophils # (A) 0.04 X 10*3/uL (0.00-0.10); Basophils % (A) 0.4 %; Eosinophils # (A) 0.16 X 10*3/uL (0.04-0.35); Eosinophils % (A) 1.4 %; HCT 43.7 % (37.2-46.3); HGB 14.3 d/dL (12.0-15.0); MCH 27.4 pg (27.0-32.0); MCHC 32.7 d/dL (32.0-37.0); MCV 83.7 FL (80.0-97.0); Mean Platelet Volume 10.1 FL (9.5-12.2); Monocytes # (A) 0.61 X 10*3/uL (0.20-1.00); Monocytes % (A) 5.4 %; NRBC Per 100 WBC 0 X 10*3/uL (0.00-0.01); Neutrophils # (A) 7.71 X 10*3/uL (1.80-7.70); Neutrophils % (A) 68.5 %; Platelet Count 365 X 10*3/uL (140-440); RBC 5.22 X 10*6/uL (4.10-5.20); RDW 13.2 % (11.5-14.5); WBC 11.25 X 10*3/uL (4.50-10.00)
[2023-03-02 16:29] LABS: Blood Urea Nitrogen 10.5 mg/dL (9.0-27.0); Chloride 98 mmol/L (96-109); Chol/HDL Ratio 3.76 Ratio; Glucose 139 mg/dL (70-110); LDL Cholesterol,Calculated 46.8 mg/dL (0.0-131.0); Potassium 4.2 mmol/L (3.5-5.5); Sodium 139 mmol/L (135-145)
[2023-03-02 16:30] LABS: ALT 26 U/L (8-44); AST 22 U/L (13-35); Albumin 4.4 d/dL (3.8-4.9); Albumin/Globulin Ratio 1.69 Ratio (1.60-3.17); Alkaline Phosphatase 52 U/L (41-126); Bilirubin, Conjugated 0.29 mg/dL (0.20-0.40); Bilirubin,Unconjugated 0.61 mg/dL (0.20-1.00); Calcium 9.7 mg/dL (8.7-10.3); Carbon Dioxide 26.3 mmol/L (21.6-31.8); Globulin 2.6 d/dL (1.6-3.3); Total Bilirubin 0.9 mg/dL (0.3-1.2)
== END | disposition home or self-care (01) ==
LOC: LABWHC1 08:01
PROVIDERS: ATTEND Family Medicine
DX: E11.22 Type 2 diabetes mellitus with diabetic chronic kidney disease (principal); N18.9 Chronic kidney disease, unspecified; R94.6 Abnormal results of thyroid function studies
CPT/HCPCS: 36415; 80053; 80061; 82248; 83036; 85025

== ENCOUNTER → 2023-05-30 | Outpatient (CLI) | payer OTHER ==
[2023-05-30 09:55] LABS: Basophils # (A) 0.1 k/uL (0-0.2); Basophils % (A) 1 %; Eosinophils # (A) 0.2 k/uL (0-0.7); Eosinophils % (A) 2 %; HCT 46.8 % (34.0-46.0); Hypochromasia Slight; Lymphocytes % (A) 23 %; MCH 28.8 pg (25.0-35.0); MCV 89.9 fL (80.0-100.0); Mean Platelet Volume 7.6; Monocytes # (A) 0.7 k/uL (0-1.0); Monocytes % (A) 5 %; Neutrophils # (A) 9.1 k/uL (1.3-7.7); Neutrophils % (A) 68 %; Platelet Count 367 k/uL (150-450); RDW 13.1 % (11.5-15.5); WBC 13.2 k/uL (3.8-10.6)
[2023-05-30 18:42] LABS: ALT 20 U/L (8-44); AST 15 U/L (13-35); Albumin 4.2 g/dL (3.8-4.9); Albumin/Globulin Ratio 1.62 Ratio (1.60-3.17); Alkaline Phosphatase 63 U/L (41-126); Bilirubin, Conjugated 0.24 mg/dL (0.20-0.40); Bilirubin,Unconjugated 0.66 mg/dL (0.20-1.00); Calcium 10.1 mg/dL (8.7-10.3); Carbon Dioxide 23.3 mmol/L (21.6-31.8); Chloride 100 mmol/L (96-109); Chol/HDL Ratio 2.89 Ratio; Globulin 2.6 g/dL (1.6-3.3); Glucose 150 mg/dL (70-110); LDL Cholesterol,Calculated 40.2 mg/dL (0.0-131.0); Potassium 4.4 mmol/L (3.5-5.5); Sodium 141 mmol/L (135-145); Total Bilirubin 0.9 mg/dL (0.3-1.2); Total Protein 6.8 g/dL (6.2-8.2)
== END | disposition home or self-care (01) ==
LOC: LABWHC1 08:22
PROVIDERS: ATTEND Internal Medicine Gastroenterology
DX: E11.22 Type 2 diabetes mellitus with diabetic chronic kidney disease (principal); N18.9 Chronic kidney disease, unspecified
CPT/HCPCS: 36415; 80053; 80061; 82248; 83036; 84443; 85025

== ENCOUNTER → 2023-07-25 | Outpatient (CLI) | payer OTHER ==
[2023-07-25 13:03] LABS: HGB 13.8 g/dL (12.0-15.0); MCH 27.4 pg (27.0-32.0); MCHC 32.9 g/dL (32.0-37.0); MCV 83.3 FL (80.0-97.0); Mean Platelet Volume 10.1 FL (9.5-12.2); NRBC Per 100 WBC 0 X 10*3/uL (0.00-0.01); Platelet Count 395 X 10*3/uL (140-440); RBC 5.04 X 10*6/uL (4.10-5.20); RDW 13.5 % (11.5-14.5); WBC 13.83 X 10*3/uL (4.50-10.00)
[2023-07-25 13:56] LABS: % Iron Saturation 23.57 (12.00-45.00); ALT 13 U/L (8-44); AST 12 U/L (13-35); Albumin 4.1 g/dL (3.8-4.9); Albumin/Globulin Ratio 1.58 Ratio (1.60-3.17); Alkaline Phosphatase 63 U/L (41-126); BUN/Creat Ratio 20.71 Ratio (12.00-20.00); Blood Urea Nitrogen 14.5 mg/dL (9.0-27.0); Calcium 10.1 mg/dL (8.7-10.3); Carbon Dioxide 22.4 mmol/L (21.6-31.8); Chloride 110 mmol/L (96-109); Globulin 2.6 g/dL (1.6-3.3); Glucose 157 mg/dL (70-110); Iron 62 UG/DL (50-170); Magnesium 1.9 mg/dL (1.5-2.4); Phosphorus 4.6 mg/dL (2.4-5.1); Potassium 4.4 mmol/L (3.5-5.5); Sodium 148 mmol/L (135-145); Total Bilirubin 1.2 mg/dL (0.3-1.2); Total Iron Binding Capacity 263 UG/DL (228-460); Total Protein 6.7 g/dL (6.2-8.2); Uric Acid 5.7 mg/dL (2.9-7.7)
[2023-07-25 14:11] LABS: Appearance,Urine Clear (Clear); Bacteria,Urine 1+ (None Seen); Bilirubin,Urine Negative (Negative); Blood,Urine Trace (Negative); Color,Urine Yellow (Yellow); Ketones,Urine Trace (Negative); Nitrite,Urine Negative (Negative); Specific Gravity,Urine 1.034 (1.001-1.030); Urobilinogen,Urine 0.2; Yeast (UA) Present (None Seen)
== END | disposition home or self-care (01) ==
LOC: LABWHC1 08:29
PROVIDERS: ATTEND Nurse Practitioner Family
DX: N18.1 Chronic kidney disease, stage 1 (principal); D63.1 Anemia in chronic kidney disease; N39.0 Urinary tract infection, site not specified; E55.9 Vitamin D deficiency, unspecified; M10.9 Gout, unspecified; R80.9 Proteinuria, unspecified
CPT/HCPCS: 36415; 80053; 81001; 82043; 82306; 82570; 82728; 83540; 83550; 83735; 83970; 84100; 84550; 85027

== ENCOUNTER → 2023-09-07 | Outpatient (CLI) | payer OTHER ==
--- NOTE | 2023-09-07 11:27 | P.PN ---
Subjective DATE: 09/07/2023 FOLLOW UP VISIT. Patient with obstructive sleep apnea hypopnea syndrome return to sleep center for follow-up visit. Information from previous visit have been reviewed. Patient is using PAP equipment every night for the whole night, getting PAP supplies in time. The patient does not have significant problems with the mask, PAP unit and humidification. [place] sleepiness scale is 6, which is normal. I checked information from PAP unit. PAP unit pressure 10 cm H2O. Usage is 100% for more then 4 hours, average 9.6 hours per night. Leak is perfect 1 l/m. Apnea Hypopnea Index is also perfect 0.1. MEDICATIONS:1. Metformin 1000 mg twice a day 2. Lisinopril 20 mg once a day 3. Mounjaro 4. Jardiance 5. Chlorthalidone 25 mg once a day 6. Atorvastatin 40 mg once a day During physical exam: GENERAL: A pleasant patient without any distress. VITAL SIGNS: Please see below. HEENT: PERRLA, EOMI.low position of soft palate, Mallapati 3 . NECK: Supple. No JVD. LUNGS: Clear to percussion and to auscultation. Good air exchange. No wheezing or rhonchi. HEART: S1, S2 regular. ABDOMEN: Soft and nontender, slightly obese EXTREMITIES: No clubbing or cyanosis. BILINGUAL BRANCH MANAGER: Awake, alert, and oriented x3. No focal deficit. Impressions: 1. Obstructive sleep apnea-hypopnea syndrome. Patient demonstrated great compliance with treatment, benefiting from treatment. 2. Obesity, patient lost 31 pounds comparing with the previous visit, present body mass index 53.3. 3. Diabetes mellitus. 4. Status post surgical treatment for kidney stone. 5. History of iron deficiency. 6. Status post cholecystectomy. Plan: 1. Continue using PAP equipment every night for the whole night. 2. To change air filter at least 1-2 times per month. 3. PAP unit should stay lower then position of the head. 4. Advised patient to remove all remaining water from humidifier canister daily and make it dry after each usage. Refill canister with fresh distilled water before each usage. 5. Sleep hygiene with regular time in bed for at least 8 hours. 6. Precautions related to driving. No driving if feel any sleepiness. 7. I will maintain prescription for PAP supplies including mask, tube, filters. 8. Watching and continue losing weight. 9. Follow up visit in 6 months or earlier if patient has any problems. Thank you very much for allowing me to participate in the management of your patient. Chan Gregorio MD, PhD, FAASM. Diplomat of [place] [employer], Sleep Medicine Board by [place] [employer] [facility] [place] Objective - Vital Signs Vital signs: Vital Signs Temp 98.9 F 09/07/23 11:13 Pulse 71 09/07/23 11:13 Resp 12 09/07/23 11:13 BP 117/77 09/07/23 11:13 Pulse Ox 99 09/07/23 11:13 FiO2 Intake & Output 09/06/23 09/07/23 09/07/23 18:59 06:59 18:59 Weight 157.85 kg
[2023-09-07 11:43] VITALS: BP 117/77; PULSE 71; RESP 12; TEMP 98.9
== END ==
LOC: 3 N SLEEP 10:42
PROVIDERS: ATTEND Internal Medicine
DX: G47.33 Obstructive sleep apnea (adult) (pediatric) (principal); E66.9 Obesity, unspecified; E11.9 Type 2 diabetes mellitus without complications; Z90.49 Acquired absence of other specified parts of digestive tract; Z86.2 Personal history of diseases of the blood and blood-forming organs and certain disorders involving the immune mechanism; Z87.442 Personal history of urinary calculi; Z99.89 Dependence on other enabling machines and devices; Z79.84 Long term (current) use of oral hypoglycemic drugs; Z79.85 Long-term (current) use of injectable non-insulin antidiabetic drugs; Z79.899 Other long term (current) drug therapy; Z68.43 Body mass index [BMI] 50.0-59.9, adult
CPT/HCPCS: 99212

== ENCOUNTER 2023-09-15 21:38 | Emergency (ER) | payer OTHER ==
[2023-09-15 22:14] VITALS: RESP 18; TEMP 98.1
--- NOTE | 2023-09-15 22:17 | ED ---
Abdominal Pain HPI - General Chief Complaint: Abdominal Pain Stated Complaint: abd pain abnormal bowel movement Time Seen by Provider: 09/15/23 21:50 Source: patient Mode of arrival: ambulatory Limitations: no limitations - History of Present Illness Initial Comments: 33-year-old female presenting with chief complaint of right-sided abdominal pain. This has been ongoing for about a week but worse tonight. This feels like a sharp pain. She states that laying down alleviates the pain somewhat, no other alleviating or aggravating factors. She was concerned because she had a garcia appearing bowel movement today. She also had a few drops of blood on the toilet paper after wiping. Surgical history includes cholecystectomy. She did have 1 episode of vomiting today. No fevers. No URI-like symptoms. No chest pain or difficulty breathing. No dysuria or hematuria. - Related Data Home Medications Medication Instructions Recorded Confirmed Ferrous Sulfate [Iron (65 MG 325 mg PO DAILY 09/28/18 09/07/23 Elemental)] lisinopriL [Zestril] 20 mg PO DAILY 09/28/18 09/07/23 metFORMIN HCL [Glucophage] 1,000 mg PO BID 09/28/18 09/07/23 Ammonium Lactate Lotion 1 applic TOPICAL HS 08/06/20 09/07/23 [Lac-Hydrin 12% Lotion] Cholecalciferol (Vitamin D3) 125 mcg PO DAILY 08/06/20 09/07/23 [Vitamin D3 (5000 Iu)] Fluticasone Nasal [place] [Flonase 1 spr EA NOSTRIL BID 08/06/20 09/07/23 Nasal [place]] Loratadine [Claritin] 10 mg PO DAILY 08/06/20 09/07/23 Empagliflozin [Jardiance] 10 mg PO DAILY 12/02/20 01/05/21 Atorvastatin [Lipitor] 40 mg PO DAILY 09/07/23 09/07/23 Chlorthalidone 25 mg PO 09/07/23 Lisinopril-Hctz 20-12.5 mg 1 tab PO DAILY 09/07/23 09/07/23 [Zestoretic 20-12.5] Medroxyprogesterone Acetate 150 mg IM 09/07/23 [Depo-Provera] Sodium Bicarbonate Tab 650 mg PO TID 09/07/23 09/07/23 Tirzepatide [Mounjaro] 5 mg SQ 09/07/23 Previous Rx's Medication Instructions Recorded Potassium Chloride ER [K-Dur 20] 20 meq PO DAILY #3 tab 09/16/23 Allergies Allergy/AdvReac Type Severity Reaction Status Date / Time No Known Allergies Allergy Verified 09/15/23 21:49 Review of Systems ROS Statement: Those systems with pertinent positive or pertinent negative responses have been documented in the HPI. ROS Other: All systems not noted in ROS Statement are negative. Past Medical History Past Medical History: Blood Disorder, Diabetes Mellitus, Hypertension Additional Past Medical History / Comment(s): IRON DEFICIENCY ANEMIA. History of Any Multi-Drug Resistant Organisms: None Reported Past Surgical History: Cholecystectomy Additional Past Surgical History / Comment(s): KIDNEY STONE REMOVAL FROM RIGHT URETER. Past Anesthesia/Blood Transfusion Reactions: No Reported Reaction Past Psychological History: No Psychological Hx Reported Smoking Status: Never smoker Past Alcohol Use History: Rare Past Drug Use History: None Reported - Past Family History Mother Family Medical History: No Reported History Father Family Medical History: No Reported History General Exam Limitations: no limitations General appearance: alert, in no apparent distress Head exam: Present: atraumatic, normocephalic Eye exam: Present: normal appearance Neck exam: Present: normal inspection Respiratory exam: Present: normal lung sounds bilaterally. Absent: respiratory distress, wheezes, rales, rhonchi, stridor Cardiovascular Exam: Present: regular rate, normal rhythm, normal heart sounds. Absent: systolic murmur, diastolic murmur, rubs, gallop, clicks GI/Abdominal exam: Present: soft, tenderness. Absent: distended, guarding, rebound, rigid Neurological exam: Present: alert, oriented X3 Psychiatric exam: Present: normal affect, normal mood Skin exam: Present: warm, dry Course Vital Signs 09/15/23 09/16/23 21:45 01:20 Temperature 98.1 F 98.1 F Pulse Rate 114 H 96 Respiratory 18 18 Rate Blood Pressure 123/88 107/63 O2 Sat by Pulse 100 100 Oximetry Medical Decision Making - Medical Decision Making Was pt. sent in by a medical professional or institution (, PA, MANAGEMENT ASSISTANT, urgent care, hospital, or half-way...) When possible be specific @ -No Did you speak to anyone other than the patient for history (EMS, parent, family, police, friend...)? What history was obtained from this source @ -No Did you review nursing and triage notes (agree or disagree)? Why? @ -I reviewed and agree with nursing and triage notes Were old charts reviewed (outside hosp., previous admission, EMS record, old EKG, old radiological studies, urgent care reports/EKG's, half-way records)? Report findings @ -No old charts were reviewed Differential Diagnosis (chest pain, altered mental status, abdominal pain women, abdominal pain men, vaginal bleeding, weakness, fever, dyspnea, syncope, headache, dizziness, GI bleed, back pain, seizure, CVA, palpatations, mental health, musculoskeletal)? @ -MDM Differential Abdominal Pain Women: Appendicitis, Cholecystitis, diverticulosis, ischemic bowel, pancreatitis, hepatitis, UTI, gastroenteritis, AAA, incarcerated hernia, bowel obstruction, constipation, inflammatory bowel, hepatitis, peptic ulcer disease, splenic infarction, perforated viscus, vulvitis, ovarian torsion, PID, kidney stone, placenta abruption... This is not meant to be an all-inclusive list EKG interpreted by me (3pts min.). @ -As above X-rays interpreted by me (1pt min.). @ -None done CT interpreted by me (1pt min.). @ -CT shows no bowel obstruction. No significant new or acute finding is seen to account for the patient's clinical symptoms. U/S interpreted by me (1pt. min.). @ -None done What testing was considered but not performed or refused? (CT, X-rays, U/S, labs)? Why? @ -None What meds were considered but not given or refused? Why? @ -None Did you discuss the management of the patient with other professionals (professionals i.e. , PA, MANAGEMENT ASSISTANT, lab, RT, psych nurse, social work coordinator, donor center technician, teacher, preventive medicine officer, case management coordinator)? Give summary @ -No Was smoking cessation discussed for >3mins.? @ -No Was critical care preformed (if so, how long)? @ -No Were there social determinants of health that impacted care today? How? (Homelessness, low income, unemployed, alcoholism, drug addiction, transportation, low edu. Level, literacy, decrease access to med. care, detention, rehab)? @ -No Was there de-escalation of care discussed even if they declined (Discuss DNR or withdrawal of care, Hospice)? DNR status @ -No What co-morbidities impacted this encounter? (DM, HTN, Smoking, COPD, CAD, Cancer, CVA, ARF, Chemo, Hep., AIDS, mental health diagnosis, sleep apnea, morbid obesity)? @ -None Was patient admitted / discharged? Hospital course, mention meds given and route, prescriptions, significant lab abnormalities, going to OR and other pertinent info. @ -33-year-old female presenting with chief complaint of right-sided abdominal pain ongoing for 1 week. She did vomit once today. She has history of cholecystectomy. History and physical exam are conducted. She does have some right-sided tenderness on exam. WBC 16.1, patient seems to chronically have leukocytosis based on previous lab values. Potassium 3.0, patient is given potassium replacement. Urine shows no infectious process or bleeding. hCG is n egative. CT shows no acute process. On reassessment the patient is resting comfortably showing no acute signs of distress. She is educated on today's findings. She is sent potassium chloride to the pharmacy for hypokalemia. Follow-up with PCP. Discharged home. Follow-up with PCP. Report back to ER with any new or worsening symptoms. Discussed return parameters and answered all questions. Patient conveyed verbal understanding and agreed to the plan. I discussed this case in detail with my attending Dr. Fair Undiagnosed new problem with uncertain prognosis? @ -No Drug Therapy requiring intensive monitoring for toxicity (Heparin, Nitro, Insulin, Cardizem)? @ -No Were any procedures done? @ -No Diagnosis/symptom? @ -Abdominal pain, hypokalemia Acute, or Chronic, or Acute on Chronic? @ -Acute Uncomplicated (without systemic symptoms) or Complicated (systemic symptoms)? @ -Uncomplicated Side effects of treatment? @ -No Exacerbation, Progression, or Severe Exacerbation? @ -No Poses a threat to life or bodily function? How? (Chest pain, [place], [place], pneumonia, PE, COPD, DKA, ARF, appy, cholecystitis, CVA, Diverticulitis, Homicidal, Suicidal, threat to staff... and all critical care pts) @ -Unlikely - Lab Data Result diagrams: 09/15/23 22:48 09/15/23 22:48 Lab Results 03/22/24 03/22/24 03/22/24 Range/Units 22:48 22:48 22:48 WBC 16.1 H (3.8-10.6) k/uL RBC 5.46 H (3.80-5.40) m/uL Hgb 15.2 (11.4-16.0) gm/dL Hct 46.0 (34.0-46.0) % MCV 84.2 (80.0-100.0) fL MCH 27.8 (25.0-35.0) pg MCHC 33.0 (31.0-37.0) g/dL RDW 13.3 (11.5-15.5) % Plt Count 378 (150-450) k/uL MPV 9.7 Neutrophils % 65 % Lymphocytes % 27 % Monocytes % 6 % Eosinophils % 2 % Basophils % 1 % Neutrophils # 10.4 H (1.3-7.7) k/uL Lymphocytes # 4.3 (1.0-4.8) k/uL Monocytes # 0.9 (0-1.0) k/uL Eosinophils # 0.3 (0-0.7) k/uL Basophils # 0.1 (0-0.2) k/uL Sodium (137-145) mmol/L Potassium (3.5-5.1) mmol/L Chloride (98-107) mmol/L Carbon Dioxide (22-30) mmol/L Anion Gap mmol/L BUN (7-17) mg/dL Creatinine (0.52-1.04) mg/dL Est GFR (CKD-EPI)AfAm (>60 ml/min/1.73 sqM) Est GFR (CKD-EPI)NonAf (>60 ml/min/1.73 sqM) Glucose (74-99) mg/dL Plasma Lactic Acid Neville (0.7-2.0) mmol/L Calcium (8.4-10.2) mg/dL Total Bilirubin (0.2-1.3) mg/dL AST (14-36) U/L ALT (4-34) U/L Alkaline Phosphatase (38-126) U/L Troponin I (0.000-0.034) ng/mL Total Protein (6.3-8.2) g/dL Albumin (3.5-5.0) g/dL Amylase (30-110) U/L Lipase (23-300) U/L Urine Color Colorless Urine Appearance Clear (Clear) Urine pH 5.0 (5.0-8.0) Ur Specific [place] 1.011 (1.001-1.035) Urine Protein Negative (Negative) Urine Glucose (UA) 4+ H (Negative) Urine Ketones Negative (Negative) Urine Blood Negative (Negative) Urine Nitrite Negative (Negative) Urine Bilirubin Negative (Negative) Urine Urobilinogen <2.0 (<2.0) mg/dL Ur Leukocyte Esterase Negative (Negative) Urine HCG, Qual Not Detected (Not Detectd) 09/15/23 09/15/23 09/15/23 Range/Units 22:48 22:48 22:48 WBC (3.8-10.6) k/uL RBC (3.80-5.40) m/uL Hgb (11.4-16.0) gm/dL Hct (34.0-46.0) % MCV (80.0-100.0) fL MCH (25.0-35.0) pg MCHC (31.0-37.0) g/dL RDW (11.5-15.5) % Plt Count (150-450) k/uL MPV Neutrophils % % Lymphocytes % % Monocytes % % Eosinophils % % Basophils % % Neutrophils # (1.3-7.7) k/uL Lymphocytes # (1.0-4.8) k/uL Monocytes # (0-1.0) k/uL Eosinophils # (0-0.7) k/uL Basophils # (0-0.2) k/uL Sodium 135 L (137-145) mmol/L Potassium 3.0 L (3.5-5.1) mmol/L Chloride 100 (98-107) mmol/L Carbon Dioxide 23 (22-30) mmol/L Anion Gap 12 mmol/L BUN 21 H (7-17) mg/dL Creatinine 0.75 (0.52-1.04) mg/dL Est GFR (CKD-EPI)AfAm >90 (>60 ml/min/1.73 sqM) Est GFR (CKD-EPI)NonAf >90 (>60 ml/min/1.73 sqM) Glucose 122 H (74-99) mg/dL Plasma Lactic Acid [place] 1.8 (0.7-2.0) mmol/L Calcium 9.7 (8.4-10.2) mg/dL Total Bilirubin 1.8 H (0.2-1.3) mg/dL AST 30 (14-36) U/L ALT 37 H (4-34) U/L Alkaline Phosphatase 75 (38-126) U/L Troponin I <0.012 (0.000-0.034) ng/mL Total Protein 7.8 (6.3-8.2) g/dL Albumin 4.5 (3.5-5.0) g/dL Amylase 88 (30-110) U/L Lipase 96 (23-300) U/L Urine Color Urine Appearance (Clear) Urine pH (5.0-8.0) Ur Specific [place] (1.001-1.035) Urine Protein (Negative) Urine Glucose (UA) (Negative) Urine Ketones (Negative) Urine Blood (Negative) Urine Nitrite (Negative) Urine Bilirubin (Negative) Urine Urobilinogen (<2.0) mg/dL Ur Leukocyte Esterase (Negative) Urine HCG, Qual (Not Detectd) Disposition Clinical Impression: Abdominal pain, Hypokalemia Disposition: HOME SELF-CARE Condition: Good Instructions (If sedation given, give patient instructions): Hypokalemia (ED), Abdominal Pain (ED) Additional Instructions: Follow-up with PCP. Report back to ER with any new or worsening symptoms. Prescriptions: Potassium Chloride ER [K-Dur 20] 20 meq PO DAILY #3 tab Is patient prescribed a controlled substance at d/c from ED?: No Referrals: Jaswinder Rivera MD [Primary Care Provider] - 1-2 days Time of Disposition: 00:49
[2023-09-15] MEDS: SODIUM CHLORIDE 0.9% 1,000 ML IV STA (23:05)
[2023-09-15] MEDS: ONDANSETRON 4 MG/2 ML VIAL IVP STA (23:06)
[2023-09-15] MEDS: KETOROLAC 15 MG/ML 1 ML VIAL IVP STA (23:06)
[2023-09-15 23:08] LABS: Basophils # (A) 0.1 k/uL (0-0.2); Basophils % (A) 1 %; Eosinophils # (A) 0.3 k/uL (0-0.7); Eosinophils % (A) 2 %; HGB 15.2 gm/dL (11.4-16.0); Lymphocytes # (A) 4.3 k/uL (1.0-4.8); Lymphocytes % (A) 27 %; MCH 27.8 pg (25.0-35.0); MCV 84.2 fL (80.0-100.0); Mean Platelet Volume 9.7; Monocytes # (A) 0.9 k/uL (0-1.0); Monocytes % (A) 6 %; Neutrophils # (A) 10.4 k/uL (1.3-7.7); Neutrophils % (A) 65 %; Platelet Count 378 k/uL (150-450); RBC 5.46 m/uL (3.80-5.40); RDW 13.3 % (11.5-15.5); WBC 16.1 k/uL (3.8-10.6)
[2023-09-15 23:10] LABS: Appearance,Urine Clear (Clear); Bilirubin,Urine Negative (Negative); Blood,Urine Negative (Negative); Color,Urine Colorless; Glucose,Urine (UA) 4+ (Negative); Ketones,Urine Negative (Negative); Leukocyte Esterase,Urine Negative (Negative); Nitrite,Urine Negative (Negative); Protein,Urine Negative (Negative); Specific Gravity,Urine 1.011 (1.001-1.035); Urobilinogen,Urine <2.0 mg/dL (<2.0)
[2023-09-15 23:53] LABS: ALT 37 U/L (4-34); AST 30 U/L (14-36); African American GFR (CKD) >90 (>60 ml/min/1.73 sqM); Albumin 4.5 g/dL (3.5-5.0); Alkaline Phosphatase 75 U/L (38-126); Amylase 88 U/L (30-110); Anion Gap 12 mmol/L; Blood Urea Nitrogen 21 mg/dL (7-17); Calcium 9.7 mg/dL (8.4-10.2); Carbon Dioxide 23 mmol/L (22-30); Chloride 100 mmol/L (98-107); Glucose 122 mg/dL (74-99); Lipase 96 U/L (23-300); Non-African American GFR(CKD) >90 (>60 ml/min/1.73 sqM); Sodium 135 mmol/L (137-145); Total Bilirubin 1.8 mg/dL (0.2-1.3); Total Protein 7.8 g/dL (6.3-8.2)
--- NOTE | 2023-09-16 00:33 | CT ---
EXAMINATION TYPE: CT abdomen pelvis w con DATE OF EXAM: 09/16/2023 HISTORY: pt arrives to ED from home w/ mother for c/o fall off couch at home @ approx 1200 pt vomiti ng this evening. Abdominal pain. CT DLP: 3529mGycm Automated Exposure Control for Dose Reduction was Utilized. CONTRAST: CT scan of the abdomen and pelvis is performed with IV Contrast, patient injected with 100 mL of Isov ue 300. COMPARISON: Prior CT February 07, 2023 FINDINGS: LUNG BASES: No significant abnormality is appreciated. LIVER/GB: Cholecystectomy clip redemonstrated. Liver remains heterogeneously hypodense consistent wit h diffuse fatty infiltration. PANCREAS: No significant abnormality is seen. SPLEEN: No significant abnormality is seen. ADRENALS: No significant abnormality is seen. KIDNEYS: Persistent cluster of small calculi lower pole right kidney including 11 mm nonobstructing c alculus lower pole right kidney calyx coronal image 67. No hydronephrosis or obstructing ureteral marcus culi seen bilaterally. BOWEL: No abnormal small or large bowel dilatation. UTERUS/ADNEXA: Anteverted uterus projects to the left of midline.. LYMPH NODES: No greater than 1cm abdominal or pelvic lymph nodes are appreciated. OSSEOUS STRUCTURES: Jtas-hi-xxjostom disc space narrowing L4-L5 level with posterior spur disc comple x effacing the anterior thecal sac. Similar findings noted at T12-L1 and to greater degree L1-L2 leve l. No significant change from prior. OTHER: No significant additional abnormality is seen. IMPRESSION: No bowel obstruction is present. No significant new or acute finding is seen to account f or patient's clinical symptoms.
[2023-09-16] MEDS: ONDANSETRON 4 MG ODT STARTER PACK 2 TAB BTL PO STA (01:10)
[2023-09-16] MEDS: POTASSIUM CHLORIDE ER 20 MEQ TAB.ER PO STA (01:10)
[2023-09-16 01:40] VITALS: BP 107/63; PULSE 96
== END 2023-09-16 01:20 | disposition home or self-care (01) ==
LOC: EC 21:38
DX: E87.6 Hypokalemia (principal); R10.9 Unspecified abdominal pain
CPT/HCPCS: 36415; 80053; 82150; 83605; 83690; 84484; 85025; 81003; 81025; 99284; 96374; 96375; 96361; J2405; J1885; 74177

== ENCOUNTER → 2023-09-22 | Outpatient (CLI) | payer OTHER ==
[2023-09-22 16:37] LABS: Basophils # (A) 0.07 X 10*3/uL (0.00-0.10); Basophils % (A) 0.6 %; Eosinophils % (A) 2.5 %; HCT 43.6 % (37.2-46.3); HGB 14.9 g/dL (12.0-15.0); Lymphocytes # (A) 2.72 X 10*3/uL (0.90-5.00); Lymphocytes % (A) 22.4 %; MCH 28.1 pg (27.0-32.0); MCHC 34.2 g/dL (32.0-37.0); MCV 82.3 FL (80.0-97.0); Mean Platelet Volume 11.6 FL (9.5-12.2); Monocytes % (A) 6.6 %; NRBC Per 100 WBC 0 X 10*3/uL (0.00-0.01); Neutrophils % (A) 67.6 %; Platelet Count 382 X 10*3/uL (140-440); RBC Morphology Normal (Normal); RDW 13.6 % (11.5-14.5); WBC 12.13 X 10*3/uL (4.50-10.00)
[2023-09-22 16:49] LABS: ALT 41 U/L (8-44); AST 26 U/L (13-35); Albumin 4.5 g/dL (3.8-4.9); Albumin/Globulin Ratio 1.55 Ratio (1.60-3.17); Alkaline Phosphatase 62 U/L (41-126); Blood Urea Nitrogen 17.2 mg/dL (9.0-27.0); Calcium 10.5 mg/dL (8.7-10.3); Carbon Dioxide 24.8 mmol/L (21.6-31.8); Chloride 100 mmol/L (96-109); Chol/HDL Ratio 2.62 Ratio; Globulin 2.9 g/dL (1.6-3.3); Glucose 153 mg/dL (70-110); LDL Cholesterol,Calculated 35.4 mg/dL (0.0-131.0); Potassium 3.8 mmol/L (3.5-5.5); Sodium 140 mmol/L (135-145); Total Bilirubin 1.1 mg/dL (0.3-1.2); Total Protein 7.4 g/dL (6.2-8.2)
== END | disposition home or self-care (01) ==
LOC: LABWHC1 10:03
PROVIDERS: ATTEND Nurse Practitioner Family
DX: E11.65 Type 2 diabetes mellitus with hyperglycemia (principal)
CPT/HCPCS: 36415; 80053; 80061; 82306; 83036; 84443; 85025

== ENCOUNTER → 2023-11-23 | Outpatient (CLI) | payer OTHER ==
[2023-11-23 10:35] LABS: HCT 40.9 % (37.2-46.3); HGB 13.1 g/dL (12.0-15.0); MCH 27.2 pg (27.0-32.0); MCV 84.9 FL (80.0-97.0); Mean Platelet Volume 10.4 FL (9.5-12.2); NRBC Per 100 WBC 0 X 10*3/uL (0.00-0.01); Platelet Count 361 X 10*3/uL (140-440); RBC 4.82 X 10*6/uL (4.10-5.20); WBC 12.77 X 10*3/uL (4.50-10.00)
[2023-11-23 10:58] LABS: Microalbumin Creatinine Ratio <15 mg/g Cr (0-30); Urine Creatinine 77.9 mg/dL (28.0-217.0)
[2023-11-23 11:06] LABS: Appearance,Urine Cloudy (Clear); Bilirubin,Urine Negative (Negative); Blood,Urine Negative (Negative); Color,Urine Yellow (Yellow); Ketones,Urine Negative (Negative); Nitrite,Urine Negative (Negative); Specific Gravity,Urine 1.021 (1.001-1.030); Urobilinogen,Urine 0.2 E.U./DL
[2023-11-23 11:18] LABS: % Iron Saturation 14.71 (12.00-45.00); ALT 14 U/L (8-44); AST 10 U/L (13-35); Albumin 4.2 g/dL (3.8-4.9); Albumin/Globulin Ratio 1.83 Ratio (1.60-3.17); Alkaline Phosphatase 59 U/L (41-126); BUN/Creat Ratio 14.57 Ratio (12.00-20.00); Blood Urea Nitrogen 10.2 mg/dL (9.0-27.0); Calcium 9.9 mg/dL (8.7-10.3); Carbon Dioxide 23.6 mmol/L (21.6-31.8); Chloride 102 mmol/L (96-109); Globulin 2.3 g/dL (1.6-3.3); Glucose 150 mg/dL (70-110); Iron 40 UG/DL (50-170); Magnesium 1.9 mg/dL (1.5-2.4); Phosphorus 4.1 mg/dL (2.4-5.1); Sodium 140 mmol/L (135-145); Total Bilirubin 0.7 mg/dL (0.3-1.2); Total Iron Binding Capacity 272 UG/DL (228-460); Total Protein 6.5 g/dL (6.2-8.2); Uric Acid 5.3 mg/dL (2.9-7.7)
[2023-11-23 11:32] LABS: Bacteria,Urine 1+ (None Seen); Uric Acid Crystals,Urine Present; Yeast (UA) Present (None Seen)
== END | disposition home or self-care (01) ==
LOC: LABWHC1 07:13
PROVIDERS: ATTEND Internal Medicine
DX: N18.1 Chronic kidney disease, stage 1 (principal); D63.1 Anemia in chronic kidney disease; N39.0 Urinary tract infection, site not specified; E55.9 Vitamin D deficiency, unspecified; N25.81 Secondary hyperparathyroidism of renal origin; M10.9 Gout, unspecified
CPT/HCPCS: 36415; 80053; 81001; 82043; 82306; 82570; 82728; 83540; 83550; 83735; 83970; 84100; 84550; 85027

== ENCOUNTER → 2023-11-30 | Outpatient (CLI) | payer OTHER ==
[2023-11-30 10:29] LABS: Basophils # (A) 0.07 X 10*3/uL (0.00-0.10); Basophils % (A) 0.6 %; Eosinophils # (A) 0.35 X 10*3/uL (0.04-0.35); Eosinophils % (A) 3.1 %; HGB 13.5 g/dL (12.0-15.0); Lymphocytes # (A) 2.66 X 10*3/uL (0.90-5.00); Lymphocytes % (A) 23.6 %; MCH 27.4 pg (27.0-32.0); MCHC 32.9 g/dL (32.0-37.0); MCV 83.3 FL (80.0-97.0); Mean Platelet Volume 10.2 FL (9.5-12.2); Monocytes # (A) 0.63 X 10*3/uL (0.20-1.00); Monocytes % (A) 5.6 %; NRBC Per 100 WBC 0 X 10*3/uL (0.00-0.01); Neutrophils # (A) 7.54 X 10*3/uL (1.80-7.70); Neutrophils % (A) 66.7 %; Platelet Count 344 X 10*3/uL (140-440); RBC 4.92 X 10*6/uL (4.10-5.20); WBC 11.29 X 10*3/uL (4.50-10.00)
[2023-11-30 11:04] LABS: BUN/Creat Ratio 20.14 Ratio (12.00-20.00); Blood Urea Nitrogen 14.1 mg/dL (9.0-27.0); Carbon Dioxide 23.4 mmol/L (21.6-31.8); Chloride 102 mmol/L (96-109); Chol/HDL Ratio 3.15 Ratio; Glucose 162 mg/dL (70-110); LDL Cholesterol,Calculated 52.7 mg/dL (0.0-131.0); Potassium 4.1 mmol/L (3.5-5.5); Sodium 140 mmol/L (135-145)
[2023-11-30 11:05] LABS: ALT 12 U/L (8-44); AST 11 U/L (13-35); Albumin 4.2 g/dL (3.8-4.9); Albumin/Globulin Ratio 1.75 Ratio (1.60-3.17); Alkaline Phosphatase 60 U/L (41-126); Calcium 9.6 mg/dL (8.7-10.3); Globulin 2.4 g/dL (1.6-3.3); Total Bilirubin 0.9 mg/dL (0.3-1.2); Total Protein 6.6 g/dL (6.2-8.2)
== END | disposition home or self-care (01) ==
LOC: LABWHC1 07:21
PROVIDERS: ATTEND Family Medicine
DX: E11.65 Type 2 diabetes mellitus with hyperglycemia (principal); E55.9 Vitamin D deficiency, unspecified
CPT/HCPCS: 36415; 80053; 80061; 82306; 83036; 85025

== ENCOUNTER → 2024-04-11 | Outpatient (CLI) | payer OTHER ==
[2024-04-11 11:28] VITALS: BP 127/83; PULSE 81; RESP 16; TEMP 97.8
--- NOTE | 2024-04-11 11:42 | P.PROGSL ---
Subjective DATE: 04/11/2024 FOLLOW UP VISIT. Patient with obstructive sleep apnea hypopnea syndrome return to sleep center for follow-up visit. Information from previous visit have been reviewed. Patient is using PAP equipment every night for the whole night, getting PAP supplies in time. The patient does not have significant problems with the mask, PAP unit and humidification. [place] sleepiness scale is 4, which is normal. I checked information from PAP unit. PAP unit pressure 10 cm H2O. Usage is 100% for more then 4 hours, average 9.2 hours per night. Leak is 1 l/m, which is in great range. Apnea Hypopnea Index is perfect 0. MEDICATIONS have been reviewed, please see below. During physical exam: GENERAL: A pleasant patient without any distress. VITAL SIGNS: Please see below, weight is 335.2 lbs. HEENT: PERRLA, EOMI.low position of soft palate, Mallapati 3. NECK: Supple. No JVD. LUNGS: Clear to percussion and to auscultation. Good air exchange. No wheezing or rhonchi. HEART: S1, S2 regular. ABDOMEN: Soft and nontender. Obese EXTREMITIES: No clubbing or cyanosis. LICENSED FINAL EXPENSE AGENTS: Awake, alert, and oriented x3. No focal deficit. Impressions: 1. Obstructive sleep apnea-hypopnea syndrome. Patient demonstrated great compliance with treatment, benefiting from treatment. 2. Obesity, BMI 53.2. 3. Diabetes mellitus, hemoglobin A1c about 7.2 according to patient. 4. Status post surgical treatment for kidney stones. 5. Status post cholecystectomy. 6. History of iron deficiency in the past. Plan: 1. Continue using PAP equipment every night for the whole night. 2. Sleep hygiene with regular time in bed for at least 7.5-8 hours 3. PAP unit should stay lower then position of the head. 4. Advised patient to remove all remaining water from humidifier canister daily and make it dry after each usage. Refill canister with fresh distilled water before each usage. 5. Watching and losing weight. 6. Precautions related to driving. No driving if feel any sleepiness. 7. I will maintain prescription for PAP supplies including mask, tube, filters. 8. Follow up visit in 8-12 months or earlier if patient has any problems. Thank you very much for allowing me to participate in the management of your patient. Chan Gregorio MD, PhD, FAASM. Diplomat of [place] [employer], Sleep Medicine Board by [place] [employer] [facility] cc: Jaswinder Rivera MD Objective - Vital Signs Vital Signs: Vital Signs Temp 97.8 F 04/11/24 11:27 Pulse 81 04/11/24 11:27 Resp 16 04/11/24 11:27 BP 127/83 04/11/24 11:27 Pulse Ox 99 04/11/24 11:27 FiO2 Intake & Output 04/10/24 04/11/24 04/11/24 18:59 06:59 18:59 Weight 152.01 kg Home Medications: Home Medications Medication Instructions Recorded Confirmed Type Ferrous Sulfate [Iron (65 MG 325 mg PO DAILY 09/28/18 04/11/24 History Elemental)] lisinopriL [Zestril] 20 mg PO DAILY 09/28/18 04/11/24 History metFORMIN HCL [Glucophage] 1,000 mg PO BID 09/28/18 04/11/24 History Ammonium Lactate Lotion 1 applic TOPICAL HS 08/06/20 09/07/23 History [Lac-Hydrin 12% Lotion] Cholecalciferol (Vitamin D3) 125 mcg PO DAILY 08/06/20 09/07/23 History [Vitamin D3 (5000 Iu)] Fluticasone Nasal [place] [Flonase 1 spr EA NOSTRIL BID 08/06/20 09/07/23 History Nasal [place]] Loratadine [Claritin] 10 mg PO DAILY 08/06/20 04/11/24 History Empagliflozin [Jardiance] 10 mg PO DAILY 12/02/20 01/05/21 History Atorvastatin [Lipitor] 40 mg PO DAILY 09/07/23 04/11/24 History Chlorthalidone 25 mg PO DAILY 09/07/23 04/11/24 History Lisinopril-Hctz 20-12.5 mg 1 tab PO DAILY 09/07/23 09/07/23 History [Zestoretic 20-12.5] Medroxyprogesterone Acetate 150 mg IM 09/07/23 History [Depo-Provera] Sodium Bicarbonate Tab 10 g PO DAILY 09/07/23 04/11/24 History Tirzepatide [Mounjaro] 5 mg SQ 09/07/23 History Potassium Chloride ER [K-Dur 20] 15 mg PO DAILY 04/11/24 04/11/24 History
== END ==
LOC: 3 N SLEEP 10:58
PROVIDERS: ATTEND Internal Medicine
CPT/HCPCS: 99212